=== PATIENT | female | born 1950 | race Caucasian/White ===

== ENCOUNTER 2016-11-25 14:35 | Outpatient (CLI) | payer MEDICARE, OTHER | END 2016-11-25 14:36 | disposition home or self-care (01) | DX: N39.0 Urinary tract infection, site not specified (principal) ==

== ENCOUNTER 2017-03-17 08:00 | Outpatient (CLI) | payer MEDICARE, OTHER | END 2017-03-17 08:01 | disposition home or self-care (01) | DX: E78.2 Mixed hyperlipidemia (principal); Z79.899 Other long term (current) drug therapy; I10 Essential (primary) hypertension ==

== ENCOUNTER 2017-03-24 07:53 | Outpatient (CLI) | payer MEDICARE, OTHER ==
[2017-03-24 08:36] LABS: HEMOGLOBIN A1C 0.5 g/dL
== END 2017-03-24 07:54 | disposition home or self-care (01) ==
LOC: LAB 07:53
PROVIDERS: ATTEND Internal Medicine
DX: R73.09 Other abnormal glucose (principal)
CPT/HCPCS: 36415; 82947; 82950; 83036

== ENCOUNTER 2017-10-18 08:35 | Outpatient (CLI) | payer MEDICARE, OTHER ==
[2017-10-18 09:37] LABS: CHOL/HDL RATIO 4.3 (<4.4); CHOLESTEROL 189 mg/dL; HDL CHOLESTEROL 44 mg/dL; LDL/HDL RATIO 2.8 (<4.4); TRIGLYCERIDES 119 mg/dL; VLDL CHOLESTEROL 24 mg/dL
== END 2017-10-18 08:36 | disposition home or self-care (01) ==
LOC: LAB 08:35
PROVIDERS: ATTEND Nurse Practitioner Primary Care
DX: Z51.81 Encounter for therapeutic drug level monitoring (principal); E78.5 Hyperlipidemia, unspecified
CPT/HCPCS: 36415; 80061; 84450; 84460

== ENCOUNTER 2017-12-07 08:00 | Outpatient (CLI) | payer MEDICARE, OTHER | END 2017-12-07 08:01 | disposition home or self-care (01) | LOC: LAB.R 08:00 | PROVIDERS: ATTEND Internal Medicine | DX: R05 Cough (principal) | CPT/HCPCS: 87275; 87276 ==

== ENCOUNTER 2018-02-16 08:00 | Outpatient (CLI) | payer MEDICARE, OTHER ==
[2018-02-16 13:31] LABS: BASOPHILS # (AUTO) 0.1 10^3/uL (0.0-0.1); BASOPHILS % (AUTO) 0.8 %; EOSINOPHILS # (AUTO) 0.2 10^3/uL (0.0-0.7); EOSINOPHILS % (AUTO) 2.8 %; HGB - HEMOGLOBIN 14.5 g/dL (12.0-16.0); LYMPHOCYTES # (AUTO) 1.9 10^3/uL (1.5-3.5); LYMPHOCYTES % (AUTO) 21.7 %; MEAN CORPUSCULAR HGB CONC 34.6 g/dL (32.0-36.0); MEAN CORPUSCULAR VOLUME 89.7 fL (81.0-99.0); MEAN PLATELET VOLUME 7.1 fL (7.9-10.8); MONOCYTES # (AUTO) 0.6 10^3/uL (0.0-1.0); MONOCYTES % (AUTO) 7.1 %; NEUTROPHILS # (AUTO) 5.9 10^3/uL (1.5-6.6); NEUTROPHILS % (AUTO) 67.6 %; PLT - PLATELET COUNT 274 10^3/uL (130-450); RED BLOOD COUNT 4.67 10^6/uL (4.20-5.40); WHITE BLOOD COUNT 8.7 x10^3/uL (4.8-10.8)
[2018-02-16 13:35] LABS: ALBUMIN 4.4 g/dL (3.2-5.5); ALBUMIN/GLOBULIN RATIO 1.5 (1.0-2.2); ALKALINE PHOSPHATASE 59 IU/L (42-121); ALT ALANINE AMINOTRANSFERASE 41 IU/L (10-60); AST ASPARTATE AMINOTRANSFERASE 26 IU/L (10-42); BILIRUBIN,TOTAL 0.8 mg/dL (0.2-1.0); BUN - BLOOD UREA NITROGEN 12 mg/dL (6-20); CALCIUM 9.1 mg/dL (8.5-10.3); CARBON DIOXIDE - CO2 27 mmol/L (21-32); CHLORIDE 100 mmol/L (101-111); CREATININE 0.7 mg/dL (0.4-1.0); GFR - MDRD 83 (>89); GLUCOSE 104 mg/dL (70-100); SODIUM 136 mmol/L (135-145); TOTAL PROTEIN 7.4 g/dL (6.7-8.2)
[2018-02-16 13:53] LABS: CRP - C-REACTIVE PROTEIN < 1.0 mg/dL (0-1.0)
== END 2018-02-16 08:01 | disposition home or self-care (01) ==
LOC: LAB.R 08:00
PROVIDERS: ATTEND Internal Medicine
DX: R53.83 Other fatigue (principal)
CPT/HCPCS: 80053; 84443; 85025; 85651; 86140

== ENCOUNTER 2018-02-19 08:00 | Outpatient (CLI) | payer MEDICARE, OTHER | END 2018-02-19 08:01 | LOC: LAB.R 08:00 | PROVIDERS: ATTEND Physician Assistant Medical | DX: N39.0 Urinary tract infection, site not specified (principal) | CPT/HCPCS: 87086 ==

== ENCOUNTER 2018-02-22 11:46 | Outpatient (CLI) | payer MEDICARE, OTHER ==
[2018-02-22] MEDS ORDERED: IOPAMIDOL-300 100 ML VIAL ONE (12:17)
[2018-02-22] MEDS ORDERED: IOPAMIDOL-300 50 ML VIAL ONE (12:17)
[2018-02-22] MEDS ORDERED: IOPAMIDOL-300 50 ML VIAL PO ONE (13:29)
[2018-02-22] MEDS ORDERED: IOPAMIDOL-300 100 ML VIAL IVP ONE (13:29)
--- NOTE | 2018-02-22 14:15 | CT Report ---
CT ABDOMEN AND PELVIS WITH AND WITHOUT CONTRAST: 02/22/2018 CLINICAL INDICATION: Fatigue, nausea, pain, history of kidney stones. TECHNIQUE: Axial CT images of the abdomen and pelvis were obtained prior to and following 100 mL Isovue 300 intravenously as well as oral contrast. COMPARISON: No previous CT is available for comparison. FINDINGS: Limited evaluation of the lung bases is unremarkable. ABDOMEN: On the unenhanced images, there is no evidence of nephrolithiasis or hydronephrosis. The kidneys demonstrate symmetric enhancement. The liver demonstrates diffuse decrease in attenuation, compatible with fatty infiltration. The spleen, pancreas and adrenal glands are unremarkable. The gallbladder is surgically absent. No bowel dilatation, free gas, or free fluid is present. PELVIS: The distal ureters and urinary bladder appear unremarkable. There is no evidence of ureterolithiasis. Scattered sigmoid diverticula are present, without CT evidence of diverticulitis. No pelvic adenopathy or free fluid is present. The patient is status post hysterectomy. Osseous structures demonstrate degenerative changes. IMPRESSION: POSTOPERATIVE CHANGES OF CHOLECYSTECTOMY AND HYSTERECTOMY. NO EVIDENT ETIOLOGY FOR PATIENT'S PAIN AND NAUSEA. CT DOSE REDUCTION STATEMENT In accordance with CT protocol optimization, one or more of the following dose reduction techniques were utilized for this exam: automated exposure control, adjustment of mA and/or KV based on patient size, or use of iterative reconstructive technique. TD: 02/22/2018 14:14
== END 2018-02-22 11:47 | disposition home or self-care (01) ==
LOC: DI 11:46
PROVIDERS: ATTEND Physician Assistant Medical
DX: R14.0 Abdominal distension (gaseous) (principal); R10.9 Unspecified abdominal pain; R53.83 Other fatigue; R11.0 Nausea; Z87.442 Personal history of urinary calculi; Z90.49 Acquired absence of other specified parts of digestive tract; Z90.710 Acquired absence of both cervix and uterus
CPT/HCPCS: 74178; Q9967

== ENCOUNTER 2018-06-22 11:13 | Outpatient (CLI) | payer MEDICARE, OTHER ==
[2018-06-22 14:06] LABS: BILIRUBIN,URINE NEGATIVE (NEGATIVE); GLUCOSE, URINE (UA) NEGATIVE (NEGATIVE); KETONES,URINE (UA) NEGATIVE (NEGATIVE); LEUKOCYTE ESTERASE, URINE TRACE (NEGATIVE); NITRITE,URINE NEGATIVE (NEGATIVE); OCCULT BLOOD,URINE NEGATIVE (NEGATIVE); PH,URINE 6.5 PH (5.0-7.5); PROTEIN,URINE NEGATIVE (NEGATIVE); UROBILINOGEN,URINE 0.2 (NORMAL) E.U./dL (NORMAL)
[2018-06-22 14:23] LABS: CLARITY,URINE CLEAR (CLEAR)
[2018-06-22 14:25] LABS: BACTERIA,URINE Few /HPF (None Seen); MUCUS,URINE Few Strands; RBC,URINE 0-5 /HPF (0-5); SQUAMOUS EPITHELIAL CELL,UR FEW Squamous (<= Few)
== END 2018-06-22 11:14 | disposition home or self-care (01) ==
LOC: LAB.R 11:13
PROVIDERS: ATTEND Nurse Practitioner Primary Care
DX: N30.00 Acute cystitis without hematuria (principal)
CPT/HCPCS: 81001; 81003; 87086

== ENCOUNTER 2018-07-06 17:38 | Emergency (ER) | payer MEDICARE, OTHER ==
[2018-07-06 19:11] LABS: BASOPHILS # (AUTO) 0.1 10^3/uL (0.0-0.1); BASOPHILS % (AUTO) 0.9 %; EOSINOPHILS # (AUTO) 0.2 10^3/uL (0.0-0.7); EOSINOPHILS % (AUTO) 2.5 %; HGB - HEMOGLOBIN 13.7 g/dL (12.0-16.0); LYMPHOCYTES # (AUTO) 1.7 10^3/uL (1.5-3.5); LYMPHOCYTES % (AUTO) 21.3 %; MEAN CORPUSCULAR HGB CONC 35.2 g/dL (32.0-36.0); MEAN PLATELET VOLUME 6.5 fL (7.9-10.8); MONOCYTES # (AUTO) 0.7 10^3/uL (0.0-1.0); MONOCYTES % (AUTO) 8.4 %; NEUTROPHILS # (AUTO) 5.4 10^3/uL (1.5-6.6); NEUTROPHILS % (AUTO) 66.9 %; PLT - PLATELET COUNT 237 10^3/uL (130-450); RED BLOOD COUNT 4.29 10^6/uL (4.20-5.40); RED CELL DISTRIBUTION WIDTH 12.1 % (12.0-15.0); WHITE BLOOD COUNT 8.1 x10^3/uL (4.8-10.8)
[2018-07-06 19:21] LABS: ALBUMIN/GLOBULIN RATIO 1.4 (1.0-2.2); BILIRUBIN,TOTAL 0.6 mg/dL (0.2-1.0); CALCIUM 9.5 mg/dL (8.5-10.3); CREATININE 0.7 mg/dL (0.4-1.0); TOTAL PROTEIN 6.9 g/dL (6.7-8.2)
[2018-07-06 19:22] LABS: BILIRUBIN,URINE NEGATIVE (NEGATIVE); GLUCOSE, URINE (UA) NEGATIVE (NEGATIVE); KETONES,URINE (UA) NEGATIVE (NEGATIVE); LEUKOCYTE ESTERASE, URINE MODERATE (NEGATIVE); NITRITE,URINE NEGATIVE (NEGATIVE); OCCULT BLOOD,URINE TRACE-INTA (NEGATIVE); PH,URINE 6.5 PH (5.0-7.5); PROTEIN,URINE NEGATIVE (NEGATIVE); UROBILINOGEN,URINE 0.2 (NORMAL) E.U./dL (NORMAL)
[2018-07-06 19:34] LABS: CLARITY,URINE CLEAR (CLEAR); SQUAMOUS EPITHELIAL CELL,UR MANY Squamous (<= Few)
[2018-07-06 19:35] LABS: BACTERIA,URINE Rare /HPF (None Seen)
[2018-07-06] MEDS ORDERED: ONDANSETRON 4 MG/2 ML VIAL IVP STA (20:31)
[2018-07-06] MEDS ORDERED: SODIUM CHLORIDE 0.9% 1,000 ML IV ONE (20:31)
[2018-07-06] MEDS ORDERED: HYDROmorphone 1 MG/ML CARPUJECT IVP STA (20:31)
[2018-07-06] MEDS ORDERED: IOPAMIDOL-300 100 ML VIAL ONE (20:49)
[2018-07-06] MEDS ORDERED: IOPAMIDOL-300 100 ML VIAL IVP ONE (21:13)
[2018-07-06] MEDS ORDERED: MAG HYDROX/AL HYDROX/SIMETH 30 ML UDC PO STA (21:28)
[2018-07-06] MEDS ORDERED: FAMOTIDINE 20 MG in SODIUM CHLORIDE 0.9% 50 ML IV ONE (21:28)
[2018-07-06] MEDS ORDERED: ACETAMINOPHEN 500 MG TABLET PO STA (21:37)
[2018-07-06] MEDS ORDERED: KETOROLAC 60 MG/2 ML VIAL IVP STA (21:37)
--- NOTE | 2018-07-06 21:57 | CT Report ---
Reason: flank pain Procedure Date: 07/06/2018 Accession Number: [id number] / [id number] Procedure: CT - Abdomen/Pelvis W/ CPT Code: FULL RESULT: EXAM: CT ABDOMEN AND PELVIS EXAM DATE: 07/06/2018 09:20 PM. CLINICAL HISTORY: Right flank pain. COMPARISONS: ABDOMEN/PELVIS W/WO 02/22/2018. TECHNIQUE: Routine helical CT imaging was performed through the abdomen and pelvis. IV contrast: 100 cc of Isovue-300. Enteric contrast: No. Reconstructions: Coronal and sagittal. In accordance with CT protocol optimization, one or more of the following dose reduction techniques were utilized for this exam: automated exposure control, adjustment of mA and/or KV based on patient size, or use of iterative reconstructive technique. FINDINGS: Lung Bases: Unremarkable. Liver: Diffuse low density Gallbladder/Bile Ducts: Cholecystectomy. No dilated ducts. Spleen: Normal. Pancreas: Normal. Adrenal Glands: Normal. Kidneys: Normal. No masses or hydronephrosis. Peritoneal Cavity/Bowel: Mild diverticulosis. No free fluid, free air or adenopathy. No masses or acute inflammatory process. Nonvisualized appendix. Pelvic Organs: Hysterectomy. Unremarkable bladder. Vasculature: No aneurysms or other significant abnormality. Bones: No significant abnormality. Other: None. IMPRESSION: 1. Mild diverticulosis without diverticulitis or other acute bowel abnormality. 2. Nonvisualized appendix. 3. Hepatic steatosis. 4. Cholecystectomy and hysterectomy noted. RADIA
[2018-07-06] MEDS ORDERED: LIDOCAINE VISCOUS 2% 15 ML UDC MM STA (22:51)
[2018-07-06] MEDS ORDERED: cefTRIAXone 1 GM in SODIUM CHLORIDE 0.9% MINIBAG 100 ML IV STA (22:51)
--- NOTE | 2018-07-06 22:53 | ED Physician Documentation ---
PD HPI ABD PAIN - Stated complaint Stated Complaint: ABD PX/NAUSEA - Chief complaint Chief Complaint: Abd Pain - Additional information Additional information: 68-year-old female presents the emergency department with increasing right flank pain which started earlier today. The patient reports not feeling well for the past couple days but developed flank pain today. No radiation. Symptoms are described as moderate. No fevers. No relieving factors. Review of Systems Constitutional: reports: Chills, Fatigue. 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: Uterine cancer : Kidney stones Psych: Depression - Past Surgical History General: Cholecystectomy, Appendectomy, Colonoscopy, EGD Ortho: Knee replacement /JOINERY FACTORY WORKER: Hysterectomy, Oophrectomy - Present Medications Home Medications: Ambulatory Orders Medication Instructions Recorded Confirmed Cephalexin [Keflex] 500 mg PO BID #14 capsule 07/06/18 - Allergies Allergies/Adverse Reactions: Allergies Allergy/AdvReac Type Severity Reaction Status Date / Time codeine Allergy Respiratory Verified 07/06/18 18:02 morphine Allergy Emesis Verified 07/06/18 18:02 - Social History Does the pt smoke?: No Smoking Status: Never smoker Does the pt drink ETOH?: No Substance Use and Type: Marijuana PD ED PE NORMAL - General General: Alert and oriented X 3, No acute distress - HEENT HEENT: Atraumatic, PERRL, EOMI, Ears normal - Neck Neck: Supple, no meningeal sign - Cardiac Cardiac: RRR, Strong equal pulses - Respiratory Respiratory: Clear bilaterally - Abdomen Abdomen: Soft, Non tender, Non distended, Other (The patient is tender in her right flank, no rash) - Derm Derm: Normal color, No rash - Extremities Extremities: No deformity, Normal ROM s pain, No edema - Neuro Neuro: Alert and oriented X 3, No motor deficit, Normal speech - Psych Psych: Normal affect Results - Vitals Vitals: Vital Signs - 24 hr 07/06/18 07/06/1818 17:57 19:16 20:44 Temperature 37.1 C 37.2 C 37.1 C Heart Rate 90 86 69 Respiratory 18 20 20 Rate Blood Pressure 134/113 H 145/84 H 122/61 O2 Saturation 96 97 96 07/06/18 22:28 Temperature 37.1 C Heart Rate 72 Respiratory 20 Rate Blood Pressure 134/73 H O2 Saturation 96 Oxygen O2 Source Room air - Labs Labs: Laboratory Tests 07/06/18 07/06/18 07/06/18 19:00 19:00 19:00 WBC 8.1 RBC 4.29 Hgb 13.7 Hct 39.0 MCV 91.0 MCH 32.0 H MCHC 35.2 RDW 12.1 Plt Count 237 MPV 6.5 L Neut # (Auto) 5.4 Lymph # (Auto) 1.7 [place] # (Auto) 0.7 Eos # (Auto) 0.2 Baso # (Auto) 0.1 Absolute Nucleated RBC 0.00 Nucleated RBC % 0.0 Sodium 137 Potassium 3.7 Chloride 99 L Carbon Dioxide 28 Anion Gap 10.0 BUN 14 Creatinine 0.7 Estimated GFR (MDRD) 83 L Glucose 98 Calcium 9.5 Total Bilirubin 0.6 AST 28 ALT 38 Alkaline Phosphatase 62 Total Protein 6.9 Albumin 4.0 Globulin 2.9 Albumin/Globulin Ratio 1.4 Lipase 30 Urine Color YELLOW Urine Clarity CLEAR Urine pH 6.5 Ur Specific [place] <=1.005 Urine Protein NEGATIVE Urine Glucose (UA) NEGATIVE Urine Ketones NEGATIVE Urine Occult Blood TRACE-INTA Urine Nitrite NEGATIVE Urine Bilirubin NEGATIVE Urine Urobilinogen 0.2 (NORMAL) Ur Leukocyte Esterase MODERATE H Urine RBC 6-10 H Urine WBC >25 H Ur Squamous Epith Cells MANY Squamous H Urine Bacteria Rare Ur Microscopic Review INDICATED Urine Culture Comments NOT INDICATED - Rads (name of study) CT abdomen pelvis Radiology: Final report received (1. Mild diverticulosis without diverticulitis or other acute bowel abnormality. 2. Nonvisualized appendix.4. Cholecystectomy and hysterectomy noted. ) PD MEDICAL DECISION MAKING - ED course ED course: The patient developed some intervention after the initial pain medications. The patient was treated and on reevaluation the patient is resting comfortably and her symptoms appear much improved. The patient's workup does not reveal an acute etiology that would necessitate admission to the hospital or acute surgical consultation. The patient appears appropriate at this time for discharge home in ongoing outpatient management. I discussed with her the findings and plan and recommended follow-up primary care. I discussed warning signs and recommended returning to the emergency department immediately for worsening or any concerns. - Sepsis Event Vital Signs: Vital Signs - 24 hr 07/06/18 07/06/18 07/06/18 17:57 19:16 20:44 Temperature 37.1 C 37.2 C 37.1 C Heart Rate 90 86 69 Respiratory 18 20 20 Rate Blood Pressure 134/113 H 145/84 H 122/61 O2 Saturation 96 97 96 07/06/18 22:28 Temperature 37.1 C Heart Rate 72 Respiratory 20 Rate Blood Pressure 134/73 H O2 Saturation 96 Oxygen O2 Source Room air Departure - Departure Disposition: 01 Home, Self Care Clinical Impression: Acute flank pain UTI (urinary tract infection) Qualifiers: Urinary tract infection type: acute cystitis Hematuria presence: with hematuria Qualified Code(s): N30.01 - Acute cystitis with hematuria Condition: Good Instructions: Abdominal Pain, ED Bladder Infec Cystitis Vs Pyelo Ch Follow-Up: Chris Serna MD [Primary Care Provider] - Within 1 week Prescriptions: Cephalexin [Keflex] 500 mg PO BID #14 capsule Comments: Please return to the emergency department for worsening symptoms or any concerns
[2018-07-06] MEDS ORDERED: FLUCONAZOLE 100 MG TABLET PO STA ×2 (23:46→23:51)
[2018-07-07 00:02] VITALS: BP 132/71
== END 2018-07-07 | disposition home or self-care (01) ==
LOC: ED 17:38
DX: R10.31 Right lower quadrant pain (principal); N30.01 Acute cystitis with hematuria; I10 Essential (primary) hypertension; E78.00 Pure hypercholesterolemia, unspecified; Z85.42 Personal history of malignant neoplasm of other parts of uterus; Z96.659 Presence of unspecified artificial knee joint; Z90.710 Acquired absence of both cervix and uterus; Z90.721 Acquired absence of ovaries, unilateral; Z87.442 Personal history of urinary calculi
CPT/HCPCS: 36415; 74177; 80053; 81001; 83690; 85025; 96361; 96365; 96367; 96375; 99284; A9270; J1170; J7040; Q9967; 81003; 87086

== ENCOUNTER 2018-10-10 17:17 | Emergency (ER) | payer MEDICARE, OTHER ==
[2018-10-10 17:24] VITALS: BP 140/68
--- NOTE | 2018-10-10 17:25 | ED Physician Documentation ---
PD HPI FEMALE - Stated complaint Stated Complaint: NO URINATION/POST OP - Chief complaint Chief Complaint: General - History obtained from History obtained from: Patient - History of Present Illness Timing - onset: Today Timing - duration: Days (1/2) Timing - details: Gradual onset Recently seen: Clinic (Seen this morning for recheck post op and had griffiths removed post op bladder/vaginal surgery 2 days ago.Has had poor to now no urine output through the day and is feeling uncomfortable now.) Review of Systems Constitutional: denies: Fever, Chills Cardiac: denies: Chest pain / pressure Respiratory: denies: Dyspnea PD PAST MEDICAL HISTORY - Past Medical History Cardiovascular: Hypertension, High cholesterol Respiratory: Asthma Neuro: Headaches GI: GERD 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 : Kidney stones Psych: Depression - Past Surgical History General: Cholecystectomy, Appendectomy, Colonoscopy, EGD Ortho: Knee replacement /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: Hysterectomy, Oophrectomy - Present Medications Home Medications: Ambulatory Orders Medication Instructions Recorded Confirmed Cephalexin [Keflex] 500 mg PO BID #14 capsule 07/06/18 Nitrofurantoin Monohyd/M-Cryst 100 mg PO BID #10 capsule 10/10/18 [Macrobid 100 mg Capsule] - Allergies Allergies/Adverse Reactions: Allergies Allergy/AdvReac Type Severity Reaction Status Date / Time cephalexin [From Keflex] Allergy Unknown Verified 10/10/18 17:24 codeine Allergy Respiratory Verified 10/10/18 17:24 morphine Allergy Emesis Verified 10/10/18 17:24 - Social History Does the pt smoke?: No Smoking Status: Never smoker Does the pt drink ETOH?: No PD ED PE NORMAL - Vitals Vital signs reviewed: Yes - General General: Alert and oriented X 3, Well developed/nourished - Abdomen Abdomen: Soft, Other (fullness in suprapubic area with some tenderness. ) - Female Female : Deferred - Derm Derm: Normal color, Warm and dry Results - Vitals Vitals: Oxygen O2 Source Room air - Labs Labs: Microbiology 10/10/18 18:34 Urine Culture - Preliminary Urine,Catheterized Laboratory Tests 10/10/18 18:34 Urine Color YELLOW Urine Clarity CLEAR Urine pH 7.0 Ur Specific [place] 1.010 Urine Protein NEGATIVE Urine Glucose (UA) NEGATIVE Urine Ketones NEGATIVE Urine Occult Blood MODERATE H Urine Nitrite POSITIVE H Urine Bilirubin NEGATIVE Urine Urobilinogen 0.2 (NORMAL) Ur Leukocyte Esterase SMALL H Urine RBC 0-5 Urine WBC 6-10 H Ur Squamous Epith Cells NONE SEEN Urine Bacteria Moderate H Ur Microscopic Review INDICATED Urine Culture Comments INDICATED PD MEDICAL DECISION MAKING - ED course Complexity details: re-evaluated patient (pt feeling better after bladder drained. ), d/w patient, d/w PMD (the surgical office called and said they would follow up with her on Monday (in 2 days). ) Departure - Departure Disposition: Home, Self Care Clinical Impression: Postoperative urinary retention Condition: Stable Record reviewed to determine appropriate education?: Yes Instructions: ED Catheter Care Griffiths Follow-Up: Chris Serna MD [Primary Care Provider] - Rosa Elena White MD [Physician No Access] - Prescriptions: Nitrofurantoin Monohyd/M-Cryst [Macrobid 100 mg Capsule] 100 mg PO BID #10 capsule Comments: Keep the catheter in and your clinic said they will follow-up with you on Monday for removal of it again. They asked that we start an antibiotic and will have you take Macrobid twice daily. Drink lots of fluids. Discharge Date/Time: 10/10/18 19:00
[2018-10-10] MEDS ORDERED: NITROFURANTOIN MACRO 100 MG CAPSULE PO STA (17:57)
[2018-10-10 18:47] LABS: BILIRUBIN,URINE NEGATIVE (NEGATIVE); GLUCOSE, URINE (UA) NEGATIVE (NEGATIVE); KETONES,URINE (UA) NEGATIVE (NEGATIVE); LEUKOCYTE ESTERASE, URINE SMALL (NEGATIVE); NITRITE,URINE POSITIVE (NEGATIVE); OCCULT BLOOD,URINE MODERATE (NEGATIVE); PROTEIN,URINE NEGATIVE (NEGATIVE); UROBILINOGEN,URINE 0.2 (NORMAL) E.U./dL (NORMAL)
[2018-10-10 18:48] LABS: CLARITY,URINE CLEAR (CLEAR)
[2018-10-10 18:58] LABS: BACTERIA,URINE Moderate /HPF (None Seen); RBC,URINE 0-5 /HPF (0-5); SQUAMOUS EPITHELIAL CELL,UR NONE SEEN (<= Few)
== END 2018-10-10 19:00 | disposition home or self-care (01) ==
LOC: ED 17:17
DX: N99.89 Other postprocedural complications and disorders of genitourinary system (principal); R33.8 Other retention of urine; I10 Essential (primary) hypertension; E78.00 Pure hypercholesterolemia, unspecified; Z96.659 Presence of unspecified artificial knee joint
CPT/HCPCS: 51702; 81001; 87077; 87086; 87181; 99283; A9270; 81003

== ENCOUNTER 2018-10-22 11:54 | Outpatient (CLI) | payer MEDICARE, OTHER ==
--- NOTE | 2018-10-22 14:36 | XRAY Report ---
Reason: CALCULUS OF KIDNEY Procedure Date: 10/22/2018 Accession Number: [id number] / [id number] Procedure: XR - Abdomen 1 View X-Ray CPT Code: 15831 FULL RESULT: EXAM: ABDOMEN RADIOGRAPHY EXAM DATE: 10/22/2018 12:36 PM. CLINICAL HISTORY: Calculus of kidney. COMPARISON: None. TECHNIQUE: 1 view. FINDINGS: Bowel Gas Pattern: Within normal limits. No dilated loops. Other: A well-rounded calcific density projecting over the pelvis to left of center is felt to represent a phlebolith given the appearance. IMPRESSION: No definite renal calculus. RADIA
== END 2018-10-22 11:55 | disposition home or self-care (01) ==
LOC: DI 11:54
PROVIDERS: ATTEND Specialist
DX: N20.0 Calculus of kidney (principal)
CPT/HCPCS: 74018

== ENCOUNTER 2018-11-28 08:00 | Outpatient (CLI) | payer MEDICARE, OTHER ==
[2018-11-28 11:41] LABS: BASOPHILS # (AUTO) 0.1 10^3/uL (0.0-0.1); BASOPHILS % (AUTO) 0.8 %; EOSINOPHILS # (AUTO) 0.3 10^3/uL (0.0-0.7); EOSINOPHILS % (AUTO) 3.6 %; HGB - HEMOGLOBIN 13.7 g/dL (12.0-16.0); LYMPHOCYTES # (AUTO) 1.3 10^3/uL (1.5-3.5); LYMPHOCYTES % (AUTO) 17.1 %; MEAN CORPUSCULAR HEMOGLOBIN 31.3 pg (27.0-31.0); MEAN CORPUSCULAR HGB CONC 34.7 g/dL (32.0-36.0); MEAN CORPUSCULAR VOLUME 90.2 fL (81.0-99.0); MONOCYTES # (AUTO) 0.6 10^3/uL (0.0-1.0); MONOCYTES % (AUTO) 7.3 %; NEUTROPHILS # (AUTO) 5.5 10^3/uL (1.5-6.6); NEUTROPHILS % (AUTO) 71.2 %; PLT - PLATELET COUNT 247 10^3/uL (130-450); RED BLOOD COUNT 4.37 10^6/uL (4.20-5.40); RED CELL DISTRIBUTION WIDTH 12.5 % (12.0-15.0); WHITE BLOOD COUNT 7.8 x10^3/uL (4.8-10.8)
[2018-11-28 14:14] LABS: ALBUMIN/GLOBULIN RATIO 1.2 (1.0-2.2); ALKALINE PHOSPHATASE 60 IU/L (42-121); ALT ALANINE AMINOTRANSFERASE 33 IU/L (10-60); AST ASPARTATE AMINOTRANSFERASE 27 IU/L (10-42); BILIRUBIN,TOTAL 0.3 mg/dL (0.2-1.0); BUN - BLOOD UREA NITROGEN 13 mg/dL (6-20); CALCIUM 8.8 mg/dL (8.5-10.3); CARBON DIOXIDE - CO2 27 mmol/L (21-32); CHLORIDE 101 mmol/L (101-111); CHOLESTEROL 186 mg/dL; CREATININE 0.6 mg/dL (0.4-1.0); GFR - MDRD 99 (>89); GLUCOSE 98 mg/dL (70-100); HDL CHOLESTEROL 47 mg/dL; LDL CHOLESTEROL,CALCULATED 105 mg/dL; LDL/HDL RATIO 2.2 (<4.4); SODIUM 136 mmol/L (135-145); TOTAL PROTEIN 7.3 g/dL (6.7-8.2); VLDL CHOLESTEROL 34 mg/dL
== END 2018-11-28 23:59 | disposition home or self-care (01) ==
LOC: LAB.R 08:00
PROVIDERS: ATTEND Nurse Practitioner Primary Care
DX: E78.5 Hyperlipidemia, unspecified (principal); R53.83 Other fatigue; Z51.81 Encounter for therapeutic drug level monitoring
CPT/HCPCS: 80053; 80061; 83721; 84443; 85025

== ENCOUNTER 2019-01-24 11:45 | Outpatient (CLI) | payer MEDICARE, OTHER ==
[2019-01-24 12:26] LABS: GLUCOSE, URINE (UA) 100 mg/dL (NEGATIVE); KETONES,URINE (UA) NEGATIVE (NEGATIVE); LEUKOCYTE ESTERASE, URINE MODERATE (NEGATIVE); NITRITE,URINE POSITIVE (NEGATIVE); OCCULT BLOOD,URINE TRACE-INTA (NEGATIVE); PH,URINE 6.5 PH (5.0-7.5); PROTEIN,URINE 30 mg/dL (NEGATIVE); UROBILINOGEN,URINE 4 E.U./dL (NORMAL)
[2019-01-24 12:34] LABS: BILIRUBIN,URINE NEGATIVE (NEGATIVE); ICTOTEST,URINE NEGATIVE
[2019-01-24 12:35] LABS: CLARITY,URINE HAZY (CLEAR)
[2019-01-24 12:37] LABS: BACTERIA,URINE Many /HPF (None Seen); RBC,URINE 0-5 /HPF (0-5); SQUAMOUS EPITHELIAL CELL,UR RARE Squamous (<= Few)
== END 2019-01-24 11:46 | disposition home or self-care (01) ==
LOC: LAB 11:45
PROVIDERS: ATTEND Specialist
DX: R30.0 Dysuria (principal)
CPT/HCPCS: 81001; 81003; 87086; 87181

== ENCOUNTER 2019-08-15 08:00 | Outpatient (CLI) | payer MEDICARE, OTHER | END 2019-08-15 23:59 | disposition home or self-care (01) | LOC: LAB.R 08:00 | PROVIDERS: ATTEND Family Medicine | DX: R30.0 Dysuria (principal) | CPT/HCPCS: 87086 ==

== ENCOUNTER 2019-08-30 08:30 | Outpatient (CLI) | payer MEDICARE, OTHER ==
[2019-08-30 09:13] LABS: ALBUMIN/GLOBULIN RATIO 1.4 (1.0-2.2); BILIRUBIN,TOTAL 0.6 mg/dL (0.2-1.0); CREATININE 0.7 mg/dL (0.4-1.0); TOTAL PROTEIN 6.8 g/dL (6.7-8.2)
== END 2019-08-30 08:31 | disposition home or self-care (01) ==
LOC: LAB 08:30
PROVIDERS: ATTEND Nurse Practitioner
DX: I10 Essential (primary) hypertension (principal); R20.0 Anesthesia of skin
CPT/HCPCS: 36415; 80053

== ENCOUNTER 2019-09-04 10:02 | Outpatient (CLI) | payer MEDICARE, OTHER ==
[2019-09-04 10:47] LABS: ALBUMIN 4.2 g/dL (3.2-5.5); ALBUMIN/GLOBULIN RATIO 1.3 (1.0-2.2); BILIRUBIN,TOTAL 0.7 mg/dL (0.2-1.0); CALCIUM 9.3 mg/dL (8.5-10.3); CREATININE 0.7 mg/dL (0.4-1.0); TOTAL PROTEIN 7.4 g/dL (6.7-8.2)
== END 2019-09-04 10:03 | disposition home or self-care (01) ==
LOC: LAB 10:02
PROVIDERS: ATTEND Nurse Practitioner
DX: R20.0 Anesthesia of skin (principal); I10 Essential (primary) hypertension
CPT/HCPCS: 36415; 80053

== ENCOUNTER 2019-09-05 15:23 | Outpatient (CLI) | payer MEDICARE, OTHER ==
[2019-09-05 15:41] LABS: BASOPHILS # (AUTO) 0.1 10^3/uL (0.0-0.1); BASOPHILS % (AUTO) 0.9 %; EOSINOPHILS # (AUTO) 0.3 10^3/uL (0.0-0.7); EOSINOPHILS % (AUTO) 2.9 %; LYMPHOCYTES # (AUTO) 2.3 10^3/uL (1.5-3.5); LYMPHOCYTES % (AUTO) 26.2 %; MEAN CORPUSCULAR HEMOGLOBIN 31.1 pg (27.0-31.0); MEAN CORPUSCULAR HGB CONC 33.3 g/dL (32.0-36.0); MEAN CORPUSCULAR VOLUME 93.3 fL (81.0-99.0); MEAN PLATELET VOLUME 8.5 fL (7.9-10.8); MONOCYTES # (AUTO) 0.8 10^3/uL (0.0-1.0); NEUTROPHILS # (AUTO) 5.2 10^3/uL (1.5-6.6); NEUTROPHILS % (AUTO) 60.7 %; PLT - PLATELET COUNT 240 10^3/uL (130-450); RED CELL DISTRIBUTION WIDTH 11.9 % (12.0-15.0); WHITE BLOOD COUNT 8.6 x10^3/uL (4.8-10.8)
[2019-09-05 16:38] LABS: HB2 TOTAL 14.4 g/dL; HEMOGLOBIN A1C 0.51 g/dL; HEMOGLOBIN A1C % 5.4 % (4.6-6.2)
--- NOTE | 2019-09-05 18:27 | XRAY Report ---
Reason: FEVER,COUGH,ASTHMA Procedure Date: 09/05/2019 Accession Number: [id number] / [id number] Procedure: XR - Chest 2 View X-Ray CPT Code: 63742 FULL RESULT: EXAM: CHEST RADIOGRAPHY EXAM DATE: 09/05/2019 03:50 PM. CLINICAL HISTORY: FEVER,COUGH,ASTHMA. COMPARISON: XR CHEST PA AND LAT 11/15/2012 1:41 PM. TECHNIQUE: 2 views. FINDINGS: Lungs/Pleura: No focal opacities evident. No pleural effusion. No pneumothorax. Normal volumes. Mediastinum: Borderline heart size. Other: Surgical clips upper abdomen IMPRESSION: Clear lungs. No acute findings. RADIA
== END 2019-09-05 15:24 | disposition home or self-care (01) ==
LOC: DI 15:23
PROVIDERS: ATTEND Family Medicine
DX: J45.909 Unspecified asthma, uncomplicated (principal); R50.9 Fever, unspecified; R05 Cough; R73.01 Impaired fasting glucose
CPT/HCPCS: 36415; 71046; 83036; 85025; 85651; 86140

== ENCOUNTER 2019-09-19 09:56 | Outpatient (CLI) | payer MEDICARE, OTHER | END 2019-09-19 23:59 | disposition home or self-care (01) | LOC: LAB.R 09:56 | PROVIDERS: ATTEND Nurse Practitioner | DX: R50.9 Fever, unspecified (principal) | CPT/HCPCS: 87086 ==

== ENCOUNTER 2019-09-24 09:30 | Outpatient (CLI) | payer MEDICARE, OTHER | END 2019-09-24 23:59 | disposition home or self-care (01) | LOC: LAB.R 09:30 | PROVIDERS: ATTEND Nurse Practitioner | DX: N39.0 Urinary tract infection, site not specified (principal); R50.9 Fever, unspecified | CPT/HCPCS: 87086 ==

== ENCOUNTER 2019-10-21 09:52 | Outpatient (CLI) | payer MEDICARE, OTHER ==
--- NOTE | 2019-10-21 15:38 | MRI Report ---
Reason: RT SHOULDER PAIN Procedure Date: 10/21/2019 Accession Number: [id number] / [id number] Procedure: MRI - Shoulder RT W/O CPT Code: Final Report FULL RESULT: EXAM: RIGHT SHOULDER MRI WITHOUT CONTRAST EXAM DATE: 10/21/2019 11:06 AM. CLINICAL HISTORY: Right shoulder pain. COMPARISON: No previous scans available for comparison at time of dictation. TECHNIQUE: Multiplanar, multisequence T1-weighted and fluid-sensitive sequences of the shoulder without contrast. Other: None. FINDINGS: Acromioclavicular Region: The acromion is type II unipartite. AC joint shows moderate osteoarthritic change, marked arthrosis and synovial hypertrophic changes are present. The coracoacromial and coracoclavicular ligaments are intact. There is some bursal fluid present as well. Glenohumeral Region: No subluxation. There is mild global thinning of the articular cartilage in both sides of the glenohumeral joint. The glenohumeral ligaments and joint capsule are unremarkable. Bone Marrow: No fracture, marrow edema or bone lesions. Labrum: The labrum is unremarkable on this nonarthrographic study. Musculature/Rotator Cuff: Full thickness tear anterior distal supraspinatus tendon tear with fluid. This is 1.2 cm from front to back by 0.8 cm from side to side. Remaining portion of the supraspinatus is thickened and shows increased T2 signal. Similar but less severe changes are also seen in the infraspinatus and subscapularis portions. No other tears. Teres minor is normal. No proximal muscle edema or fatty atrophy. Biceps Tendon: The long head of the biceps tendon and biceps edda are intact. Other: The subcutaneous tissues are unremarkable. IMPRESSION: 1. Type II unipartite undersurface osseous acromion shape. AC joint shows moderate osteoarthritic change. Some bursal fluid is also present. 2. Full-thickness tear anterior distal supraspinatus tendon is filled with fluid. This is 1.2 x 0.8 cm. 3. No other worrisome imaging features. RADIA
== END 2019-10-21 09:53 | disposition home or self-care (01) ==
LOC: DI 09:52
PROVIDERS: ATTEND Orthopaedic Surgery
DX: M19.011 Primary osteoarthritis, right shoulder (principal); M75.101 Unspecified rotator cuff tear or rupture of right shoulder, not specified as traumatic

== ENCOUNTER 2019-11-04 09:06 | Outpatient (CLI) | payer MEDICARE, OTHER ==
[2019-11-04] MEDS ORDERED: GADOBUTROL 10 MMOL/10 ML VIAL ONE (09:12)
[2019-11-04] MEDS ORDERED: GADOBUTROL 10 MMOL/10 ML VIAL IVP ONE (13:14)
--- NOTE | 2019-11-05 10:26 | MRI Report ---
Reason: TRIGEMINAL NEURALGIA LT Procedure Date: 11/04/2019 Accession Number: [id number] / [id number] Procedure: MRI - Brain W/WO CPT Code: Final Report FULL RESULT: EXAM: MRI BRAIN WITHOUT AND WITH CONTRAST EXAM DATE: 11/04/2019 02:28 PM. CLINICAL HISTORY: Trigeminal neuralgia left. COMPARISON: None. TECHNIQUE: Multiplanar, multisequence T1-weighted and fluid-sensitive MR sequences of the brain were performed before and after administration of intravenous contrast. Sequences optimized for routine evaluation. Other: None. IV Contrast: . FINDINGS: No abnormal restricted diffusion signal or magnetic susceptibility is present in the brain parenchyma. Age appropriate prominence of the ventricles and sulci is noted. FLAIR hyperintensities are seen scattered throughout the cerebral hemisphere white matter bilaterally. There is an expected flow void in the major intracranial vessels at the skull base. Minimal patchy FLAIR hyperintense signal is seen in the crys. No mass is seen involving the cisternal segment of either 5th cranial nerve. There is no mass present in either Meckel's cave. Vascular structures are seen coursing near the cisternal segment of each 5th cranial nerve. These do not demonstrate mass effect. Specifically, no vascular structure is seen demonstrate a mass effect on the nerve root entry zone of either 5th cranial nerve cisternal segment. No enhancing mass is present in either cerebellopontine angle or internal auditory canal. The cavernous sinuses enhance in symmetric fashion. Expected enhancement is seen in the major dural venous sinuses. No enhancing mass is present in the brain parenchyma. No mass is seen in the region of either foramen ovale. No obvious mass is seen in the region of either foramen rotundum. No cerebellar tonsillar ectopia is present. IMPRESSION: 1. FLAIR hyperintensities are seen in the cerebral hemisphere white matter bilaterally and in the crys. These are nonspecific and are commonly seen secondary to small vessel ischemic change. 2. No intracranial mass. 3. No mass is seen along the cisternal segment of either 5th cranial nerve or in either Meckel's cave. RADIA
== END 2019-11-04 09:07 | disposition home or self-care (01) ==
LOC: DI 09:06
PROVIDERS: ATTEND Family Medicine
DX: G50.0 Trigeminal neuralgia (principal)
CPT/HCPCS: 70553; A9585

== ENCOUNTER 2019-11-18 08:46 | Outpatient (CLI) | payer MEDICARE, OTHER ==
[2019-11-18 09:22] LABS: BASOPHILS # (AUTO) 0.1 10^3/uL (0.0-0.1); BASOPHILS % (AUTO) 1.1 %; EOSINOPHILS # (AUTO) 0.2 10^3/uL (0.0-0.7); EOSINOPHILS % (AUTO) 3.1 %; HGB - HEMOGLOBIN 13.4 g/dL (12.0-16.0); LYMPHOCYTES # (AUTO) 1.6 10^3/uL (1.5-3.5); LYMPHOCYTES % (AUTO) 23.7 %; MEAN CORPUSCULAR HEMOGLOBIN 30.7 pg (27.0-31.0); MEAN CORPUSCULAR HGB CONC 33.2 g/dL (32.0-36.0); MEAN CORPUSCULAR VOLUME 92.4 fL (81.0-99.0); MEAN PLATELET VOLUME 8.8 fL (7.9-10.8); MONOCYTES # (AUTO) 0.5 10^3/uL (0.0-1.0); MONOCYTES % (AUTO) 7.8 %; NEUTROPHILS # (AUTO) 4.2 10^3/uL (1.5-6.6); PLT - PLATELET COUNT 219 10^3/uL (130-450); RED BLOOD COUNT 4.37 10^6/uL (4.20-5.40); RED CELL DISTRIBUTION WIDTH 12.4 % (12.0-15.0); WHITE BLOOD COUNT 6.5 x10^3/uL (4.8-10.8)
[2019-11-18 09:44] LABS: ALBUMIN 3.9 g/dL (3.2-5.5); ALBUMIN/GLOBULIN RATIO 1.4 (1.0-2.2); ALKALINE PHOSPHATASE 48 IU/L (42-121); ALT ALANINE AMINOTRANSFERASE 34 IU/L (10-60); AST ASPARTATE AMINOTRANSFERASE 24 IU/L (10-42); BILIRUBIN,TOTAL 0.6 mg/dL (0.2-1.0); BUN - BLOOD UREA NITROGEN 13 mg/dL (6-20); CALCIUM 8.8 mg/dL (8.5-10.3); CARBON DIOXIDE - CO2 27 mmol/L (21-32); CHLORIDE 104 mmol/L (101-111); CHOL/HDL RATIO 5.8 (<4.4); CHOLESTEROL 250 mg/dL; CREATININE 0.7 mg/dL (0.4-1.0); GFR - MDRD 83 (>89); GLUCOSE 113 mg/dL (70-100); HDL CHOLESTEROL 43 mg/dL; LDL CHOLESTEROL,CALCULATED 178 mg/dL; LDL/HDL RATIO 4.1 (<4.4); SODIUM 138 mmol/L (135-145); TOTAL PROTEIN 6.6 g/dL (6.7-8.2); VLDL CHOLESTEROL 29 mg/dL
== END 2019-11-18 08:47 | disposition home or self-care (01) ==
LOC: LAB 08:46
PROVIDERS: ATTEND Family Medicine
DX: K21.9 Gastro-esophageal reflux disease without esophagitis (principal); E78.5 Hyperlipidemia, unspecified; M15.9 Polyosteoarthritis, unspecified; R78.5 Finding of other psychotropic drug in blood; I10 Essential (primary) hypertension
CPT/HCPCS: 36415; 80053; 80061; 83721; 84443; 85025

== ENCOUNTER 2020-01-10 11:55 | Outpatient (CLI) | payer MEDICARE, OTHER ==
--- NOTE | 2020-01-12 20:50 | XRAY Report ---
Reason: SHOULDER PAIN, LEFTM SHOULDER CREPTIUS Procedure Date: 01/10/2020 Accession Number: [id number] / [id number] Procedure: XR - Shoulder 2 View LT CPT Code: Final Report FULL RESULT: EXAM: LEFT SHOULDER RADIOGRAPHY EXAM DATE: 01/10/2020 12:25 PM. CLINICAL HISTORY: Shoulder pain, left shoulder crepitus. COMPARISON: None. TECHNIQUE: 2 views. FINDINGS: Bones: Normal. No fracture or bone lesion. Joints: Humeral head appears normally located. No significant glenohumeral joint space narrowing. Possible mild subchondral sclerosis at the lower glenoid. Moderate osteophytes at the acromioclavicular joint. Soft tissues: Unremarkable. IMPRESSION: 1. Moderate degenerative change at the acromioclavicular joint. 2. Possible mild glenohumeral osteoarthritis. RADIA
== END 2020-01-10 11:56 | disposition home or self-care (01) ==
LOC: DI 11:55
PROVIDERS: ATTEND Family Medicine
DX: M19.012 Primary osteoarthritis, left shoulder (principal)

== ENCOUNTER 2020-01-23 08:00 | Outpatient (CLI) | payer MEDICARE, OTHER | END 2020-01-23 23:59 | disposition home or self-care (01) | LOC: LAB.R 08:00 | PROVIDERS: ATTEND Nurse Practitioner | DX: R50.9 Fever, unspecified (principal); R05 Cough | CPT/HCPCS: 81599; U0002 ==

== ENCOUNTER 2020-01-29 20:15 | Emergency (ER) | payer MEDICARE, OTHER ==
[2020-01-29 20:24] VITALS: BP 181/91
--- NOTE | 2020-01-29 21:24 | ED Physician Documentation ---
History of Present Illness - Stated complaint Stated Complaint: COUGH - Chief complaint Chief Complaint: Resp - History obtained from History obtained from: Patient (the patient is a 69 y/o f who has had a 1 week history of flu like symptoms. Patient states that she went to her primary care provider a few days ago and had testing sent for the covid19. She reports she was not examined by her physician but goldie received a phone call stating that she had tested positive for the covid 19, she presents tonnaomie becuase she wants to be evaluated, she relates a cough that is dry, denies headache, neck pain or rashes, reports she has asthma and uses an inhaler. denies any hx of mi, stroke or dvt.) Review of Systems Constitutional: reports: Fever, Myalgias Eyes: reports: Reviewed and negative Ears: reports: Reviewed and negative Nose: reports: Reviewed and negative Throat: reports: Reviewed and negative Cardiac: reports: Reviewed and negative Respiratory: reports: Cough GI: reports: Reviewed and negative : reports: Reviewed and negative Skin: reports: Reviewed and negative Musculoskeletal: reports: Reviewed and negative Neurologic: reports: Reviewed and negative Psychiatric: reports: Reviewed and negative Endocrine: reports: Reviewed and negative Immunocompromised: reports: Reviewed and negative PD PAST MEDICAL HISTORY - Past Medical History Cardiovascular: Hypertension, High cholesterol Respiratory: Asthma Neuro: Headaches GI: 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 : Kidney 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 Psych: Depression - Past Surgical History General: Cholecystectomy, Appendectomy, Colonoscopy, EGD Ortho: Knee replacement /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: Hysterectomy, Oophrectomy - Present Medications Home Medications: Ambulatory Orders Medication Instructions Recorded Confirmed Citalopram [CeleXA] 40 mg DAILY 01/29/20 01/29/20 [place]-3/Dha/Epa/Fish Oil [Fish Oil 1 tab BID 01/29/20 01/29/20 1,000 mg Softgel] Pantoprazole [Protonix] 1 tab BID 01/29/20 01/29/20 Potassium Gluconate 1 tab DAILY 01/29/20 01/29/20 Rosuvastatin Calcium 1 tab 01/29/20 Ubidecarenone [Co Q-10] 1 tab DAILY 01/29/20 01/29/20 - Allergies Allergies/Adverse Reactions: Allergies Allergy/AdvReac Type Severity Reaction Status Date / Time cephalexin [From Keflex] Allergy Unknown Verified 01/29/20 20:24 codeine Allergy Respiratory Verified 01/29/20 20:24 morphine AdvReac Emesis Verified 01/29/20 20:24 - Social History Does the pt smoke?: No Smoking Status: Never smoker Does the pt drink ETOH?: No PD ED PE NORMAL - Vitals Vital signs reviewed: Yes - General General: Alert and oriented X 3, No acute distress, Well developed/nourished - HEENT HEENT: Atraumatic, PERRL, Moist mucous membranes, Pharynx benign - Neck Neck: Supple, no meningeal sign, No JVD - Cardiac Cardiac: RRR, No murmur, Strong equal pulses - Respiratory Respiratory: No respiratory distress, Clear bilaterally - Abdomen Abdomen: Normal bowel sounds, Soft, Non tender, Non distended, No organomegaly - Back Back: No CVA TTP, No spinal TTP - Derm Derm: Normal color, Warm and dry, No rash - Extremities Extremities: No deformity, No tenderness to palpate, Normal ROM s pain, No edema - Neuro Neuro: Alert and oriented X 3 - Psych Psych: Normal mood, Normal affect Results - Vitals Vitals: Vital Signs - 24 hr 01/29/20 20:20 Temperature 98.8 C H Heart Rate 92 Respiratory 18 Rate Blood Pressure 181/91 H O2 Saturation 96 Oxygen O2 Source Room air PD MEDICAL DECISION MAKING - ED course Complexity details: re-evaluated patient, considered differential (patient states she has a confirmed positive test for covid19, she is well appearing on exam, no resp distress. afebrile. no hypoxia, 96% on room air.), d/w patient Departure - Departure Disposition: 01 Home, Self Care Clinical Impression: Viral syndrome Condition: Stable Instructions: COVID-19 [facility], COVID-19 [facility] Department Statement Follow-Up: Tonia Barba ARNP, SHUTTLE INSPECTOR-C [Primary Care Provider] - Tomorrow Comments: self quarantine for 14 days, take tylenol for fever. call your provider tomorrow to schedule follow up.
--- NOTE | 2020-01-29 22:15 | XRAY Report ---
Reason: cough sob Procedure Date: 01/29/2020 Accession Number: [id number] / [id number] Procedure: XR - Chest 2 View X-Ray CPT Code: 28429 Final Report FULL RESULT: EXAM: CHEST RADIOGRAPHY EXAM DATE: 01/29/2020 10:06 PM. CLINICAL HISTORY: Cough and shortness of breath. COMPARISON: CHEST 2 VIEW 09/05/2019 3:42 PM. TECHNIQUE: 2 views. FINDINGS: Lungs/Pleura: No focal opacities evident. No pleural effusion. No pneumothorax. Normal volumes. Mediastinum: Heart and mediastinal contours are unremarkable. Other: No compression fractures. IMPRESSION: Normal 2-view chest radiography. RADIA
== END 2020-01-29 22:44 | disposition home or self-care (01) ==
LOC: ED 20:15
DX: B34.9 Viral infection, unspecified (principal); I10 Essential (primary) hypertension
CPT/HCPCS: 71046; 99282; 99283

== ENCOUNTER 2020-04-02 12:38 | Outpatient (CLI) | payer MEDICARE, OTHER ==
[2020-04-02 14:33] LABS: RHEUMATOID FACTOR NEGATIVE (Negative)
[2020-04-04 14:19] LABS: ANA SCREEN NEGATIVE (NEGATIVE)
== END 2020-04-02 12:39 | disposition home or self-care (01) ==
LOC: LAB 12:38
PROVIDERS: ATTEND Orthopaedic Surgery
DX: M25.551 Pain in right hip (principal); M54.16 Radiculopathy, lumbar region
CPT/HCPCS: 36415; 85651; 86038; 86140; 86430

== ENCOUNTER 2020-08-21 09:20 | Outpatient (CLI) | payer MEDICARE, OTHER ==
--- NOTE | 2020-08-24 16:19 | Mammography Report ---
BILATERAL DIGITAL SCREENING MAMMOGRAM 3D/2D: 08/21/2020 CLINICAL: Routine screening. Comparison is made to exams dated: 06/20/2019 mammogram, 06/19/2018 mammogram, and 05/04/2017 mammogram - [facility]. There are scattered fibroglandular elements in both breasts. There are benign calcifications in both breasts. No significant masses, calcifications, or other findings are seen in either breast. There has been no significant interval change. IMPRESSION: BENIGN There is no mammographic evidence of malignancy. A 1 year screening mammogram is recommended. This exam was interpreted at Station ID: [id number]. NOTE: For mammograms, a report in lay terms will be sent to the patient. Approximately 15% of breast malignancies will not be visualized mammographically. In the management of a palpable breast mass, a negative mammogram must not discourage biopsy of a clinically suspicious lesion. Electronically Signed By: Kajal [email or web address]:08/21/2020 17:50:37 ACR BI-RADS Category 2: Benign Finding(s) 3342F PARENCHYMAL PATTERN: (A) - The breast(s) demonstrate(s) scattered fibroglandular densities. BI-RADS CATEGORY: (2) - 2 RECOMMENDATION: (ANNUAL) - Recommend routine annual screening mammography. [id number] 1 year screening LATERALITY: (B)
== END 2020-08-21 09:21 | disposition home or self-care (01) ==
LOC: DI 09:20
DX: Z12.31 Encounter for screening mammogram for malignant neoplasm of breast (principal)
CPT/HCPCS: 77063; 77067

== ENCOUNTER 2020-10-15 08:18 | Outpatient (CLI) | payer MEDICARE, OTHER ==
[2020-10-15 08:32] LABS: BASOPHILS # (AUTO) 0.1 10^3/uL (0.0-0.1); EOSINOPHILS # (AUTO) 0.3 10^3/uL (0.0-0.7); EOSINOPHILS % (AUTO) 3.8 %; LYMPHOCYTES # (AUTO) 1.4 10^3/uL (1.5-3.5); LYMPHOCYTES % (AUTO) 20.1 %; MEAN CORPUSCULAR HEMOGLOBIN 31.3 pg (27.0-31.0); MEAN CORPUSCULAR HGB CONC 34.1 g/dL (32.0-36.0); MEAN CORPUSCULAR VOLUME 91.7 fL (81.0-99.0); MEAN PLATELET VOLUME 8.7 fL (7.9-10.8); MONOCYTES # (AUTO) 0.5 10^3/uL (0.0-1.0); MONOCYTES % (AUTO) 7.3 %; NEUTROPHILS # (AUTO) 4.6 10^3/uL (1.5-6.6); NEUTROPHILS % (AUTO) 67.5 %; PLT - PLATELET COUNT 235 10^3/uL (130-450); RED BLOOD COUNT 4.48 10^6/uL (4.20-5.40); RED CELL DISTRIBUTION WIDTH 11.9 % (12.0-15.0); WHITE BLOOD COUNT 6.8 x10^3/uL (4.8-10.8)
[2020-10-15 08:59] LABS: ALBUMIN 4.2 g/dL (3.2-5.5); ALBUMIN/GLOBULIN RATIO 1.5 (1.0-2.2); ALKALINE PHOSPHATASE 63 IU/L (42-121); ALT ALANINE AMINOTRANSFERASE 44 IU/L (10-60); AST ASPARTATE AMINOTRANSFERASE 28 IU/L (10-42); BILIRUBIN,TOTAL 0.8 mg/dL (0.2-1.0); BUN - BLOOD UREA NITROGEN 10 mg/dL (6-20); CALCIUM 9.4 mg/dL (8.5-10.3); CARBON DIOXIDE - CO2 27 mmol/L (21-32); CHLORIDE 98 mmol/L (101-111); CHOL/HDL RATIO 6.3 (<4.4); CHOLESTEROL 265 mg/dL; CREATININE 0.8 mg/dL (0.4-1.0); GLUCOSE 109 mg/dL (70-100); HDL CHOLESTEROL 42 mg/dL; LDL CHOLESTEROL,CALCULATED 182 mg/dL; LDL/HDL RATIO 4.3 (<4.4); SODIUM 141 mmol/L (135-145); VLDL CHOLESTEROL 41 mg/dL
== END 2020-10-15 08:19 | disposition home or self-care (01) ==
LOC: LAB 08:18
PROVIDERS: ATTEND Family Medicine
DX: E78.5 Hyperlipidemia, unspecified (principal); R53.83 Other fatigue
CPT/HCPCS: 36415; 80053; 80061; 83721; 84443; 85025

== ENCOUNTER 2021-02-11 15:17 | Outpatient (CLI) | payer MEDICARE, OTHER ==
[2021-02-11 15:47] LABS: BILIRUBIN,URINE NEGATIVE (NEGATIVE); GLUCOSE, URINE (UA) NEGATIVE (NEGATIVE); KETONES,URINE (UA) TRACE mg/dL (NEGATIVE); LEUKOCYTE ESTERASE, URINE NEGATIVE (NEGATIVE); NITRITE,URINE POSITIVE (NEGATIVE); OCCULT BLOOD,URINE SMALL (NEGATIVE); PROTEIN,URINE TRACE mg/dL (NEGATIVE); UROBILINOGEN,URINE 0.2 (NORMAL) E.U./dL (NORMAL)
[2021-02-11 15:48] LABS: CLARITY,URINE CLEAR (CLEAR)
== END 2021-02-11 15:18 | disposition home or self-care (01) ==
LOC: LAB 15:17
PROVIDERS: ATTEND Specialist
DX: N39.0 Urinary tract infection, site not specified (principal)
CPT/HCPCS: 81003; 87077; 87086; 87181

== ENCOUNTER 2021-04-17 09:08 | Emergency (ER) | payer MEDICARE, OTHER ==
--- OUTSIDE RECORDS SUMMARY | 2021-04-17 09:11 | EXTERNAL MEDICAL SUMMARY RPT | Continuity of Care Document ---
:1950 Demographics Phone Unavailable Preferred Language Marshallese Marital Status Unknown Worship Affiliation Unknown Race Unknown Ethnic Group Unknown Author Organization [facility] Address [address] [phone] Phone Care Team Providers Name Role Phone Demmler Unavailable Unavailable Allergies Encounters Medications Problems date description facility [id number] Dysuria [facility] Procedures date description facility [id number] General Physician [facility] [id number] Finding [facility] [id number] Diagnosis [facility] Results
[2021-04-17 09:15] VITALS: BP 141/79
[2021-04-17] MEDS ORDERED: BACITRACIN ZINC OINT 1 PACKET TOP STA (09:18)
[2021-04-17] MEDS ORDERED: KETOROLAC 30 MG/ML VIAL IM STA (09:30)
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
--- OUTSIDE RECORDS SUMMARY | 2021-04-17 09:41 | EXTERNAL MEDICAL SUMMARY RPT | Continuity of Care Document ---
:1950 Demographics Phone Unavailable Preferred Language Iraqi Marital Status Unknown Pentecostal Affiliation Unknown Race Unknown Ethnic Group Unknown Author Organization [facility] Address [address] [phone] Phone Care Team Providers Name Role Phone Demmler Unavailable Unavailable Allergies Encounters Medications Problems date description facility [id number] Dysuria [facility] Procedures date description facility [id number] General Physician [facility] [id number] Finding [facility] [id number] Diagnosis [facility] Results
== END 2021-04-17 09:51 | disposition home or self-care (01) ==
LOC: ED 09:08
DX: T22.212A Burn of second degree of left forearm, initial encounter (principal); X19.XXXA Contact with other heat and hot substances, initial encounter; Y93.G3 Activity, cooking and baking; I10 Essential (primary) hypertension
CPT/HCPCS: 96372; 99283; A9270

== ENCOUNTER 2021-08-19 09:53 | Outpatient (CLI) | payer MEDICARE, OTHER ==
--- NOTE | 2021-08-19 15:22 | DEXA Report ---
PROCEDURE: Dexa Spine and/or Hip INDICATIONS: POST MENOPAUSAL, OSTEOPOROSIS SCREENING TECHNIQUE: Dual energy x-ray absorptiometry (DXA) was performed on a [facility]. Regions measur ed are the AP Spine, femoral neck, and if needed forearm. COMPARISON: None. FINDINGS: Lumbar Spine: Bone Mineral Density 1.564 g/cm/cm,T score 3.2, normal Left Hip: Bone Mineral Density 0.928 g/cm/cm,T score -0.6, normal Left Femoral Neck: Bone Mineral Density 0.87 g/cm/cm, T score -1.2, osteopenia (T score greater or equal to -1.0: NORMAL) (T score from -1.1 to -2.4: OSTEOPENIA) (T score less than or equal to -2.5 to: OSTEOPOROSIS) Impression: Bone mineral density consistent with osteopenia Patients with diagnosis of osteoporosis or osteopenia should have regular bone mineral density assess ment. For those eligible for Medicare, routine testing is allowed once every 2 years. Testing frequ ency can be increased for patients who have rapidly progressing disease or for those who are receivin g medical therapy to restore bone mass. Reviewed by: Mario Fuchs on 08/19/2021 3:21 PM PDT Approved by: Mario Fuchs on 08/19/2021 3:21 PM PDT Station ID: [id number]
== END 2021-08-19 09:54 | disposition home or self-care (01) ==
LOC: DI 09:53
PROVIDERS: ATTEND Family Medicine
DX: Z13.820 Encounter for screening for osteoporosis (principal); Z78.0 Asymptomatic menopausal state; M85.88 Other specified disorders of bone density and structure, other site

== ENCOUNTER 2021-08-26 09:15 | Outpatient (CLI) | payer MEDICARE, OTHER ==
--- NOTE | 2021-08-27 09:29 | Mammography Report ---
BILATERAL DIGITAL SCREENING MAMMOGRAM 3D/2D: 08/26/2021 CLINICAL: Routine screening. Comparison is made to exams dated: 08/21/2020 mammogram - [facility], 06/20/2019 mamm ogram, 06/19/2018 mammogram, 05/04/2017 mammogram, 04/12/2016 mammogram, and 04/07/2015 mammogram - [facility]. The tissue of both breasts is heterogeneously dense. This may lower the sensitivity of ma mmography. There are benign calcifications in both breasts. No significant masses, calcifications, or other findings are seen in either breast. There has been no significant interval change. IMPRESSION: BENIGN There is no mammographic evidence of malignancy. A 1 year screening mammogram is recommended. This exam was interpreted at Station ID: [id number]. NOTE: For mammograms, a report in lay terms will be sent to the patient. Approximately 15% of breast malignancies will not be visualized mammographically. In the management of a palpable breast mass, a negative mammogram must not discourage biopsy of a clinically suspicious lesion. Electronically Signed By: Camron Bruno M.D. ddp/penrad:08/26/2021 10:57:44 ACR BI-RADS Category 2: Benign Finding(s) 3342F PARENCHYMAL PATTERN: (D) - The breast(s) demonstrate(s) heterogeneously dense fibroglandular parenchy ma. BI-RADS CATEGORY: (2) - 2 RECOMMENDATION: (ANNUAL) - Recommend routine annual screening mammography. [id number] 1 year screening LATERALITY: (B)
== END 2021-08-26 09:16 | disposition home or self-care (01) ==
LOC: DI 09:15
PROVIDERS: ATTEND Family Medicine
DX: Z12.31 Encounter for screening mammogram for malignant neoplasm of breast (principal)

== ENCOUNTER 2021-09-12 14:47 | Emergency (ER) | payer MEDICARE, OTHER ==
[2021-09-12 15:03] LABS: BASOPHILS # (AUTO) 0.1 10^3/uL (0.0-0.1); EOSINOPHILS # (AUTO) 0.2 10^3/uL (0.0-0.7); EOSINOPHILS % (AUTO) 2.3 %; HCT - HEMATOCRIT 42.1 % (37.0-47.0); HGB - HEMOGLOBIN 14.4 g/dL (12.0-16.0); LYMPHOCYTES # (AUTO) 2.2 10^3/uL (1.5-3.5); MEAN CORPUSCULAR HEMOGLOBIN 32.2 pg (27.0-31.0); MEAN CORPUSCULAR HGB CONC 34.2 g/dL (32.0-36.0); MEAN CORPUSCULAR VOLUME 94.2 fL (81.0-99.0); MEAN PLATELET VOLUME 8.3 fL (7.9-10.8); MONOCYTES # (AUTO) 0.8 10^3/uL (0.0-1.0); MONOCYTES % (AUTO) 7.9 %; NEUTROPHILS # (AUTO) 6.7 10^3/uL (1.5-6.6); NEUTROPHILS % (AUTO) 66.3 %; PLT - PLATELET COUNT 248 10^3/uL (130-450); RED BLOOD COUNT 4.47 10^6/uL (4.20-5.40); RED CELL DISTRIBUTION WIDTH 11.9 % (12.0-15.0); WHITE BLOOD COUNT 10.1 x10^3/uL (4.8-10.8)
--- NOTE | 2021-09-12 15:11 | ED Physician Documentation ---
History of Present Illness - Stated complaint Stated Complaint: CHEST PAIN - Chief complaint Chief Complaint: Cardiac - Additonal information Additional information: 71-year-old female presents emergency department for evaluation of chest di scomfort. She reports that yesterday she was feeling some chest discomfort which she attributed to gas. However just about 1 hour prior to arrival she began experiencing a sharp stabbing pain in her left chest that radiates to the left arm and neck. She endorses some nausea but no vomiting. She denies any previous history of coronary artery disease. However she does have a strong family history of coronary artery disease. Patient carries a history of hypertension. She is not a smoker. She has no focal neuro deficits or headache. She denies pleuritic chest pain. No recent travel or amy geries/immobilization. Meds: Citalopram, Advair, Xopenex, bupropion, amlodipine Review of Systems Constitutional: denies: Fever, Chills Eyes: reports: Reviewed and negative Ears: reports: Reviewed and negative Nose: reports: Reviewed and negative Throat: reports: Reviewed and negative Cardiac: reports: Chest pain / pressure. 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 : Kidney stones Psych: Depression - Past Surgical History General: Cholecystectomy, Appendectomy, Colonoscopy, EGD Ortho: Knee replacement /BULB TESTER: Hysterectomy, Oophrectomy - Present Medications Home Medications: Ambulatory Orders Medication Instructions Recorded Confirmed Citalopram [CeleXA] 40 mg DAILY 01/29/20 01/29/20 [place]-3/Dha/Epa/Fish Oil [Fish Oil 1 tab BID 01/29/20 01/29/20 1,000 mg Softgel] Pantoprazole [Protonix] 1 tab BID 01/29/20 01/29/20 Potassium Gluconate 1 tab DAILY 01/29/20 01/29/20 Rosuvastatin Calcium 1 tab 01/29/20 Ubidecarenone [Co Q-10] 1 tab DAILY 01/29/20 01/29/20 Ketorolac [Toradol] 10 mg PO Q6H PRN #30 tablet 04/17/21 - Allergies Allergies/Adverse Reactions: Allergies Allergy/AdvReac Type Severity Reaction Status Date / Time cephalexin [From Keflex] Allergy Unknown Verified 09/12/21 15:05 codeine Allergy Respiratory Verified 09/12/21 15:05 morphine AdvReac Emesis Verified 09/12/21 15:05 - Social History Does the pt smoke?: No Smoking Status: Never smoker Does the pt drink ETOH?: No PD ED PE NORMAL - General General: Alert and oriented X 3, No acute distress - HEENT HEENT: PERRL, Moist mucous membranes, Pharynx benign - Neck Neck: Supple, no meningeal sign, Thyroid normal - Cardiac Cardiac: RRR, No murmur, No gallop - Respiratory Respiratory: No respiratory distress, Clear bilaterally - Abdomen Abdomen: Normal bowel sounds, Soft, Non tender, Non distended - Back Back: No CVA TTP, No spinal TTP - Derm Derm: Normal color - Extremities Extremities: No deformity, No edema Results - Vitals Vitals: Vital Signs - 24 hr 09/12/21 09/12/21 09/12/21 15:00 15:06 15:26 Temperature 37.4 C Heart Rate 88 89 82 Respiratory 16 20 13 Rate Blood Pressure 140/80 H 160/96 H 160/96 H O2 Saturation 96 96 95 09/12/21 16:45 Temperature 36.7 C Heart Rate 76 Respiratory 17 Rate Blood Pressure 150/89 H O2 Saturation 97 Oxygen O2 Source Room air - EKG (time done) 1449 Rate: Rate (enter#) (88) Rhythm: NSR [place]: Normal Intervals: Normal SD QRS: Normal Ischemia: Normal ST segments Compare to prior EKG: Old EKG unavailable Computer interpretation: Agree with computer - Labs Labs: Laboratory Tests 09/12/21 09/12/21 09/12/21 14:55 14:55 14:55 WBC 10.1 RBC 4.47 Hgb 14.4 Hct 42.1 MCV 94.2 MCH 32.2 H MCHC 34.2 RDW 11.9 L Plt Count 248 MPV 8.3 Neut # (Auto) 6.7 H Lymph # (Auto) 2.2 Banks # (Auto) 0.8 Eos # (Auto) 0.2 Baso # (Auto) 0.1 Absolute Nucleated RBC 0.00 Nucleated RBC % 0.0 Sodium 135 Potassium 3.8 Chloride 98 L Carbon Dioxide 29 Anion Gap 8.0 BUN 19 Creatinine 1.0 Estimated GFR (MDRD) 55 L Glucose 92 Calcium 9.8 Total Bilirubin 0.7 AST 21 ALT 32 Alkaline Phosphatase 53 Troponin I High Sens 4.3 B-Natriuretic Peptide Total Protein 7.3 Albumin 4.5 Globulin 2.8 Albumin/Globulin Ratio 1.6 Lipase 39 09/12/21 09/12/21 14:55 16:43 WBC RBC Hgb Hct MCV MCH MCHC RDW Plt Count MPV Neut # (Auto) Lymph # (Auto) Banks # (Auto) Eos # (Auto) Baso # (Auto) Absolute Nucleated RBC Nucleated RBC % Sodium Potassium Chloride Carbon Dioxide Anion Gap BUN Creatinine Estimated GFR (MDRD) Glucose Calcium Total Bilirubin AST ALT Alkaline Phosphatase Troponin I High Sens 4.1 B-Natriuretic Peptide 20 Total Protein Albumin Globulin Albumin/Globulin Ratio Lipase - Rads (name of study) CXR Radiology: Final report received (no acute cardiopulmonary process) PD MEDICAL DECISION MAKING - ED course Complexity details: reviewed results, re-evaluated patient, d/w patient ED course: 71-year-old female who carries a history of hypertension as well as a strong family history of coronary artery disease presents emergency department for evaluation of acute chest pain with radiation to the left arm and neck that began at approximately 1 PM. There was some nausea but no vomiting. Screening EKG is nonischemic. Initial troponin was negative. Given that she presented right after the chest pain began we did do a second Trope which was about 4 hours after the initial pain event and that was also negative. she was free of pain at the time she arrived in the ED Her heart score is 4 putting her at moderate risk for major adverse cardiac event. I did discuss with the patient that she could be admitted on an observation status to the hospital for further evaluation but she declines at this time. She reports that she will follow up with Dr. Hawthorne this week and request an outpatient echocardiogram and stress test. She is to continue taking her amlodipine and daily aspirin. Emergent worrisome return precautions were discussed. Departure - Departure Disposition: 01 Home, Self Care Clinical Impression: Chest pain Qualifiers: Chest pain type: unspecified Qualified Code(s): R07.9 - Chest pain, unspecified Condition: Stable Record reviewed to determine appropriate education?: Yes Instructions: ED Chest Pain Atypical Unkn Cause Follow-Up: Jeffrey Hawthorne DO [Primary Care Provider] - Comments: Elen you are seen in the emergency department today for evaluation of chest pain. Your screening EKG was essentially unremarkable and normal. Your screening labs including 2 troponins were negative. However given your history of hypertension, your age as well as your strong family history for coronary artery disease it is advised that you follow-up promptly with your primary care provider and request an outpatient stress test and echocardiogram. You were offered the possibility of observation admission to the hospital today. If any point your chest pain worsens, you develop sudden severe shortness of breath or have any fainting episodes then you are to return immediately to the ER for further evaluation. Continue to take the amlodipine for your high blood pressure as well as the aspirin already prescribed.
[2021-09-12 15:21] LABS: ALBUMIN 4.5 g/dL (3.2-5.5); ALBUMIN/GLOBULIN RATIO 1.6 (1.0-2.2); BILIRUBIN,TOTAL 0.7 mg/dL (0.2-1.0); CALCIUM 9.8 mg/dL (8.5-10.3); POTASSIUM 3.8 mmol/L (3.5-5.0); TOTAL PROTEIN 7.3 g/dL (6.7-8.2)
--- NOTE | 2021-09-12 15:29 | XRAY Report ---
PROCEDURE: Chest 1 View X-Ray INDICATIONS: Chest Pain TECHNIQUE: One view of the chest was acquired. COMPARISON: None available at time of dictation. FINDINGS: Overlying EKG wires and bra. Surgical changes and devices: None. Lungs and pleura: No pleural effusions or pneumothorax. Lungs are clear. Mediastinum: Mediastinal contours appear normal. Heart size is normal. Bones and chest wall: No suspicious bony lesions. Overlying soft tissues appear unremarkable. IMPRESSION: No evidence of an acute cardiopulmonary abnormality. Reviewed by: Chris Julian DO on 09/12/2021 2:28 PM JAYDA Approved by: Chris Julian DO on 09/12/2021 2:28 PM AKDT Station ID: [id number]
[2021-09-12 17:45] VITALS: BP 134/91
== END 2021-09-12 17:46 | disposition home or self-care (01) ==
LOC: ED 14:47
DX: R07.9 Chest pain, unspecified (principal)
CPT/HCPCS: 36415; 80053; 83690; 83880; 84484; 85025; 93005; 99283; 99284

== ENCOUNTER 2022-07-17 13:13 | Emergency (ER) | payer MEDICARE, OTHER ==
--- OUTSIDE RECORDS SUMMARY | 2022-07-17 13:32 | EXTERNAL MEDICAL SUMMARY RPT | Continuity of Care Document ---
:1950 Author Organization [facility] Address [address] [place] [address] Phone Allergies and Intolerances date description facility type (no date) Mild [facility] (unknown) Encounters No information. Functional Status No information. Immunizations No information. Medications date description facility Fluconazole 150 MG Oral Tablet [facility] Problems No information. Procedures date description facility + Diagnosis [facility] + Finding [facility] + General Physician [facility] Results/Labs test date author facility value unit interpret ation Result panel 1 (unknown) (no (unknown) (unknown) (no value) (units (unk nown) date) unknown) (unknown) (no (unknown) (unknown) ABDOMINAL CRAMPING, LOC ( units (unknown) date) unknown) (unknown) (no (unknown) (unknown) [place] [address] (unit s (unknown) date) unknown) (unknown) (no (unknown) (unknown) Cancer (units (unkno wn) date) unknown) (unknown) (no (unknown) (unknown) Diabetes mellitus (units (unknown) date) unknown) (unknown) (no (unknown) (unknown) Draft (units (unkno wn) date) unknown) (unknown) (no (unknown) (unknown) HIVES (units (unkno wn) date) unknown) (unknown) (no (unknown) (unknown) [facility] (units (unknown) date) unknown) (unknown) (no (unknown) (unknown) MUSCLE ACHES (units (u nknown) date) unknown) (unknown) (no (unknown) (unknown) Myalgias (units (unkno wn) date) unknown) (unknown) (no (unknown) (unknown) N+V (units (unkno wn) date) unknown) (unknown) (no (unknown) (unknown) Urology Office Visit (uni ts (unknown) date) unknown) (unknown) (no (unknown) (unknown) (no value) (units (unk nown) date) unknown) (unknown) (no (unknown) (unknown) 05/05/22 (units (unkno wn) date) unknown) (unknown) (no (unknown) (unknown) 71 Y/O F presents to (uni ts (unknown) date) clinic for post operative unkn own) appointment/post void residual (unknown) (no (unknown) (unknown) Adverse Reaction (Unknown, (units (unknown) date) Verified 03/18/22 06:48) unkno wn) (unknown) (no (unknown) (unknown) Age/Sex: 71 / F Date of (units (unknown) date) Service: unknown) (unknown) (no (unknown) (unknown) Allergies (units (unkn own) date) unknown) (unknown) (no (unknown) (unknown) Anxiety (units (unkno wn) date) unknown) (unknown) (no (unknown) (unknown) Arthritis (units (unkn own) date) unknown) (unknown) (no (unknown) (unknown) Asthma (units (unkno wn) date) unknown) (unknown) (no (unknown) (unknown) Attending Dr: Jericho (uni ts (unknown) date) Renetta HAINES unknown) (unknown) (no (unknown) (unknown) Barretts esophagus (units (unknown) date) unknown) (unknown) (no (unknown) (unknown) Bladder calculi (units (unknown) date) unknown) (unknown) (no (unknown) (unknown) Brother Hypertension (u nits (unknown) date) unknown) (unknown) (no (unknown) (unknown) Cataract (lens) fragments (units (unknown) date) in eye following cataract unkn own) surgery, bilateral (unknown) (no (unknown) (unknown) Cervical cancer (units (unknown) date) unknown) (unknown) (no (unknown) (unknown) Colon polyps (units (u nknown) date) unknown) (unknown) (no (unknown) (unknown) : 1950 (units (unknown) date) Acct:[id number] unknown) (unknown) (no (unknown) (unknown) Depression (units (unk nown) date) unknown) (unknown) (no (unknown) (unknown) Dept at . (u nits (unknown) date) unknown) (unknown) (no (unknown) (unknown) Documented By: (units (unknown) date) Jericho Jackson MD unknown) 05/05/22 0912 (unknown) (no (unknown) (unknown) Esophageal spasm (units (unknown) date) unknown) (unknown) (no (unknown) (unknown) Family History (Reviewed (units (unknown) date) 03/15/22 @ 15:26 by Jericho knoxk nown) MD Renetta) (unknown) (no (unknown) (unknown) Family/Other Cancer (un its (unknown) date) unknown) (unknown) (no (unknown) (unknown) Father Congestive heart (units (unknown) date) failure unknown) (unknown) (no (unknown) (unknown) Foreign body in bladder ( units (unknown) date) and urethra unknown) (unknown) (no (unknown) (unknown) Grandfather Congestive (units (unknown) date) heart failure unknown) (unknown) (no (unknown) (unknown) Grandmother Congestive (units (unknown) date) heart failure unknown) (unknown) (no (unknown) (unknown) History of bladder surgery (units (unknown) date) (-2007) unknown) (unknown) (no (unknown) (unknown) History of bladder (units (unknown) date) suspension procedure unknown) (unknown) (no (unknown) (unknown) History of cholecystectomy (units (unknown) date) unknown) (unknown) (no (unknown) (unknown) History of colonoscopy (u nits (unknown) date) unknown) (unknown) (no (unknown) (unknown) History of (units (unk nown) date) esophagogastroduodenoscopy unk nown) (EGD) (unknown) (no (unknown) (unknown) History of migraine (unit s (unknown) date) unknown) (unknown) (no (unknown) (unknown) History of recurrent UTI (units (unknown) date) (urinary tract infection) unkn own) (unknown) (no (unknown) (unknown) History of total abdominal (units (unknown) date) hysterectomy and bilateral unk nown) salpingo-oophorectomy (unknown) (no (unknown) (unknown) History of total knee (un its (unknown) date) arthroplasty unknown) (unknown) (no (unknown) (unknown) Hx of cystoscopy (units (unknown) date) (11/23/21) unknown) (unknown) (no (unknown) (unknown) Hyperlipidemia (units (unknown) date) unknown) (unknown) (no (unknown) (unknown) Hypertension (units (u nknown) date) unknown) (unknown) (no (unknown) (unknown) Intake (units (unkno wn) date) unknown) (unknown) (no (unknown) (unknown) Intake Note: (units (u nknown) date) unknown) (unknown) (no (unknown) (unknown) Intake performed by: (uni ts (unknown) date) Angy Kim unknown) (unknown) (no (unknown) (unknown) Intake- Clincial Staff (u nits (unknown) date) unknown) (unknown) (no (unknown) (unknown) Last Menstural Cycle + (u nits (unknown) date) Details unknown) (unknown) (no (unknown) (unknown) Loc: [facility] (units (unkno wn) date) unknown) (unknown) (no (unknown) (unknown) Lower urinary tract (unit s (unknown) date) symptoms (LUTS) unknown) (unknown) (no (unknown) (unknown) Malaise and fatigue (unit s (unknown) date) unknown) (unknown) (no (unknown) (unknown) Medical History (Updated (units (unknown) date) 03/15/22 @ 15:28 by Jericho Jackson MD) (unknown) (no (unknown) (unknown) Other Menstrual Period: ( units (unknown) date) Postmenopausal unknown) (unknown) (no (unknown) (unknown) PFSH (units (unkno wn) date) unknown) (unknown) (no (unknown) (unknown) Palpitations (units (u nknown) date) unknown) (unknown) (no (unknown) (unknown) Patient: White (units (unknown) date) Elen Sargent unknown) (unknown) (no (unknown) (unknown) Patulous eustachian tube (units (unknown) date) of left ear unknown) (unknown) (no (unknown) (unknown) Pelvic relaxation (units (unknown) date) unknown) (unknown) (no (unknown) (unknown) Postmenopausal (units (unknown) date) unknown) (unknown) (no (unknown) (unknown) Postmenopausal atrophic ( units (unknown) date) vaginitis unknown) (unknown) (no (unknown) (unknown) R#: [id number] (units (unknown) date) unknown) (unknown) (no (unknown) (unknown) Reason For Visit (units (unknown) date) unknown) (unknown) (no (unknown) (unknown) S/P right knee arthroscopy (units (unknown) date) unknown) (unknown) (no (unknown) (unknown) Signed By: (units (unk nown) date) unknown) (unknown) (no (unknown) (unknown) Sister Hypertension (un its (unknown) date) unknown) (unknown) (no (unknown) (unknown) Smoking Status: Never (u nits (unknown) date) smoker unknown) (unknown) (no (unknown) (unknown) Smoking Status: Never (un its (unknown) date) smoker unknown) (unknown) (no (unknown) (unknown) Social History (Reviewed (units (unknown) date) 03/15/22 @ 15:26 by Jericho boston) MD Renetta) (unknown) (no (unknown) (unknown) Fspxzht-EOR-RhU Reductase (units (unknown) date) Inhibitor [Cfeyyqy-Eys-Lew abiliok nown) Reductase Inhibitor] (unknown) (no (unknown) (unknown) Status post surgery (unit s (unknown) date) (10/08/18) unknown) (unknown) (no (unknown) (unknown) Surgical History (Reviewed (units (unknown) date) 03/15/22 @ 15:26 by Jericho boston) MD Renetta) (unknown) (no (unknown) (unknown) This note may have been ( units (unknown) date) all or partially generated jelani boston) using voice recognition (unknown) (no (unknown) (unknown) Tobacco Status (units (unknown) date) unknown) (unknown) (no (unknown) (unknown) Uterine cancer (units (unknown) date) unknown) (unknown) (no (unknown) (unknown) Vaginal pain (units (u nknown) date) unknown) (unknown) (no (unknown) (unknown) Visit Reasons: post-op (u nits (unknown) date) appt/PVR + review pathology un known) (unknown) (no (unknown) (unknown) alcohol intake: current (units (unknown) date) unknown) (unknown) (no (unknown) (unknown) and pathology review (uni ts (unknown) date) unknown) (unknown) (no (unknown) (unknown) atorvastatin Adverse (uni ts (unknown) date) Reaction (Intermediate, unknow n) Verified 03/18/22 06:48) (unknown) (no (unknown) (unknown) cephalexin Adverse (units (unknown) date) Reaction (Mild, Verified unkno wn) 03/18/22 06:48) (unknown) (no (unknown) (unknown) codeine Adverse Reaction (units (unknown) date) (Intermediate, Verified unknow n) 03/18/22 06:48) (unknown) (no (unknown) (unknown) have occurred. If there (units (unknown) date) are any questions, please unkn own) contact the Medical Records (unknown) (no (unknown) (unknown) household members: spouse (units (unknown) date) unknown) (unknown) (no (unknown) (unknown) may occur. Occasional (u nits (unknown) date) wrong-word or 'sound-alike' un known) substitutions may have (unknown) (no (unknown) (unknown) morphine Adverse Reaction (units (unknown) date) (Severe, Verified 03/18/22 unk nown) 06:48) (unknown) (no (unknown) (unknown) occurred due to the (unit s (unknown) date) inherent limitations of unknow n) voice recognition software. Please (unknown) (no (unknown) (unknown) read the note carefully ( units (unknown) date) and recognize, using unknown) context, where these substitutions (unknown) (no (unknown) (unknown) software. 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 Result panel 2 (unknown) (no (unknown) (unknown) (no value) (units (unk nown) date) unknown) (unknown) (no (unknown) (unknown) Orders: (units (unkno wn) date) unknown) (unknown) (no (unknown) (unknown) ABDOMINAL CRAMPING, LOC ( units (unknown) date) unknown) (unknown) (no (unknown) (unknown) [place] [address] (unit s (unknown) date) unknown) (unknown) (no (unknown) (unknown) Cancer (units (unkno wn) date) unknown) (unknown) (no (unknown) (unknown) Diabetes mellitus (units (unknown) date) unknown) (unknown) (no (unknown) (unknown) Draft (units (unkno wn) date) unknown) (unknown) (no (unknown) (unknown) HIVES (units (unkno wn) date) unknown) (unknown) (no (unknown) (unknown) [facility] (units (unknown) date) unknown) (unknown) (no (unknown) (unknown) MUSCLE ACHES (units (u nknown) date) unknown) (unknown) (no (unknown) (unknown) Myalgias (units (unkno wn) date) unknown) (unknown) (no (unknown) (unknown) N+V (units (unkno wn) date) unknown) (unknown) (no (unknown) (unknown) Urology Office Visit (uni ts (unknown) date) unknown) (unknown) (no (unknown) (unknown) (no value) (units (unk nown) date) unknown) (unknown) (no (unknown) (unknown) 05/05/22 (units (unkno wn) date) unknown) (unknown) (no (unknown) (unknown) 05/05/22] (units (unkn own) date) unknown) (unknown) (no (unknown) (unknown) 71 Y/O F presents to (uni ts (unknown) date) clinic for post operative unkn own) appointment/post void residual (unknown) (no (unknown) (unknown) Adverse Reaction (Unknown, (units (unknown) date) Verified 05/05/22 09:14) unkno wn) (unknown) (no (unknown) (unknown) Age/Sex: 71 / F Date of (units (unknown) date) Service: unknown) (unknown) (no (unknown) (unknown) Allergies (units (unkn own) date) unknown) (unknown) (no (unknown) (unknown) Anxiety (units (unkno wn) date) unknown) (unknown) (no (unknown) (unknown) Arthritis (units (unkn own) date) unknown) (unknown) (no (unknown) (unknown) Assessment + Plan (units (unknown) date) unknown) (unknown) (no (unknown) (unknown) Asthma (units (unkno wn) date) unknown) (unknown) (no (unknown) (unknown) Attending Dr: Jericho (uni ts (unknown) date) Renetta HAINES unknown) (unknown) (no (unknown) (unknown) Barretts esophagus (units (unknown) date) unknown) (unknown) (no (unknown) (unknown) Billing- Post Void (units (unknown) date) Residual: Post Void unknown) Residual- [id number] (unknown) (no (unknown) (unknown) Bladder calculi (units (unknown) date) unknown) (unknown) (no (unknown) (unknown) Bladder volume: PVR= (uni ts (unknown) date) unknown) (unknown) (no (unknown) (unknown) Brother Hypertension (u nits (unknown) date) unknown) (unknown) (no (unknown) (unknown) C) 1 ea PO DAILY 11/02/21 (units (unknown) date) [History Confirmed unknown) 05/05/22] (unknown) (no (unknown) (unknown) Cataract (lens) fragments (units (unknown) date) in eye following cataract unkn own) surgery, bilateral (unknown) (no (unknown) (unknown) Cervical cancer (units (unknown) date) unknown) (unknown) (no (unknown) (unknown) Colon polyps (units (u nknown) date) unknown) (unknown) (no (unknown) (unknown) Complications: No (units (unknown) date) unknown) (unknown) (no (unknown) (unknown) Confirmed 05/05/22] (unit s (unknown) date) unknown) (unknown) (no (unknown) (unknown) Consent signed: No (units (unknown) date) unknown) (unknown) (no (unknown) (unknown) : 1950 (units (unknown) date) Acct:[id number] unknown) (unknown) (no (unknown) (unknown) Depression (units (unk nown) date) unknown) (unknown) (no (unknown) (unknown) Dept at . (u nits (unknown) date) unknown) (unknown) (no (unknown) (unknown) Diskus) 1 inh inhalation (units (unknown) date) BID 09/23/21 [History unknown) Confirmed 05/05/22] (unknown) (no (unknown) (unknown) Documented By: (units (unknown) date) Jericho Jackson MD unknown) 05/05/22 0912 (unknown) (no (unknown) (unknown) Esophageal spasm (units (unknown) date) unknown) (unknown) (no (unknown) (unknown) Family History (Reviewed (units (unknown) date) 03/15/22 @ 15:26 by Jericho knoxk nown) MD Renetta) (unknown) (no (unknown) (unknown) Family/Other Cancer (un its (unknown) date) unknown) (unknown) (no (unknown) (unknown) Father Congestive heart (units (unknown) date) failure unknown) (unknown) (no (unknown) (unknown) Foreign body in bladder ( units (unknown) date) and urethra unknown) (unknown) (no (unknown) (unknown) Grandfather Congestive (units (unknown) date) heart failure unknown) (unknown) (no (unknown) (unknown) Grandmother Congestive (units (unknown) date) heart failure unknown) (unknown) (no (unknown) (unknown) History of bladder surgery (units (unknown) date) (-2007) unknown) (unknown) (no (unknown) (unknown) History of bladder (units (unknown) date) suspension procedure unknown) (unknown) (no (unknown) (unknown) History of cholecystectomy (units (unknown) date) unknown) (unknown) (no (unknown) (unknown) History of colonoscopy (u nits (unknown) date) unknown) (unknown) (no (unknown) (unknown) History of (units (unk nown) date) esophagogastroduodenoscopy unk nown) (EGD) (unknown) (no (unknown) (unknown) History of migraine (unit s (unknown) date) unknown) (unknown) (no (unknown) (unknown) History of recurrent UTI (units (unknown) date) (urinary tract infection) unkn own) (unknown) (no (unknown) (unknown) History of total abdominal (units (unknown) date) hysterectomy and bilateral unk nown) salpingo-oophorectomy (unknown) (no (unknown) (unknown) History of total knee (un its (unknown) date) arthroplasty unknown) (unknown) (no (unknown) (unknown) Hx of cystoscopy (units (unknown) date) (11/23/21) unknown) (unknown) (no (unknown) (unknown) Hyperlipidemia (units (unknown) date) unknown) (unknown) (no (unknown) (unknown) Hypertension (units (u nknown) date) unknown) (unknown) (no (unknown) (unknown) Informed consent given: No (units (unknown) date) unknown) (unknown) (no (unknown) (unknown) Intake (units (unkno wn) date) unknown) (unknown) (no (unknown) (unknown) Intake Note: (units (u nknown) date) unknown) (unknown) (no (unknown) (unknown) Intake performed by: (uni ts (unknown) date) Angy Kim unknown) (unknown) (no (unknown) (unknown) Intake- Clincial Staff (u nits (unknown) date) unknown) (unknown) (no (unknown) (unknown) Last Menstural Cycle + (u nits (unknown) date) Details unknown) (unknown) (no (unknown) (unknown) Loc: [facility] (units (unkno wn) date) unknown) (unknown) (no (unknown) (unknown) Lower urinary tract (unit s (unknown) date) symptoms (LUTS) unknown) (unknown) (no (unknown) (unknown) Malaise and fatigue (unit s (unknown) date) unknown) (unknown) (no (unknown) (unknown) Medical History (Updated (units (unknown) date) 03/15/22 @ 15:28 by Jericho boston) MD Renetta) (unknown) (no (unknown) (unknown) Medications (units (un known) date) unknown) (unknown) (no (unknown) (unknown) Office Procedures (units (unknown) date) unknown) (unknown) (no (unknown) (unknown) Orders (units (unkno wn) date) unknown) (unknown) (no (unknown) (unknown) Other Menstrual Period: ( units (unknown) date) Postmenopausal unknown) (unknown) (no (unknown) (unknown) PFSH (units (unkno wn) date) unknown) (unknown) (no (unknown) (unknown) POC Urine Dip Today R30.0 (units (unknown) date) - Dysuria unknown) (unknown) (no (unknown) (unknown) Pain 10/02/18 [History (u nits (unknown) date) Confirmed 05/05/22] unknown) (unknown) (no (unknown) (unknown) Palpitations (units (u nknown) date) unknown) (unknown) (no (unknown) (unknown) Patient: White (units (unknown) date) Elen Sargent unknown) (unknown) (no (unknown) (unknown) Patulous eustachian tube (units (unknown) date) of left ear unknown) (unknown) (no (unknown) (unknown) Pelvic relaxation (units (unknown) date) unknown) (unknown) (no (unknown) (unknown) Photos taken: No (units (unknown) date) unknown) (unknown) (no (unknown) (unknown) Postmenopausal (units (unknown) date) unknown) (unknown) (no (unknown) (unknown) Postmenopausal atrophic ( units (unknown) date) vaginitis unknown) (unknown) (no (unknown) (unknown) Procedure performed by: ( units (unknown) date) Angy Kim unknown) (unknown) (no (unknown) (unknown) R#: [id number] (units (unknown) date) unknown) (unknown) (no (unknown) (unknown) Reason For Visit (units (unknown) date) unknown) (unknown) (no (unknown) (unknown) Residual: post void (unit s (unknown) date) unknown) (unknown) (no (unknown) (unknown) S/P right knee arthroscopy (units (unknown) date) unknown) (unknown) (no (unknown) (unknown) Signed By: (units (unk nown) date) unknown) (unknown) (no (unknown) (unknown) Sister Hypertension (un its (unknown) date) unknown) (unknown) (no (unknown) (unknown) Smoking Status: Never (u nits (unknown) date) smoker unknown) (unknown) (no (unknown) (unknown) Smoking Status: Never (un its (unknown) date) smoker unknown) (unknown) (no (unknown) (unknown) Social History (Reviewed (units (unknown) date) 03/15/22 @ 15:26 by Jericho boston) MD Renetta) (unknown) (no (unknown) (unknown) Qvmlzpa-AXP-KwU Reductase (units (unknown) date) Inhibitor [Rjkrdxq-Uce-Gkr jelani boston) Reductase Inhibitor] (unknown) (no (unknown) (unknown) Status post surgery (unit s (unknown) date) (10/08/18) unknown) (unknown) (no (unknown) (unknown) Surgical History (Reviewed (units (unknown) date) 03/15/22 @ 15:26 by Jericho boston) MD Renetta) (unknown) (no (unknown) (unknown) This note may have been ( units (unknown) date) all or partially generated jelani boston) using voice recognition (unknown) (no (unknown) (unknown) Tobacco Status (units (unknown) date) unknown) (unknown) (no (unknown) (unknown) Uterine cancer (units (unknown) date) unknown) (unknown) (no (unknown) (unknown) Vaginal pain (units (u nknown) date) unknown) (unknown) (no (unknown) (unknown) Visit Reasons: post-op (u nits (unknown) date) appt/PVR + review pathology un known) (unknown) (no (unknown) (unknown) [FISH OIL] 1 cap PO DAILY (units (unknown) date) ##0 07/13/11 [History unknown) Confirmed 05/05/22] (unknown) (no (unknown) (unknown) [History Confirmed (units (unknown) date) 05/05/22] unknown) (unknown) (no (unknown) (unknown) [Rx Confirmed 05/05/22] ( units (unknown) date) unknown) (unknown) (no (unknown) (unknown) [VITAMIN D] 1 cap PO DAILY (units (unknown) date) ##0 07/13/11 [History unknown) Confirmed 05/05/22] (unknown) (no (unknown) (unknown) alcohol intake: current (units (unknown) date) unknown) (unknown) (no (unknown) (unknown) amlodipine 2.5 mg tablet (units (unknown) date) 2.5 mg PO DAILY 09/14/21 unkno wn) [History Confirmed 05/05/22] (unknown) (no (unknown) (unknown) and pathology review (uni ts (unknown) date) unknown) (unknown) (no (unknown) (unknown) ascorbic acid 1,000 (unit s (unknown) date) gv-cprndltdsuou-dwvnbzjp unkno wn) powder effervescent pack (Emergen- (unknown) (no (unknown) (unknown) aspirin 81 mg (units ( unknown) date) tablet,delayed release 81 unkn own) mg PO DAILY 10/01/18 [History Confirmed (unknown) (no (unknown) (unknown) atorvastatin Adverse (uni ts (unknown) date) Reaction (Intermediate, unknow n) Verified 05/05/22 09:14) (unknown) (no (unknown) (unknown) bupropion HCl 75 mg tablet (units (unknown) date) 75 mg PO BID 09/14/21 unknown) [History Confirmed 05/05/22] (unknown) (no (unknown) (unknown) dpxwhoomwb-erjzkzddlmahs-f (units (unknown) date) affeine 50 mg-325 mg-40 mg unk nown) tablet 1 tab PO Q4H PRN (unknown) (no (unknown) (unknown) cephalexin Adverse (units (unknown) date) Reaction (Mild, Verified unkno wn) 05/05/22 09:14) (unknown) (no (unknown) (unknown) citalopram 40 mg tablet ( units (unknown) date) (Celexa) 40 mg PO DAILY unknow n) 07/18/18 [History Confirmed (unknown) (no (unknown) (unknown) codeine Adverse Reaction (units (unknown) date) (Intermediate, Verified unknow n) 05/05/22 09:14) (unknown) (no (unknown) (unknown) coenzyme Q10 50 mg capsule (units (unknown) date) 50 mg PO BID 11/02/21 unknown) [History Confirmed 05/05/22] (unknown) (no (unknown) (unknown) cranberry extract 650 mg (units (unknown) date) capsule 650 mg PO DAILY unknow n) 11/02/21 [History Confirmed (unknown) (no (unknown) (unknown) cyanocobalamin (vitamin ( units (unknown) date) B-12) 500 mcg tablet 1,500 unk nown) mcg PO DAILY 10/02/18 (unknown) (no (unknown) (unknown) d-mannose PO BID 11/02/21 (units (unknown) date) [History Confirmed unknown) 05/05/22] (unknown) (no (unknown) (unknown) estradiol 0.1 mg/24 hr (u nits (unknown) date) semiweekly transdermal unknown ) patch 1 mg topical 2XW 09/14/21 (unknown) (no (unknown) (unknown) fexofenadine 180 mg tablet (units (unknown) date) 180 mg PO DAILY 11/02/21 unkno wn) [History Confirmed 05/05/22] (unknown) (no (unknown) (unknown) flaxseed oil PO DAILY (un its (unknown) date) 11/02/21 [History Confirmed un known) 05/05/22] (unknown) (no (unknown) (unknown) fluticasone 100 (units (unknown) date) mcg-salmeterol 50 mcg/dose unk nown) blistr powdr for inhalation (Advair (unknown) (no (unknown) (unknown) fluticasone propionate 50 (units (unknown) date) mcg/actuation nasal unknown) spray,suspension 1 spray (unknown) (no (unknown) (unknown) have occurred. If there (units (unknown) date) are any questions, please unkn own) contact the Medical Records (unknown) (no (unknown) (unknown) household members: spouse (units (unknown) date) unknown) (unknown) (no (unknown) (unknown) inhalation DIRECTED (u nits (unknown) date) 07/18/18 [History Confirmed un known) 05/05/22] (unknown) (no (unknown) (unknown) intranasal DAILY 11/02/21 (units (unknown) date) [History Confirmed unknown) 05/05/22] (unknown) (no (unknown) (unknown) levalbuterol HCl 0.31 mg/3 (units (unknown) date) mL solution for unknown) nebulization (Xopenex) 1 dose (unknown) (no (unknown) (unknown) may occur. Occasional (u nits (unknown) date) wrong-word or 'sound-alike' un known) substitutions may have (unknown) (no (unknown) (unknown) morphine Adverse Reaction (units (unknown) date) (Severe, Verified 05/05/22 unk nown) 09:14) (unknown) (no (unknown) (unknown) multivitamin 1 tab PO (un its (unknown) date) DAILY 10/02/18 [History unknow n) Confirmed 05/05/22] (unknown) (no (unknown) (unknown) nitrofurantoin (units (unknown) date) macrocrystal 100 mg capsule un known) 100 mg PO BEDTIME #60 caps 03/15/22 (unknown) (no (unknown) (unknown) occurred due to the (unit s (unknown) date) inherent limitations of unknow n) voice recognition software. Please (unknown) (no (unknown) (unknown) potassium 99 mg tablet 99 (units (unknown) date) mg PO DAILY 11/02/21 unknown) [History Confirmed 05/05/22] (unknown) (no (unknown) (unknown) probiotic PO DAILY (units (unknown) date) 11/02/21 [History Confirmed un known) 05/05/22] (unknown) (no (unknown) (unknown) psyllium husk 0.4 gram (u nits (unknown) date) capsule (Fiber (psyllium unkno wn) husk)) 0.4 g PO BID 11/02/21 (unknown) (no (unknown) (unknown) read the note carefully ( units (unknown) date) and recognize, using unknown) context, where these substitutions (unknown) (no (unknown) (unknown) software. 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 (unknown) (no (unknown) (unknown) vitamin B complex (B (uni ts (unknown) date) Complex 1 tablet) 1 tab PO unk nown) DAILY 07/18/18 [History (unknown) (no (unknown) (unknown) zinc acetate 50 mg (zinc) (units (unknown) date) capsule (Galzin) 50 mg PO unkn own) DAILY 11/02/21 [History Result panel 3 (unknown) (no (unknown) (unknown) (no value) (units (unk nown) date) unknown) (unknown) (no (unknown) (unknown) Orders: (units (unkno wn) date) unknown) (unknown) (no (unknown) (unknown) (no value) (units (unk nown) date) unknown) (unknown) (no (unknown) (unknown) 05/05/22 (units (unkno wn) date) unknown) (unknown) (no (unknown) (unknown) 09:30 (units (unkno wn) date) unknown) (unknown) (no (unknown) (unknown) ABDOMINAL CRAMPING, LOC ( units (unknown) date) unknown) (unknown) (no (unknown) (unknown) [place] [address] (unit s (unknown) date) unknown) (unknown) (no (unknown) (unknown) Cancer (units (unkno wn) date) unknown) (unknown) (no (unknown) (unknown) Diabetes mellitus (units (unknown) date) unknown) (unknown) (no (unknown) (unknown) Draft (units (unkno wn) date) unknown) (unknown) (no (unknown) (unknown) HIVES (units (unkno wn) date) unknown) (unknown) (no (unknown) (unknown) [facility] (units (unknown) date) unknown) (unknown) (no (unknown) (unknown) MUSCLE ACHES (units (u nknown) date) unknown) (unknown) (no (unknown) (unknown) Myalgias (units (unkno wn) date) unknown) (unknown) (no (unknown) (unknown) N+V (units (unkno wn) date) unknown) (unknown) (no (unknown) (unknown) Urology Office Visit (uni ts (unknown) date) unknown) (unknown) (no (unknown) (unknown) (no value) (units (unk nown) date) unknown) (unknown) (no (unknown) (unknown) Urine Appearance Clear (units (unknown) date) Last Edit by Angy unknown) J LUIS Kim on 05/05/22 09:31 (unknown) (no (unknown) (unknown) Urine Bilirubin Negative (units (unknown) date) Last Edit by Angy unknown) J LUIS Kim on 05/05/22 09:31 (unknown) (no (unknown) (unknown) Urine Blood Negative (units (unknown) date) Last Edit by Angy unknown) J LUIS Kim on 05/05/22 09:31 (unknown) (no (unknown) (unknown) Urine Color Shanelle (units (unknown) date) Last Edit by Angy unknown) J LUIS Kim on 05/05/22 09:31 (unknown) (no (unknown) (unknown) Urine Glucose Negative (u nits (unknown) date) mg/dL Last Edit by Angy un known) J LUIS Kim on 05/05/22 09 (unknown) (no (unknown) (unknown) Urine Ketones Negative (units (unknown) date) Last Edit by Angy unknown) J LUIS Kim on 05/05/22 09:31 (unknown) (no (unknown) (unknown) Urine Leukocyte Esterase (units (unknown) date) Negative Last Edit by unkn own) Angy Kim RN on 05/05 (unknown) (no (unknown) (unknown) Urine Nitrate Negative (units (unknown) date) Last Edit by Angy unknown) J LUIS Kim on 05/05/22 09:31 (unknown) (no (unknown) (unknown) Urine Protein Negative (units (unknown) date) Last Edit by Angy unknown) J LUIS Kim on 05/05/22 09:31 (unknown) (no (unknown) (unknown) Urine Specific Elizabeth (u nits (unknown) date) 1.015 Last Edit by unknown ) Angy Kim RN on 05/05/22 (unknown) (no (unknown) (unknown) Urine Urobilinogen - 0.2 (units (unknown) date) mg/dL Last Edit by unknown ) Angy Kim RN on (unknown) (no (unknown) (unknown) Urine pH 6.5 Last (units (unknown) date) Edit by Angy Kim RN un known) on 05/05/22 09:31 (unknown) (no (unknown) (unknown) (units (unkno wn) date) unknown) (unknown) (no (unknown) (unknown) 05/05/22 (units (unkno wn) date) unknown) (unknown) (no (unknown) (unknown) 05/05/22] (units (unkn own) date) unknown) (unknown) (no (unknown) (unknown) 09:31 (units (unkno wn) date) unknown) (unknown) (no (unknown) (unknown) 22 (units (unkno wn) date) unknown) (unknown) (no (unknown) (unknown) 71 Y/O F presents to (uni ts (unknown) date) clinic for post operative unkn own) appointment/post void residual (unknown) (no (unknown) (unknown) :31 (units (unkno wn) date) unknown) (unknown) (no (unknown) (unknown) Adverse Reaction (Unknown, (units (unknown) date) Verified 05/05/22 09:14) unkno wn) (unknown) (no (unknown) (unknown) Age/Sex: 71 / F Date of (units (unknown) date) Service: unknown) (unknown) (no (unknown) (unknown) Allergies (units (unkn own) date) unknown) (unknown) (no (unknown) (unknown) Anxiety (units (unkno wn) date) unknown) (unknown) (no (unknown) (unknown) Arthritis (units (unkn own) date) unknown) (unknown) (no (unknown) (unknown) Assessment + Plan (units (unknown) date) unknown) (unknown) (no (unknown) (unknown) Asthma (units (unkno wn) date) unknown) (unknown) (no (unknown) (unknown) Attending Dr: Jericho (uni ts (unknown) date) Renetta HAINES unknown) (unknown) (no (unknown) (unknown) BP 118/70 (units (u nknown) date) unknown) (unknown) (no (unknown) (unknown) Barretts esophagus (units (unknown) date) unknown) (unknown) (no (unknown) (unknown) Billing- Post Void (units (unknown) date) Residual: Post Void unknown) Residual- 80823 (unknown) (no (unknown) (unknown) Bladder calculi (units (unknown) date) unknown) (unknown) (no (unknown) (unknown) Bladder volume: PVR=68ML (units (unknown) date) unknown) (unknown) (no (unknown) (unknown) Blood Pressure Location ( units (unknown) date) Lt brachial unknown) (unknown) (no (unknown) (unknown) Brother Hypertension (u nits (unknown) date) unknown) (unknown) (no (unknown) (unknown) C) 1 ea PO DAILY 11/02/21 (units (unknown) date) [History Confirmed unknown) 05/05/22] (unknown) (no (unknown) (unknown) Cataract (lens) fragments (units (unknown) date) in eye following cataract unkn own) surgery, bilateral (unknown) (no (unknown) (unknown) Cervical cancer (units (unknown) date) unknown) (unknown) (no (unknown) (unknown) Colon polyps (units (u nknown) date) unknown) (unknown) (no (unknown) (unknown) Complications: No (units (unknown) date) unknown) (unknown) (no (unknown) (unknown) Confirmed 05/05/22] (unit s (unknown) date) unknown) (unknown) (no (unknown) (unknown) Consent signed: No (units (unknown) date) unknown) (unknown) (no (unknown) (unknown) : 1950 (units (unknown) date) Acct:[id number] unknown) (unknown) (no (unknown) (unknown) Depression (units (unk nown) date) unknown) (unknown) (no (unknown) (unknown) Dept at . (u nits (unknown) date) unknown) (unknown) (no (unknown) (unknown) Diskus) 1 inh inhalation (units (unknown) date) BID 09/23/21 [History unknown) Confirmed 05/05/22] (unknown) (no (unknown) (unknown) Documented By: (units (unknown) date) Jericho Jackson MD unknown) 05/05/22 0912 (unknown) (no (unknown) (unknown) Esophageal spasm (units (unknown) date) unknown) (unknown) (no (unknown) (unknown) Family History (Reviewed (units (unknown) date) 03/15/22 @ 15:26 by Jericho boston) MD Renetta) (unknown) (no (unknown) (unknown) Family/Other Cancer (un its (unknown) date) unknown) (unknown) (no (unknown) (unknown) Father Congestive heart (units (unknown) date) failure unknown) (unknown) (no (unknown) (unknown) Foreign body in bladder ( units (unknown) date) and urethra unknown) (unknown) (no (unknown) (unknown) Grandfather Congestive (units (unknown) date) heart failure unknown) (unknown) (no (unknown) (unknown) Grandmother Congestive (units (unknown) date) heart failure unknown) (unknown) (no (unknown) (unknown) History of bladder surgery (units (unknown) date) (-2007) unknown) (unknown) (no (unknown) (unknown) History of bladder (units (unknown) date) suspension procedure unknown) (unknown) (no (unknown) (unknown) History of cholecystectomy (units (unknown) date) unknown) (unknown) (no (unknown) (unknown) History of colonoscopy (u nits (unknown) date) unknown) (unknown) (no (unknown) (unknown) History of (units (unk nown) date) esophagogastroduodenoscopy unk nown) (EGD) (unknown) (no (unknown) (unknown) History of migraine (unit s (unknown) date) unknown) (unknown) (no (unknown) (unknown) History of recurrent UTI (units (unknown) date) (urinary tract infection) unkn own) (unknown) (no (unknown) (unknown) History of total abdominal (units (unknown) date) hysterectomy and bilateral unk nown) salpingo-oophorectomy (unknown) (no (unknown) (unknown) History of total knee (un its (unknown) date) arthroplasty unknown) (unknown) (no (unknown) (unknown) Hx of cystoscopy (units (unknown) date) (11/23/21) unknown) (unknown) (no (unknown) (unknown) Hyperlipidemia (units (unknown) date) unknown) (unknown) (no (unknown) (unknown) Hypertension (units (u nknown) date) unknown) (unknown) (no (unknown) (unknown) Informed consent given: No (units (unknown) date) unknown) (unknown) (no (unknown) (unknown) Intake (units (unkno wn) date) unknown) (unknown) (no (unknown) (unknown) Intake Note: (units (u nknown) date) unknown) (unknown) (no (unknown) (unknown) Intake performed by: (uni ts (unknown) date) Angy Kim unknown) (unknown) (no (unknown) (unknown) Intake- Clincial Staff (u nits (unknown) date) unknown) (unknown) (no (unknown) (unknown) Last Menstural Cycle + (u nits (unknown) date) Details unknown) (unknown) (no (unknown) (unknown) Loc: [facility] (units (unkno wn) date) unknown) (unknown) (no (unknown) (unknown) Lower urinary tract (unit s (unknown) date) symptoms (LUTS) unknown) (unknown) (no (unknown) (unknown) Malaise and fatigue (unit s (unknown) date) unknown) (unknown) (no (unknown) (unknown) Medical History (Updated (units (unknown) date) 03/15/22 @ 15:28 by Jericho Jackson MD) (unknown) (no (unknown) (unknown) Medications (units (un known) date) unknown) (unknown) (no (unknown) (unknown) Office Procedures (units (unknown) date) unknown) (unknown) (no (unknown) (unknown) Orders (units (unkno wn) date) unknown) (unknown) (no (unknown) (unknown) Other Menstrual Period: ( units (unknown) date) Postmenopausal unknown) (unknown) (no (unknown) (unknown) Oxygen Delivery Method (u nits (unknown) date) room air unknown) (unknown) (no (unknown) (unknown) PFSH (units (unkno wn) date) unknown) (unknown) (no (unknown) (unknown) POC Urine Dip Today R30.0 (units (unknown) date) - Dysuria unknown) (unknown) (no (unknown) (unknown) Pain 10/02/18 [History (u nits (unknown) date) Confirmed 05/05/22] unknown) (unknown) (no (unknown) (unknown) Palpitations (units (u nknown) date) unknown) (unknown) (no (unknown) (unknown) Patient: White (units (unknown) date) Elen Sargent unknown) (unknown) (no (unknown) (unknown) Patulous eustachian tube (units (unknown) date) of left ear unknown) (unknown) (no (unknown) (unknown) Pelvic relaxation (units (unknown) date) unknown) (unknown) (no (unknown) (unknown) Photos taken: No (units (unknown) date) unknown) (unknown) (no (unknown) (unknown) Position Sitting (unit s (unknown) date) unknown) (unknown) (no (unknown) (unknown) Postmenopausal (units (unknown) date) unknown) (unknown) (no (unknown) (unknown) Postmenopausal atrophic ( units (unknown) date) vaginitis unknown) (unknown) (no (unknown) (unknown) Procedure performed by: ( units (unknown) date) Angy Kim unknown) (unknown) (no (unknown) (unknown) Pulse 80 (units (un known) date) unknown) (unknown) (no (unknown) (unknown) Pulse Oximetry (%) 97 (units (unknown) date) unknown) (unknown) (no (unknown) (unknown) Pulse Source Monitor ( units (unknown) date) unknown) (unknown) (no (unknown) (unknown) R#: [id number] (units (unknown) date) unknown) (unknown) (no (unknown) (unknown) Reason For Visit (units (unknown) date) unknown) (unknown) (no (unknown) (unknown) Residual: post void (unit s (unknown) date) unknown) (unknown) (no (unknown) (unknown) Respiration 16 (units (unknown) date) unknown) (unknown) (no (unknown) (unknown) Results (units (unkno wn) date) unknown) (unknown) (no (unknown) (unknown) S/P right knee arthroscopy (units (unknown) date) unknown) (unknown) (no (unknown) (unknown) Signed By: (units (unk nown) date) unknown) (unknown) (no (unknown) (unknown) Sister Hypertension (un its (unknown) date) unknown) (unknown) (no (unknown) (unknown) Smoking Status: Never (u nits (unknown) date) smoker unknown) (unknown) (no (unknown) (unknown) Smoking Status: Never (un its (unknown) date) smoker unknown) (unknown) (no (unknown) (unknown) Social History (Reviewed (units (unknown) date) 03/15/22 @ 15:26 by Jericho palomares nowdangelo) MD Renetta) (unknown) (no (unknown) (unknown) Aqjvknt-TUT-UzB Reductase (units (unknown) date) Inhibitor [[id number]-Rxa unk nown) Reductase Inhibitor] (unknown) (no (unknown) (unknown) Status post surgery (unit s (unknown) date) (10/08/18) unknown) (unknown) (no (unknown) (unknown) Surgical History (Reviewed (units (unknown) date) 03/15/22 @ 15:26 by Jericho boston) MD Renetta) (unknown) (no (unknown) (unknown) This note may have been ( units (unknown) date) all or partially generated jelani boston) using voice recognition (unknown) (no (unknown) (unknown) Tobacco Status (units (unknown) date) unknown) (unknown) (no (unknown) (unknown) Urine Dipstick (units (unknown) date) unknown) (unknown) (no (unknown) (unknown) Uterine cancer (units (unknown) date) unknown) (unknown) (no (unknown) (unknown) Vaginal pain (units (u nknown) date) unknown) (unknown) (no (unknown) (unknown) Visit Reasons: post-op (u nits (unknown) date) appt/PVR + review pathology un known) (unknown) (no (unknown) (unknown) Vitals (units (unkno wn) date) unknown) (unknown) (no (unknown) (unknown) [FISH OIL] 1 cap PO DAILY (units (unknown) date) ##0 07/13/11 [History unknown) Confirmed 05/05/22] (unknown) (no (unknown) (unknown) [History Confirmed (units (unknown) date) 05/05/22] unknown) (unknown) (no (unknown) (unknown) [Rx Confirmed 05/05/22] ( units (unknown) date) unknown) (unknown) (no (unknown) (unknown) [VITAMIN D] 1 cap PO DAILY (units (unknown) date) ##0 07/13/11 [History unknown) Confirmed 05/05/22] (unknown) (no (unknown) (unknown) alcohol intake: current (units (unknown) date) unknown) (unknown) (no (unknown) (unknown) amlodipine 2.5 mg tablet (units (unknown) date) 2.5 mg PO DAILY 09/14/21 unkno wn) [History Confirmed 05/05/22] (unknown) (no (unknown) (unknown) and pathology review (uni ts (unknown) date) unknown) (unknown) (no (unknown) (unknown) ascorbic acid 1,000 (unit s (unknown) date) up-rrynmowyrrkn-glrxblxt unkno wn) powder effervescent pack (Emergen- (unknown) (no (unknown) (unknown) aspirin 81 mg (units ( unknown) date) tablet,delayed release 81 unkn own) mg PO DAILY 10/01/18 [History Confirmed (unknown) (no (unknown) (unknown) atorvastatin Adverse (uni ts (unknown) date) Reaction (Intermediate, unknow n) Verified 05/05/22 09:14) (unknown) (no (unknown) (unknown) bupropion HCl 75 mg tablet (units (unknown) date) 75 mg PO BID 09/14/21 unknown) [History Confirmed 05/05/22] (unknown) (no (unknown) (unknown) zxksfqbeqz-aapknnlyuvjsr-x (units (unknown) date) affeine 50 mg-325 mg-40 mg unk nown) tablet 1 tab PO Q4H PRN (unknown) (no (unknown) (unknown) cephalexin Adverse (units (unknown) date) Reaction (Mild, Verified unkno wn) 05/05/22 09:14) (unknown) (no (unknown) (unknown) citalopram 40 mg tablet ( units (unknown) date) (Celexa) 40 mg PO DAILY unknow n) 07/18/18 [History Confirmed (unknown) (no (unknown) (unknown) codeine Adverse Reaction (units (unknown) date) (Intermediate, Verified unknow n) 05/05/22 09:14) (unknown) (no (unknown) (unknown) coenzyme Q10 50 mg capsule (units (unknown) date) 50 mg PO BID 11/02/21 unknown) [History Confirmed 05/05/22] (unknown) (no (unknown) (unknown) cranberry extract 650 mg (units (unknown) date) capsule 650 mg PO DAILY unknow n) 11/02/21 [History Confirmed (unknown) (no (unknown) (unknown) cyanocobalamin (vitamin ( units (unknown) date) B-12) 500 mcg tablet 1,500 unk nown) mcg PO DAILY 10/02/18 (unknown) (no (unknown) (unknown) d-mannose PO BID 11/02/21 (units (unknown) date) [History Confirmed unknown) 05/05/22] (unknown) (no (unknown) (unknown) estradiol 0.1 mg/24 hr (u nits (unknown) date) semiweekly transdermal unknown ) patch 1 mg topical 2XW 09/14/21 (unknown) (no (unknown) (unknown) fexofenadine 180 mg tablet (units (unknown) date) 180 mg PO DAILY 11/02/21 unkno wn) [History Confirmed 05/05/22] (unknown) (no (unknown) (unknown) flaxseed oil PO DAILY (un its (unknown) date) 11/02/21 [History Confirmed un known) 05/05/22] (unknown) (no (unknown) (unknown) fluticasone 100 (units (unknown) date) mcg-salmeterol 50 mcg/dose unk nown) blistr powdr for inhalation (Advair (unknown) (no (unknown) (unknown) fluticasone propionate 50 (units (unknown) date) mcg/actuation nasal unknown) spray,suspension 1 spray (unknown) (no (unknown) (unknown) have occurred. If there (units (unknown) date) are any questions, please unkn own) contact the Medical Records (unknown) (no (unknown) (unknown) household members: spouse (units (unknown) date) unknown) (unknown) (no (unknown) (unknown) inhalation DIRECTED (u nits (unknown) date) 07/18/18 [History Confirmed un known) 05/05/22] (unknown) (no (unknown) (unknown) intranasal DAILY 11/02/21 (units (unknown) date) [History Confirmed unknown) 05/05/22] (unknown) (no (unknown) (unknown) levalbuterol HCl 0.31 mg/3 (units (unknown) date) mL solution for unknown) nebulization (Xopenex) 1 dose (unknown) (no (unknown) (unknown) may occur. Occasional (u nits (unknown) date) wrong-word or 'sound-alike' un known) substitutions may have (unknown) (no (unknown) (unknown) morphine Adverse Reaction (units (unknown) date) (Severe, Verified 05/05/22 unk nown) 09:14) (unknown) (no (unknown) (unknown) multivitamin 1 tab PO (un its (unknown) date) DAILY 10/02/18 [History unknow n) Confirmed 05/05/22] (unknown) (no (unknown) (unknown) nitrofurantoin (units (unknown) date) macrocrystal 100 mg capsule un known) 100 mg PO BEDTIME #60 caps 03/15/22 (unknown) (no (unknown) (unknown) occurred due to the (unit s (unknown) date) inherent limitations of unknow n) voice recognition software. Please (unknown) (no (unknown) (unknown) potassium 99 mg tablet 99 (units (unknown) date) mg PO DAILY 11/02/21 unknown) [History Confirmed 05/05/22] (unknown) (no (unknown) (unknown) probiotic PO DAILY (units (unknown) date) 11/02/21 [History Confirmed un known) 05/05/22] (unknown) (no (unknown) (unknown) psyllium husk 0.4 gram (u nits (unknown) date) capsule (Fiber (psyllium unkno wn) husk)) 0.4 g PO BID 11/02/21 (unknown) (no (unknown) (unknown) read the note carefully ( units (unknown) date) and recognize, using unknown) context, where these substitutions (unknown) (no (unknown) (unknown) software. 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 (unknown) (no (unknown) (unknown) vitamin B complex (B (uni ts (unknown) date) Complex 1 tablet) 1 tab PO unk nown) DAILY 07/18/18 [History (unknown) (no (unknown) (unknown) zinc acetate 50 mg (zinc) (units (unknown) date) capsule (Galzin) 50 mg PO unkn own) DAILY 11/02/21 [History Result panel 4 (unknown) (no (unknown) (unknown) (no value) (units (unk nown) date) unknown) (unknown) (no (unknown) (unknown) Orders: (units (unkno wn) date) unknown) (unknown) (no (unknown) (unknown) (no value) (units (unk nown) date) unknown) (unknown) (no (unknown) (unknown) 05/05/22 (units (unkno wn) date) unknown) (unknown) (no (unknown) (unknown) 09:30 (units (unkno wn) date) unknown) (unknown) (no (unknown) (unknown) ABDOMINAL CRAMPING, LOC ( units (unknown) date) unknown) (unknown) (no (unknown) (unknown) [place] [address] (unit s (unknown) date) unknown) (unknown) (no (unknown) (unknown) Cancer (units (unkno wn) date) unknown) (unknown) (no (unknown) (unknown) Diabetes mellitus (units (unknown) date) unknown) (unknown) (no (unknown) (unknown) Draft (units (unkno wn) date) unknown) (unknown) (no (unknown) (unknown) HIVES (units (unkno wn) date) unknown) (unknown) (no (unknown) (unknown) [facility] (units (unknown) date) unknown) (unknown) (no (unknown) (unknown) MUSCLE ACHES (units (u nknown) date) unknown) (unknown) (no (unknown) (unknown) Myalgias (units (unkno wn) date) unknown) (unknown) (no (unknown) (unknown) N+V (units (unkno wn) date) unknown) (unknown) (no (unknown) (unknown) Urology Office Visit (uni ts (unknown) date) unknown) (unknown) (no (unknown) (unknown) (no value) (units (unk nown) date) unknown) (unknown) (no (unknown) (unknown) Urine Appearance Clear (units (unknown) date) Last Edit by Angy unknown) J LUIS Kim on 05/05/22 09:31 (unknown) (no (unknown) (unknown) Urine Bilirubin Negative (units (unknown) date) Last Edit by Angy unknown) J LUIS Kim on 05/05/22 09:31 (unknown) (no (unknown) (unknown) Urine Blood Negative (units (unknown) date) Last Edit by Angy unknown) J LUIS Kim on 05/05/22 09:31 (unknown) (no (unknown) (unknown) Urine Color Shanelle (units (unknown) date) Last Edit by Angy unknown) J LUIS Kim on 05/05/22 09:31 (unknown) (no (unknown) (unknown) Urine Glucose Negative (u nits (unknown) date) mg/dL Last Edit by Angy un known) J LUIS Kim on 05/05/22 09 (unknown) (no (unknown) (unknown) Urine Ketones Negative (units (unknown) date) Last Edit by Angy unknown) J LUIS Kim on 05/05/22 09:31 (unknown) (no (unknown) (unknown) Urine Leukocyte Esterase (units (unknown) date) Negative Last Edit by unkn own) Angy Kim RN on 05/05 (unknown) (no (unknown) (unknown) Urine Nitrate Negative (units (unknown) date) Last Edit by Angy unknown) J LUIS Kim on 05/05/22 09:31 (unknown) (no (unknown) (unknown) Urine Protein Negative (units (unknown) date) Last Edit by Angy unknown) J LUIS Kim on 05/05/22 09:31 (unknown) (no (unknown) (unknown) Urine Specific Elizabeth (u nits (unknown) date) 1.015 Last Edit by unknown ) Angy Kim RN on 05/05/22 (unknown) (no (unknown) (unknown) Urine Urobilinogen - 0.2 (units (unknown) date) mg/dL Last Edit by unknown ) Angy Kim RN on (unknown) (no (unknown) (unknown) Urine pH 6.5 Last (units (unknown) date) Edit by Angy Kim RN un known) on 05/05/22 09:31 (unknown) (no (unknown) (unknown) / (units (unkno wn) date) unknown) (unknown) (no (unknown) (unknown) 05/05/22 (units (unkno wn) date) unknown) (unknown) (no (unknown) (unknown) 05/05/22] (units (unkn own) date) unknown) (unknown) (no (unknown) (unknown) 09:31 (units (unkno wn) date) unknown) (unknown) (no (unknown) (unknown) 22 (units (unkno wn) date) unknown) (unknown) (no (unknown) (unknown) 71 Y/O F presents to (uni ts (unknown) date) clinic for post operative unkn own) appointment/post void residual (unknown) (no (unknown) (unknown) :31 (units (unkno wn) date) unknown) (unknown) (no (unknown) (unknown) Adverse Reaction (Unknown, (units (unknown) date) Verified 05/05/22 09:14) unkno wn) (unknown) (no (unknown) (unknown) Age/Sex: 71 / F Date of (units (unknown) date) Service: unknown) (unknown) (no (unknown) (unknown) Allergies (units (unkn own) date) unknown) (unknown) (no (unknown) (unknown) Anxiety (units (unkno wn) date) unknown) (unknown) (no (unknown) (unknown) Arthritis (units (unkn own) date) unknown) (unknown) (no (unknown) (unknown) Assessment + Plan (units (unknown) date) unknown) (unknown) (no (unknown) (unknown) Asthma (units (unkno wn) date) unknown) (unknown) (no (unknown) (unknown) Attending Dr: Jericho (uni ts (unknown) date) Renetta HAINES unknown) (unknown) (no (unknown) (unknown) BP 118/70 (units (u nknown) date) unknown) (unknown) (no (unknown) (unknown) Barretts esophagus (units (unknown) date) unknown) (unknown) (no (unknown) (unknown) Billing- Post Void (units (unknown) date) Residual: Post Void unknown) Residual- 92082 (unknown) (no (unknown) (unknown) Bladder calculi (units (unknown) date) unknown) (unknown) (no (unknown) (unknown) Bladder volume: PVR=68ML (units (unknown) date) unknown) (unknown) (no (unknown) (unknown) Blood Pressure Location ( units (unknown) date) Lt brachial unknown) (unknown) (no (unknown) (unknown) Brother Hypertension (u nits (unknown) date) unknown) (unknown) (no (unknown) (unknown) C) 1 ea PO DAILY 11/02/21 (units (unknown) date) [History Confirmed unknown) 05/05/22] (unknown) (no (unknown) (unknown) Cataract (lens) fragments (units (unknown) date) in eye following cataract unkn own) surgery, bilateral (unknown) (no (unknown) (unknown) Cervical cancer (units (unknown) date) unknown) (unknown) (no (unknown) (unknown) Colon polyps (units (u nknown) date) unknown) (unknown) (no (unknown) (unknown) Complications: No (units (unknown) date) unknown) (unknown) (no (unknown) (unknown) Confirmed 05/05/22] (unit s (unknown) date) unknown) (unknown) (no (unknown) (unknown) Consent signed: No (units (unknown) date) unknown) (unknown) (no (unknown) (unknown) : 1950 (units (unknown) date) Acct:[id number] unknown) (unknown) (no (unknown) (unknown) Depression (units (unk nown) date) unknown) (unknown) (no (unknown) (unknown) Dept at . (u nits (unknown) date) unknown) (unknown) (no (unknown) (unknown) Diskus) 1 inh inhalation (units (unknown) date) BID 09/23/21 [History unknown) Confirmed 05/05/22] (unknown) (no (unknown) (unknown) Documented By: (units (unknown) date) Jericho Jackson MD unknown) 05/05/22 0912 (unknown) (no (unknown) (unknown) Esophageal spasm (units (unknown) date) unknown) (unknown) (no (unknown) (unknown) Family History (Reviewed (units (unknown) date) 03/15/22 @ 15:26 by Jericho boston) MD Renetta) (unknown) (no (unknown) (unknown) Family/Other Cancer (un its (unknown) date) unknown) (unknown) (no (unknown) (unknown) Father Congestive heart (units (unknown) date) failure unknown) (unknown) (no (unknown) (unknown) Foreign body in bladder ( units (unknown) date) and urethra unknown) (unknown) (no (unknown) (unknown) Grandfather Congestive (units (unknown) date) heart failure unknown) (unknown) (no (unknown) (unknown) Grandmother Congestive (units (unknown) date) heart failure unknown) (unknown) (no (unknown) (unknown) History of bladder surgery (units (unknown) date) (-2007) unknown) (unknown) (no (unknown) (unknown) History of bladder (units (unknown) date) suspension procedure unknown) (unknown) (no (unknown) (unknown) History of cholecystectomy (units (unknown) date) unknown) (unknown) (no (unknown) (unknown) History of colonoscopy (u nits (unknown) date) unknown) (unknown) (no (unknown) (unknown) History of (units (unk nown) date) esophagogastroduodenoscopy unk nown) (EGD) (unknown) (no (unknown) (unknown) History of migraine (unit s (unknown) date) unknown) (unknown) (no (unknown) (unknown) History of recurrent UTI (units (unknown) date) (urinary tract infection) unkn own) (unknown) (no (unknown) (unknown) History of total abdominal (units (unknown) date) hysterectomy and bilateral unk nown) salpingo-oophorectomy (unknown) (no (unknown) (unknown) History of total knee (un its (unknown) date) arthroplasty unknown) (unknown) (no (unknown) (unknown) Hx of cystoscopy (units (unknown) date) (11/23/21) unknown) (unknown) (no (unknown) (unknown) Hyperlipidemia (units (unknown) date) unknown) (unknown) (no (unknown) (unknown) Hypertension (units (u nknown) date) unknown) (unknown) (no (unknown) (unknown) Informed consent given: No (units (unknown) date) unknown) (unknown) (no (unknown) (unknown) Intake (units (unkno wn) date) unknown) (unknown) (no (unknown) (unknown) Intake Note: (units (u nknown) date) unknown) (unknown) (no (unknown) (unknown) Intake performed by: (uni ts (unknown) date) Angy Kim unknown) (unknown) (no (unknown) (unknown) Intake- Clincial Staff (u nits (unknown) date) unknown) (unknown) (no (unknown) (unknown) Last Menstural Cycle + (u nits (unknown) date) Details unknown) (unknown) (no (unknown) (unknown) Loc: [facility] (units (unkno wn) date) unknown) (unknown) (no (unknown) (unknown) Lower urinary tract (unit s (unknown) date) symptoms (LUTS) unknown) (unknown) (no (unknown) (unknown) Malaise and fatigue (unit s (unknown) date) unknown) (unknown) (no (unknown) (unknown) Medical History (Updated (units (unknown) date) 03/15/22 @ 15:28 by Jericho boston) MD Renetta) (unknown) (no (unknown) (unknown) Medications (units (un known) date) unknown) (unknown) (no (unknown) (unknown) Office Procedures (units (unknown) date) unknown) (unknown) (no (unknown) (unknown) Orders (units (unkno wn) date) unknown) (unknown) (no (unknown) (unknown) Other Menstrual Period: ( units (unknown) date) Postmenopausal unknown) (unknown) (no (unknown) (unknown) Oxygen Delivery Method (u nits (unknown) date) room air unknown) (unknown) (no (unknown) (unknown) PFSH (units (unkno wn) date) unknown) (unknown) (no (unknown) (unknown) POC Urine Dip Today R30.0 (units (unknown) date) - Dysuria unknown) (unknown) (no (unknown) (unknown) Pain 10/02/18 [History (u nits (unknown) date) Confirmed 05/05/22] unknown) (unknown) (no (unknown) (unknown) Palpitations (units (u nknown) date) unknown) (unknown) (no (unknown) (unknown) Patient: White (units (unknown) date) Elen Sargent S M unknown) (unknown) (no (unknown) (unknown) Patulous eustachian tube (units (unknown) date) of left ear unknown) (unknown) (no (unknown) (unknown) Pelvic relaxation (units (unknown) date) unknown) (unknown) (no (unknown) (unknown) Photos taken: No (units (unknown) date) unknown) (unknown) (no (unknown) (unknown) Position Sitting (unit s (unknown) date) unknown) (unknown) (no (unknown) (unknown) Postmenopausal (units (unknown) date) unknown) (unknown) (no (unknown) (unknown) Postmenopausal atrophic ( units (unknown) date) vaginitis unknown) (unknown) (no (unknown) (unknown) Procedure performed by: ( units (unknown) date) Angy Kim unknown) (unknown) (no (unknown) (unknown) Pulse 80 (units (un known) date) unknown) (unknown) (no (unknown) (unknown) Pulse Oximetry (%) 97 (units (unknown) date) unknown) (unknown) (no (unknown) (unknown) Pulse Source Monitor ( units (unknown) date) unknown) (unknown) (no (unknown) (unknown) R#: [id number] (units (unknown) date) unknown) (unknown) (no (unknown) (unknown) Reason For Visit (units (unknown) date) unknown) (unknown) (no (unknown) (unknown) Residual: post void (unit s (unknown) date) unknown) (unknown) (no (unknown) (unknown) Respiration 16 (units (unknown) date) unknown) (unknown) (no (unknown) (unknown) Results (units (unkno wn) date) unknown) (unknown) (no (unknown) (unknown) S/P right knee arthroscopy (units (unknown) date) unknown) (unknown) (no (unknown) (unknown) Signed By: (units (unk n) date) unknown) (unknown) (no (unknown) (unknown) Sister Hypertension (un its (unknown) date) unknown) (unknown) (no (unknown) (unknown) Smoking Status: Never (u nits (unknown) date) smoker unknown) (unknown) (no (unknown) (unknown) Smoking Status: Never (un its (unknown) date) smoker unknown) (unknown) (no (unknown) (unknown) Social History (Reviewed (units (unknown) date) 03/15/22 @ 15:26 by Jericho palomares nowdangelo) MD Renetta) (unknown) (no (unknown) (unknown) Nyibvru-MIB-SlC Reductase (units (unknown) date) Inhibitor [Lftghpl-Pyu-Gom abiliok n) Reductase Inhibitor] (unknown) (no (unknown) (unknown) Status post surgery (unit s (unknown) date) (10/08/18) unknown) (unknown) (no (unknown) (unknown) Surgical History (Reviewed (units (unknown) date) 03/15/22 @ 15:26 by Jericho boston) MD Renetta) (unknown) (no (unknown) (unknown) This note may have been ( units (unknown) date) all or partially generated jelani boston) using voice recognition (unknown) (no (unknown) (unknown) Tobacco Status (units (unknown) date) unknown) (unknown) (no (unknown) (unknown) Urine Dipstick (units (unknown) date) unknown) (unknown) (no (unknown) (unknown) Uterine cancer (units (unknown) date) unknown) (unknown) (no (unknown) (unknown) Vaginal pain (units (u nknown) date) unknown) (unknown) (no (unknown) (unknown) Visit Reasons: post-op (u nits (unknown) date) appt/PVR + review pathology un known) (unknown) (no (unknown) (unknown) Vitals (units (unkno wn) date) unknown) (unknown) (no (unknown) (unknown) [FISH OIL] 1 cap PO DAILY (units (unknown) date) ##0 07/13/11 [History unknown) Confirmed 05/05/22] (unknown) (no (unknown) (unknown) [History Confirmed (units (unknown) date) 05/05/22] unknown) (unknown) (no (unknown) (unknown) [Rx Confirmed 05/05/22] ( units (unknown) date) unknown) (unknown) (no (unknown) (unknown) [VITAMIN D] 1 cap PO DAILY (units (unknown) date) ##0 07/13/11 [History unknown) Confirmed 05/05/22] (unknown) (no (unknown) (unknown) alcohol intake: current (units (unknown) date) unknown) (unknown) (no (unknown) (unknown) amlodipine 2.5 mg tablet (units (unknown) date) 2.5 mg PO DAILY 09/14/21 unkno wn) [History Confirmed 05/05/22] (unknown) (no (unknown) (unknown) and pathology review (uni ts (unknown) date) unknown) (unknown) (no (unknown) (unknown) ascorbic acid 1,000 (unit s (unknown) date) wm-sllitridfzgu-lyszfpbj unkno wn) powder effervescent pack (Emergen- (unknown) (no (unknown) (unknown) aspirin 81 mg (units ( unknown) date) tablet,delayed release 81 unkn own) mg PO DAILY 10/01/18 [History Confirmed (unknown) (no (unknown) (unknown) atorvastatin Adverse (uni ts (unknown) date) Reaction (Intermediate, unknow n) Verified 05/05/22 09:14) (unknown) (no (unknown) (unknown) bupropion HCl 75 mg tablet (units (unknown) date) 75 mg PO BID 09/14/21 unknown) [History Confirmed 05/05/22] (unknown) (no (unknown) (unknown) ktlvbzjsgu-ogtxquoqixbec-q (units (unknown) date) affeine 50 mg-325 mg-40 mg unk nown) tablet 1 tab PO Q4H PRN (unknown) (no (unknown) (unknown) cephalexin Adverse (units (unknown) date) Reaction (Mild, Verified unkno wn) 05/05/22 09:14) (unknown) (no (unknown) (unknown) citalopram 40 mg tablet ( units (unknown) date) (Celexa) 40 mg PO DAILY unknow n) 07/18/18 [History Confirmed (unknown) (no (unknown) (unknown) codeine Adverse Reaction (units (unknown) date) (Intermediate, Verified unknow n) 05/05/22 09:14) (unknown) (no (unknown) (unknown) coenzyme Q10 50 mg capsule (units (unknown) date) 50 mg PO BID 11/02/21 unknown) [History Confirmed 05/05/22] (unknown) (no (unknown) (unknown) cranberry extract 650 mg (units (unknown) date) capsule 650 mg PO DAILY unknow n) 11/02/21 [History Confirmed (unknown) (no (unknown) (unknown) cyanocobalamin (vitamin ( units (unknown) date) B-12) 500 mcg tablet 1,500 unk nown) mcg PO DAILY 10/02/18 (unknown) (no (unknown) (unknown) d-mannose PO BID 11/02/21 (units (unknown) date) [History Confirmed unknown) 05/05/22] (unknown) (no (unknown) (unknown) estradiol 0.1 mg/24 hr (u nits (unknown) date) semiweekly transdermal unknown ) patch 1 mg topical 2XW 09/14/21 (unknown) (no (unknown) (unknown) fexofenadine 180 mg tablet (units (unknown) date) 180 mg PO DAILY 11/02/21 unkno wn) [History Confirmed 05/05/22] (unknown) (no (unknown) (unknown) flaxseed oil PO DAILY (un its (unknown) date) 11/02/21 [History Confirmed un known) 05/05/22] (unknown) (no (unknown) (unknown) fluticasone 100 (units (unknown) date) mcg-salmeterol 50 mcg/dose unk nown) blistr powdr for inhalation (Advair (unknown) (no (unknown) (unknown) fluticasone propionate 50 (units (unknown) date) mcg/actuation nasal unknown) spray,suspension 1 spray (unknown) (no (unknown) (unknown) have occurred. If there (units (unknown) date) are any questions, please unkn own) contact the Medical Records (unknown) (no (unknown) (unknown) household members: spouse (units (unknown) date) unknown) (unknown) (no (unknown) (unknown) inhalation DIRECTED (u nits (unknown) date) 07/18/18 [History Confirmed un known) 05/05/22] (unknown) (no (unknown) (unknown) intranasal DAILY 11/02/21 (units (unknown) date) [History Confirmed unknown) 05/05/22] (unknown) (no (unknown) (unknown) levalbuterol HCl 0.31 mg/3 (units (unknown) date) mL solution for unknown) nebulization (Xopenex) 1 dose (unknown) (no (unknown) (unknown) may occur. Occasional (u nits (unknown) date) wrong-word or 'sound-alike' un known) substitutions may have (unknown) (no (unknown) (unknown) morphine Adverse Reaction (units (unknown) date) (Severe, Verified 05/05/22 unk nown) 09:14) (unknown) (no (unknown) (unknown) multivitamin 1 tab PO (un its (unknown) date) DAILY 10/02/18 [History unknow n) Confirmed 05/05/22] (unknown) (no (unknown) (unknown) nitrofurantoin (units (unknown) date) macrocrystal 100 mg capsule un known) 100 mg PO BEDTIME #60 caps 03/15/22 (unknown) (no (unknown) (unknown) occurred due to the (unit s (unknown) date) inherent limitations of unknow n) voice recognition software. Please (unknown) (no (unknown) (unknown) potassium 99 mg tablet 99 (units (unknown) date) mg PO DAILY 11/02/21 unknown) [History Confirmed 05/05/22] (unknown) (no (unknown) (unknown) probiotic PO DAILY (units (unknown) date) 11/02/21 [History Confirmed un known) 05/05/22] (unknown) (no (unknown) (unknown) psyllium husk 0.4 gram (u nits (unknown) date) capsule (Fiber (psyllium unkno wn) husk)) 0.4 g PO BID 11/02/21 (unknown) (no (unknown) (unknown) read the note carefully ( units (unknown) date) and recognize, using unknown) context, where these substitutions (unknown) (no (unknown) (unknown) software. 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 (unknown) (no (unknown) (unknown) vitamin B complex (B (uni ts (unknown) date) Complex 1 tablet) 1 tab PO unk nown) DAILY 07/18/18 [History (unknown) (no (unknown) (unknown) zinc acetate 50 mg (zinc) (units (unknown) date) capsule (Galzin) 50 mg PO unkn own) DAILY 11/02/21 [History Result panel 5 (unknown) (no (unknown) (unknown) (no value) (units (unk nown) date) unknown) (unknown) (no (unknown) (unknown) Code(s): (units (unkno wn) date) unknown) (unknown) (no (unknown) (unknown) Medications: (units (u nknown) date) unknown) (unknown) (no (unknown) (unknown) Orders: (units (unkno wn) date) unknown) (unknown) (no (unknown) (unknown) Status: Acute (units ( unknown) date) unknown) (unknown) (no (unknown) (unknown) (no value) (units (unk nown) date) unknown) (unknown) (no (unknown) (unknown) 05/05/22 (units (unkno wn) date) unknown) (unknown) (no (unknown) (unknown) 09:30 (units (unkno wn) date) unknown) (unknown) (no (unknown) (unknown) ABDOMINAL CRAMPING, LOC ( units (unknown) date) unknown) (unknown) (no (unknown) (unknown) [place] [address] (unit s (unknown) date) unknown) (unknown) (no (unknown) (unknown) Cancer (units (unkno wn) date) unknown) (unknown) (no (unknown) (unknown) Diabetes mellitus (units (unknown) date) unknown) (unknown) (no (unknown) (unknown) Draft (units (unkno wn) date) unknown) (unknown) (no (unknown) (unknown) HIVES (units (unkno wn) date) unknown) (unknown) (no (unknown) (unknown) [facility] (units (unknown) date) unknown) (unknown) (no (unknown) (unknown) MUSCLE ACHES (units (u nknown) date) unknown) (unknown) (no (unknown) (unknown) Myalgias (units (unkno wn) date) unknown) (unknown) (no (unknown) (unknown) N+V (units (unkno wn) date) unknown) (unknown) (no (unknown) (unknown) Urology Office Visit (uni ts (unknown) date) unknown) (unknown) (no (unknown) (unknown) as a single dose 150 mg ( units (unknown) date) PO ONCE 1 tab 0RF unknown) (unknown) (no (unknown) (unknown) (no value) (units (unk nown) date) unknown) (unknown) (no (unknown) (unknown) Urine Appearance Clear (units (unknown) date) Last Edit by Angy unknown) J LUIS Kim on 05/05/22 09:31 (unknown) (no (unknown) (unknown) Urine Bilirubin Negative (units (unknown) date) Last Edit by Angy unknown) J LUIS Kim on 05/05/22 09:31 (unknown) (no (unknown) (unknown) Urine Blood Negative (units (unknown) date) Last Edit by Angy unknown) J LUIS Kim on 05/05/22 09:31 (unknown) (no (unknown) (unknown) Urine Color Shanelle (units (unknown) date) Last Edit by Angy unknown) J LUIS Kim on 05/05/22 09:31 (unknown) (no (unknown) (unknown) Urine Glucose Negative (u nits (unknown) date) mg/dL Last Edit by Angy un known) J LUIS Kim on 05/05/22 09 (unknown) (no (unknown) (unknown) Urine Ketones Negative (units (unknown) date) Last Edit by Angy unknown) J LUIS Kim on 05/05/22 09:31 (unknown) (no (unknown) (unknown) Urine Leukocyte Esterase (units (unknown) date) Negative Last Edit by unkn own) Angy Kim RN on 05/05 (unknown) (no (unknown) (unknown) Urine Nitrate Negative (units (unknown) date) Last Edit by Angy unknown) J LUIS Kim on 05/05/22 09:31 (unknown) (no (unknown) (unknown) Urine Protein Negative (units (unknown) date) Last Edit by Angy unknown) J LUIS Kim on 05/05/22 09:31 (unknown) (no (unknown) (unknown) Urine Specific Elizabeth (u nits (unknown) date) 1.015 Last Edit by unknown ) Angy Kim RN on 05/05/22 (unknown) (no (unknown) (unknown) Urine Urobilinogen - 0.2 (units (unknown) date) mg/dL Last Edit by unknown ) Angy Kim RN on (unknown) (no (unknown) (unknown) Urine pH 6.5 Last (units (unknown) date) Edit by Angy Kim RN un known) on 05/05/22 09:31 (unknown) (no (unknown) (unknown) (1) Postop check: (units (unknown) date) unknown) (unknown) (no (unknown) (unknown) /22 (units (unkno wn) date) unknown) (unknown) (no (unknown) (unknown) 05/05/22 (units (unkno wn) date) unknown) (unknown) (no (unknown) (unknown) 05/05/22] (units (unkn own) date) unknown) (unknown) (no (unknown) (unknown) 09:31 (units (unkno wn) date) unknown) (unknown) (no (unknown) (unknown) 22 (units (unkno wn) date) unknown) (unknown) (no (unknown) (unknown) 71 Y/O F presents to (uni ts (unknown) date) clinic for post operative unkn own) appointment/post void residual (unknown) (no (unknown) (unknown) :31 (units (unkno wn) date) unknown) (unknown) (no (unknown) (unknown) Adverse Reaction (Unknown, (units (unknown) date) Verified 05/05/22 09:14) unkno wn) (unknown) (no (unknown) (unknown) Age/Sex: 71 / F Date of (units (unknown) date) Service: unknown) (unknown) (no (unknown) (unknown) All systems reviewed + are (units (unknown) date) unremarkable except as unknown ) noted in HPI and below (unknown) (no (unknown) (unknown) Allergies (units (unkn own) date) unknown) (unknown) (no (unknown) (unknown) Anxiety (units (unkno wn) date) unknown) (unknown) (no (unknown) (unknown) Arthritis (units (unkn own) date) unknown) (unknown) (no (unknown) (unknown) Assessment + Plan (units (unknown) date) unknown) (unknown) (no (unknown) (unknown) Asthma (units (unkno wn) date) unknown) (unknown) (no (unknown) (unknown) Attending Dr: Jericho (uni ts (unknown) date) Renetta HAINES unknown) (unknown) (no (unknown) (unknown) BP 118/70 (units (u nknown) date) unknown) (unknown) (no (unknown) (unknown) Barretts esophagus (units (unknown) date) unknown) (unknown) (no (unknown) (unknown) Billing- Post Void (units (unknown) date) Residual: Post Void unknown) Residual- 85272 (unknown) (no (unknown) (unknown) Bladder calculi (units (unknown) date) unknown) (unknown) (no (unknown) (unknown) Bladder volume: PVR=68ML (units (unknown) date) unknown) (unknown) (no (unknown) (unknown) Blood Pressure Location ( units (unknown) date) Lt brachial unknown) (unknown) (no (unknown) (unknown) Brother Hypertension (u nits (unknown) date) unknown) (unknown) (no (unknown) (unknown) C) 1 ea PO DAILY 11/02/21 (units (unknown) date) [History Confirmed unknown) 05/05/22] (unknown) (no (unknown) (unknown) Cataract (lens) fragments (units (unknown) date) in eye following cataract unkn own) surgery, bilateral (unknown) (no (unknown) (unknown) Cervical cancer (units (unknown) date) unknown) (unknown) (no (unknown) (unknown) Chief Complaint (units (unknown) date) unknown) (unknown) (no (unknown) (unknown) Chief Complaint: Postop ( units (unknown) date) check unknown) (unknown) (no (unknown) (unknown) Colon polyps (units (u nknown) date) unknown) (unknown) (no (unknown) (unknown) Complications: No (units (unknown) date) unknown) (unknown) (no (unknown) (unknown) Confirmed 05/05/22] (unit s (unknown) date) unknown) (unknown) (no (unknown) (unknown) Consent signed: No (units (unknown) date) unknown) (unknown) (no (unknown) (unknown) Const (units (unkno wn) date) unknown) (unknown) (no (unknown) (unknown) : 1950 (units (unknown) date) Acct:[id number] unknown) (unknown) (no (unknown) (unknown) Depression (units (unk nown) date) unknown) (unknown) (no (unknown) (unknown) Dept at . (u nits (unknown) date) unknown) (unknown) (no (unknown) (unknown) Details: (units (unkno wn) date) unknown) (unknown) (no (unknown) (unknown) Diskus) 1 inh inhalation (units (unknown) date) BID 09/23/21 [History unknown) Confirmed 05/05/22] (unknown) (no (unknown) (unknown) Documented By: (units (unknown) date) Jericho Jackson MD unknown) 05/05/22 0912 (unknown) (no (unknown) (unknown) Esophageal spasm (units (unknown) date) unknown) (unknown) (no (unknown) (unknown) Exam (units (unkno wn) date) unknown) (unknown) (no (unknown) (unknown) Exam Narrative (units (unknown) date) unknown) (unknown) (no (unknown) (unknown) Exam Narrative: (units (unknown) date) unknown) (unknown) (no (unknown) (unknown) Family History (Reviewed (units (unknown) date) 05/05/22 @ 09:53 by Jericho knoxk nown) MD Renetta) (unknown) (no (unknown) (unknown) Family/Other Cancer (un its (unknown) date) unknown) (unknown) (no (unknown) (unknown) Father Congestive heart (units (unknown) date) failure unknown) (unknown) (no (unknown) (unknown) Foreign body in bladder ( units (unknown) date) and urethra unknown) (unknown) (no (unknown) (unknown) Grandfather Congestive (units (unknown) date) heart failure unknown) (unknown) (no (unknown) (unknown) Grandmother Congestive (units (unknown) date) heart failure unknown) (unknown) (no (unknown) (unknown) HPI (units (unkno wn) date) unknown) (unknown) (no (unknown) (unknown) History of bladder surgery (units (unknown) date) (-2007) unknown) (unknown) (no (unknown) (unknown) History of bladder (units (unknown) date) suspension procedure unknown) (unknown) (no (unknown) (unknown) History of cholecystectomy (units (unknown) date) unknown) (unknown) (no (unknown) (unknown) History of colonoscopy (u nits (unknown) date) unknown) (unknown) (no (unknown) (unknown) History of (units (unk nown) date) esophagogastroduodenoscopy unk nown) (EGD) (unknown) (no (unknown) (unknown) History of migraine (unit s (unknown) date) unknown) (unknown) (no (unknown) (unknown) History of recurrent UTI (units (unknown) date) (urinary tract infection) unkn own) (unknown) (no (unknown) (unknown) History of total abdominal (units (unknown) date) hysterectomy and bilateral unk nown) salpingo-oophorectomy (unknown) (no (unknown) (unknown) History of total knee (un its (unknown) date) arthroplasty unknown) (unknown) (no (unknown) (unknown) Hx of cystoscopy (units (unknown) date) (11/23/21) unknown) (unknown) (no (unknown) (unknown) Hyperlipidemia (units (unknown) date) unknown) (unknown) (no (unknown) (unknown) Hypertension (units (u nknown) date) unknown) (unknown) (no (unknown) (unknown) Informed consent given: No (units (unknown) date) unknown) (unknown) (no (unknown) (unknown) Intake (units (unkno wn) date) unknown) (unknown) (no (unknown) (unknown) Intake Note: (units (u nknown) date) unknown) (unknown) (no (unknown) (unknown) Intake performed by: (uni ts (unknown) date) Angy Kim unknown) (unknown) (no (unknown) (unknown) Intake- Clincial Staff (u nits (unknown) date) unknown) (unknown) (no (unknown) (unknown) Last Menstural Cycle + (u nits (unknown) date) Details unknown) (unknown) (no (unknown) (unknown) Elen returns today for ( units (unknown) date) follow-up recurrent unknown) Klebsiella oxytoca UTI and status (unknown) (no (unknown) (unknown) Loc: [facility] (units (unkno wn) date) unknown) (unknown) (no (unknown) (unknown) Lower urinary tract (unit s (unknown) date) symptoms (LUTS) unknown) (unknown) (no (unknown) (unknown) Malaise and fatigue (unit s (unknown) date) unknown) (unknown) (no (unknown) (unknown) Medical History (Reviewed (units (unknown) date) 05/05/22 @ 09:53 by Jericho Jackson MD) (unknown) (no (unknown) (unknown) Medications (units (un known) date) unknown) (unknown) (no (unknown) (unknown) New (units (unkno wn) date) unknown) (unknown) (no (unknown) (unknown) Not repeated today. (unit s (unknown) date) unknown) (unknown) (no (unknown) (unknown) Office Procedures (units (unknown) date) unknown) (unknown) (no (unknown) (unknown) Orders (units (unkno wn) date) unknown) (unknown) (no (unknown) (unknown) Other Menstrual Period: ( units (unknown) date) Postmenopausal unknown) (unknown) (no (unknown) (unknown) Overall, she reports a (u nits (unknown) date) smooth an excellent unknown) recovery. She denies dysuria, (unknown) (no (unknown) (unknown) Oxygen Delivery Method (u nits (unknown) date) room air unknown) (unknown) (no (unknown) (unknown) PFSH (units (unkno wn) date) unknown) (unknown) (no (unknown) (unknown) POC Urine Dip Today R30.0 (units (unknown) date) - Dysuria unknown) (unknown) (no (unknown) (unknown) Pain 10/02/18 [History (u nits (unknown) date) Confirmed 05/05/22] unknown) (unknown) (no (unknown) (unknown) Palpitations (units (u nknown) date) unknown) (unknown) (no (unknown) (unknown) Patient: White (units (unknown) date) Elen Sargent S M unknown) (unknown) (no (unknown) (unknown) Patulous eustachian tube (units (unknown) date) of left ear unknown) (unknown) (no (unknown) (unknown) Pelvic relaxation (units (unknown) date) unknown) (unknown) (no (unknown) (unknown) Photos taken: No (units (unknown) date) unknown) (unknown) (no (unknown) (unknown) Position Sitting (unit s (unknown) date) unknown) (unknown) (no (unknown) (unknown) Postmenopausal (units (unknown) date) unknown) (unknown) (no (unknown) (unknown) Postmenopausal atrophic ( units (unknown) date) vaginitis unknown) (unknown) (no (unknown) (unknown) Procedure performed by: ( units (unknown) date) Angy Kim unknown) (unknown) (no (unknown) (unknown) Pulse 80 (units (un known) date) unknown) (unknown) (no (unknown) (unknown) Pulse Oximetry (%) 97 (units (unknown) date) unknown) (unknown) (no (unknown) (unknown) Pulse Source Monitor ( units (unknown) date) unknown) (unknown) (no (unknown) (unknown) R#: [id number] (units (unknown) date) unknown) (unknown) (no (unknown) (unknown) ROS (units (unkno wn) date) unknown) (unknown) (no (unknown) (unknown) Reason For Visit (units (unknown) date) unknown) (unknown) (no (unknown) (unknown) Residual: post void (unit s (unknown) date) unknown) (unknown) (no (unknown) (unknown) Respiration 16 (units (unknown) date) unknown) (unknown) (no (unknown) (unknown) Results (units (unkno wn) date) unknown) (unknown) (no (unknown) (unknown) S/P right knee arthroscopy (units (unknown) date) unknown) (unknown) (no (unknown) (unknown) Signed By: (units (unk nown) date) unknown) (unknown) (no (unknown) (unknown) Sister Hypertension (un its (unknown) date) unknown) (unknown) (no (unknown) (unknown) Smoking Status: Never (u nits (unknown) date) smoker unknown) (unknown) (no (unknown) (unknown) Smoking Status: Never (un its (unknown) date) smoker unknown) (unknown) (no (unknown) (unknown) Social History (Reviewed (units (unknown) date) 05/05/22 @ 09:53 by Jericho Jackson MD) (unknown) (no (unknown) (unknown) Ajbtmvl-YJM-YsV Reductase (units (unknown) date) Inhibitor [Yckjdbb-Zpu-Ksy unk n) Reductase Inhibitor] (unknown) (no (unknown) (unknown) Status post surgery (unit s (unknown) date) (10/08/18) unknown) (unknown) (no (unknown) (unknown) Surgical History (Reviewed (units (unknown) date) 05/05/22 @ 09:53 by Jericho boston) MD Renetta) (unknown) (no (unknown) (unknown) This note may have been ( units (unknown) date) all or partially generated jelani boston) using voice recognition (unknown) (no (unknown) (unknown) Tobacco Status (units (unknown) date) unknown) (unknown) (no (unknown) (unknown) Urine Dipstick (units (unknown) date) unknown) (unknown) (no (unknown) (unknown) Uterine cancer (units (unknown) date) unknown) (unknown) (no (unknown) (unknown) Vaginal pain (units (u nknown) date) unknown) (unknown) (no (unknown) (unknown) Visit Reasons: post-op (u nits (unknown) date) appt/PVR + review pathology un known) (unknown) (no (unknown) (unknown) Vitals (units (unkno wn) date) unknown) (unknown) (no (unknown) (unknown) Z09 - Encounter for (unit s (unknown) date) follow-up examination after un known) completed treatment for (unknown) (no (unknown) (unknown) [FISH OIL] 1 cap PO DAILY (units (unknown) date) ##0 07/13/11 [History unknown) Confirmed 05/05/22] (unknown) (no (unknown) (unknown) [History Confirmed (units (unknown) date) 05/05/22] unknown) (unknown) (no (unknown) (unknown) [Rx Confirmed 05/05/22] ( units (unknown) date) unknown) (unknown) (no (unknown) (unknown) [VITAMIN D] 1 cap PO DAILY (units (unknown) date) ##0 07/13/11 [History unknown) Confirmed 05/05/22] (unknown) (no (unknown) (unknown) alcohol intake: current (units (unknown) date) unknown) (unknown) (no (unknown) (unknown) amlodipine 2.5 mg tablet (units (unknown) date) 2.5 mg PO DAILY 09/14/21 unkno wn) [History Confirmed 05/05/22] (unknown) (no (unknown) (unknown) amoxicillin 500 mg t.i.d. (units (unknown) date) for dental pain and unknown) probable need for a revised left (unknown) (no (unknown) (unknown) and pathology review (uni ts (unknown) date) unknown) (unknown) (no (unknown) (unknown) and today. During (units (unknown) date) postoperative. She is unknown ) continued on nitrofurantoin 100 mg (unknown) (no (unknown) (unknown) ascorbic acid 1,000 (unit s (unknown) date) lp-wwymifptgdje-xlgszaip unkno wn) powder effervescent pack (Emergen- (unknown) (no (unknown) (unknown) aspirin 81 mg (units ( unknown) date) tablet,delayed release 81 unkn own) mg PO DAILY 10/01/18 [History Confirmed (unknown) (no (unknown) (unknown) atorvastatin Adverse (uni ts (unknown) date) Reaction (Intermediate, unknow n) Verified 05/05/22 09:14) (unknown) (no (unknown) (unknown) bupropion HCl 75 mg tablet (units (unknown) date) 75 mg PO BID 09/14/21 unknown) [History Confirmed 05/05/22] (unknown) (no (unknown) (unknown) alfziwtaet-okzknlhyfbbzi-k (units (unknown) date) affeine 50 mg-325 mg-40 mg unk nown) tablet 1 tab PO Q4H PRN (unknown) (no (unknown) (unknown) cephalexin Adverse (units (unknown) date) Reaction (Mild, Verified unkno wn) 05/05/22 09:14) (unknown) (no (unknown) (unknown) citalopram 40 mg tablet ( units (unknown) date) (Celexa) 40 mg PO DAILY unknow n) 07/18/18 [History Confirmed (unknown) (no (unknown) (unknown) codeine Adverse Reaction (units (unknown) date) (Intermediate, Verified unknow n) 05/05/22 09:14) (unknown) (no (unknown) (unknown) coenzyme Q10 50 mg capsule (units (unknown) date) 50 mg PO BID 11/02/21 unknown) [History Confirmed 05/05/22] (unknown) (no (unknown) (unknown) conditions other than (un its (unknown) date) malignant neoplasm unknown) (unknown) (no (unknown) (unknown) cranberry extract 650 mg (units (unknown) date) capsule 650 mg PO DAILY unknow n) 11/02/21 [History Confirmed (unknown) (no (unknown) (unknown) cyanocobalamin (vitamin ( units (unknown) date) B-12) 500 mcg tablet 1,500 unk nown) mcg PO DAILY 10/02/18 (unknown) (no (unknown) (unknown) d-mannose PO BID 11/02/21 (units (unknown) date) [History Confirmed unknown) 05/05/22] (unknown) (no (unknown) (unknown) estradiol 0.1 mg/24 hr (u nits (unknown) date) semiweekly transdermal unknown ) patch 1 mg topical 2XW 09/14/21 (unknown) (no (unknown) (unknown) fexofenadine 180 mg tablet (units (unknown) date) 180 mg PO DAILY 11/02/21 unkno wn) [History Confirmed 05/05/22] (unknown) (no (unknown) (unknown) flaxseed oil PO DAILY (un its (unknown) date) 11/02/21 [History Confirmed un known) 05/05/22] (unknown) (no (unknown) (unknown) fluconazole (Diflucan) (u nits (unknown) date) unknown) (unknown) (no (unknown) (unknown) fluconazole 150 mg tablet (units (unknown) date) (Diflucan) 150 mg PO ONCE unkn own) #1 tab 05/05/22 [Rx (unknown) (no (unknown) (unknown) fluticasone 100 (units (unknown) date) mcg-salmeterol 50 mcg/dose unk nown) blistr powdr for inhalation (Advair (unknown) (no (unknown) (unknown) fluticasone propionate 50 (units (unknown) date) mcg/actuation nasal unknown) spray,suspension 1 spray (unknown) (no (unknown) (unknown) getting a vaginal yeast ( units (unknown) date) infection. In recent unknown) interval she has been prescribed (unknown) (no (unknown) (unknown) have occurred. If there (units (unknown) date) are any questions, please unkn own) contact the Medical Records (unknown) (no (unknown) (unknown) household members: spouse (units (unknown) date) unknown) (unknown) (no (unknown) (unknown) inhalation DIRECTED (u nits (unknown) date) 07/18/18 [History Confirmed un known) 05/05/22] (unknown) (no (unknown) (unknown) intranasal DAILY 11/02/21 (units (unknown) date) [History Confirmed unknown) 05/05/22] (unknown) (no (unknown) (unknown) levalbuterol HCl 0.31 mg/3 (units (unknown) date) mL solution for unknown) nebulization (Xopenex) 1 dose (unknown) (no (unknown) (unknown) mandibular root canal. (u nits (unknown) date) She has seen the dentist unkno kwasi) today. The prescription will (unknown) (no (unknown) (unknown) may occur. Occasional (u nits (unknown) date) wrong-word or 'sound-alike' un known) substitutions may have (unknown) (no (unknown) (unknown) morphine Adverse Reaction (units (unknown) date) (Severe, Verified 05/05/22 unk nown) 09:14) (unknown) (no (unknown) (unknown) multivitamin 1 tab PO (un its (unknown) date) DAILY 10/02/18 [History unknow n) Confirmed 05/05/22] (unknown) (no (unknown) (unknown) nitrofurantoin (units (unknown) date) macrocrystal 100 mg capsule un known) 100 mg PO BEDTIME #60 caps 03/15/22 (unknown) (no (unknown) (unknown) occurred due to the (unit s (unknown) date) inherent limitations of unknow n) voice recognition software. Please (unknown) (no (unknown) (unknown) p.o. at HS. Urinalysis ( units (unknown) date) today is clear. unknown) (unknown) (no (unknown) (unknown) post transurethral (units (unknown) date) resection of eroded bladder un known) neck bulking agent 03/18/2022. (unknown) (no (unknown) (unknown) potassium 99 mg tablet 99 (units (unknown) date) mg PO DAILY 11/02/21 unknown) [History Confirmed 05/05/22] (unknown) (no (unknown) (unknown) probiotic PO DAILY (units (unknown) date) 11/02/21 [History Confirmed un known) 05/05/22] (unknown) (no (unknown) (unknown) psyllium husk 0.4 gram (u nits (unknown) date) capsule (Fiber (psyllium unkno wn) husk)) 0.4 g PO BID 11/02/21 (unknown) (no (unknown) (unknown) read the note carefully ( units (unknown) date) and recognize, using unknown) context, where these substitutions (unknown) (no (unknown) (unknown) software. 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 She does have unkn own) complaint and concerned that she is (unknown) (no (unknown) (unknown) zinc acetate 50 mg (zinc) (units (unknown) date) capsule (Galzin) 50 mg PO unkn own) DAILY 11/02/21 [History Result panel 6 (unknown) (no (unknown) (unknown) (no value) (units (unk nown) date) unknown) (unknown) (no (unknown) (unknown) Code(s): (units (unkno wn) date) unknown) (unknown) (no (unknown) (unknown) Medications: (units (u nknown) date) unknown) (unknown) (no (unknown) (unknown) Orders: (units (unkno wn) date) unknown) (unknown) (no (unknown) (unknown) Status: Acute (units ( unknown) date) unknown) (unknown) (no (unknown) (unknown) (no value) (units (unk nown) date) unknown) (unknown) (no (unknown) (unknown) 05/05/22 (units (unkno wn) date) unknown) (unknown) (no (unknown) (unknown) 05/05/22 1003 (units ( unknown) date) unknown) (unknown) (no (unknown) (unknown) 09:30 (units (unkno wn) date) unknown) (unknown) (no (unknown) (unknown) ABDOMINAL CRAMPING, LOC ( units (unknown) date) unknown) (unknown) (no (unknown) (unknown) [place] [id number] (unit s (unknown) date) unknown) (unknown) (no (unknown) (unknown) Cancer (units (unkno wn) date) unknown) (unknown) (no (unknown) (unknown) Diabetes mellitus (units (unknown) date) unknown) (unknown) (no (unknown) (unknown) HIVES (units (unkno wn) date) unknown) (unknown) (no (unknown) (unknown) [facility] (units (unknown) date) unknown) (unknown) (no (unknown) (unknown) MUSCLE ACHES (units (u nknown) date) unknown) (unknown) (no (unknown) (unknown) Myalgias (units (unkno wn) date) unknown) (unknown) (no (unknown) (unknown) N+V (units (unkno wn) date) unknown) (unknown) (no (unknown) (unknown) Signed (units (unkno wn) date) unknown) (unknown) (no (unknown) (unknown) Urology Office Visit (uni ts (unknown) date) unknown) (unknown) (no (unknown) (unknown) as a single dose 150 mg ( units (unknown) date) PO ONCE 1 tab 0RF unknown) (unknown) (no (unknown) (unknown) (no value) (units (unk nown) date) unknown) (unknown) (no (unknown) (unknown) Urine Appearance Clear (units (unknown) date) Last Edit by Angy unknown) J LUIS Kim on 05/05/22 09:31 (unknown) (no (unknown) (unknown) Urine Bilirubin Negative (units (unknown) date) Last Edit by Angy unknown) J LUIS Kim on 05/05/22 09:31 (unknown) (no (unknown) (unknown) Urine Blood Negative (units (unknown) date) Last Edit by Angy unknown) J LUIS Kim on 05/05/22 09:31 (unknown) (no (unknown) (unknown) Urine Color Shanelle (units (unknown) date) Last Edit by Angy unknown) J LUIS Kim on 05/05/22 09:31 (unknown) (no (unknown) (unknown) Urine Glucose Negative (u nits (unknown) date) mg/dL Last Edit by Angy un known) J LUIS Kim on 05/05/22 09 (unknown) (no (unknown) (unknown) Urine Ketones Negative (units (unknown) date) Last Edit by Angy unknown) J LUIS Kim on 05/05/22 09:31 (unknown) (no (unknown) (unknown) Urine Leukocyte Esterase (units (unknown) date) Negative Last Edit by unkn own) Angy Kim RN on 05/05 (unknown) (no (unknown) (unknown) Urine Nitrate Negative (units (unknown) date) Last Edit by Angy unknown) J LUIS Kim on 05/05/22 09:31 (unknown) (no (unknown) (unknown) Urine Protein Negative (units (unknown) date) Last Edit by Angy unknown) J LUIS Kim on 05/05/22 09:31 (unknown) (no (unknown) (unknown) Urine Specific Elizabeth (u nits (unknown) date) 1.015 Last Edit by unknown ) Angy Kim RN on 05/05/22 (unknown) (no (unknown) (unknown) Urine Urobilinogen - 0.2 (units (unknown) date) mg/dL Last Edit by unknown ) Angy Kim RN on 05/05/ (unknown) (no (unknown) (unknown) Urine pH 6.5 Last (units (unknown) date) Edit by Angy Kim RN un known) on 05/05/22 09:31 (unknown) (no (unknown) (unknown) (1) Postop check: (units (unknown) date) unknown) (unknown) (no (unknown) (unknown) (units (unkno wn) date) unknown) (unknown) (no (unknown) (unknown) 05/05/22 (units (unkno wn) date) unknown) (unknown) (no (unknown) (unknown) 05/05/22] (units (unkn own) date) unknown) (unknown) (no (unknown) (unknown) 09:31 (units (unkno wn) date) unknown) (unknown) (no (unknown) (unknown) 1. Return to [place] (unit s (unknown) date) urology as needed or for unkno wn) new concern. (unknown) (no (unknown) (unknown) 2. Patient is instructed (units (unknown) date) to hold nitrofurantoin unknown ) prophylaxis and till current (unknown) (no (unknown) (unknown) 22 (units (unkno wn) date) unknown) (unknown) (no (unknown) (unknown) 3. Rx Diflucan 150 mg p.o. (units (unknown) date) x1 tablet. Common side unknow n) effects, precautions, and (unknown) (no (unknown) (unknown) 71 Y/O F presents to (uni ts (unknown) date) clinic for post operative unkn own) appointment/post void residual (unknown) (no (unknown) (unknown) :31 (units (unkno wn) date) unknown) (unknown) (no (unknown) (unknown) Adverse Reaction (Unknown, (units (unknown) date) Verified 05/05/22 09:14) unkno wn) (unknown) (no (unknown) (unknown) Age/Sex: 71 / F Date of (units (unknown) date) Service: unknown) (unknown) (no (unknown) (unknown) All systems reviewed + are (units (unknown) date) unremarkable except as unknown ) noted in HPI and below (unknown) (no (unknown) (unknown) Allergies (units (unkn own) date) unknown) (unknown) (no (unknown) (unknown) Anxiety (units (unkno wn) date) unknown) (unknown) (no (unknown) (unknown) Arthritis (units (unkn own) date) unknown) (unknown) (no (unknown) (unknown) Assessment + Plan (units (unknown) date) unknown) (unknown) (no (unknown) (unknown) Asthma (units (unkno wn) date) unknown) (unknown) (no (unknown) (unknown) Attending Isai Echavarria (uni ts (unknown) date) Renetta HAINES unknown) (unknown) (no (unknown) (unknown) BP 118/70 (units (u nknown) date) unknown) (unknown) (no (unknown) (unknown) Barretts esophagus (units (unknown) date) unknown) (unknown) (no (unknown) (unknown) Billing- Post Void (units (unknown) date) Residual: Post Void unknown) Residual- 80386 (unknown) (no (unknown) (unknown) Bladder calculi (units (unknown) date) unknown) (unknown) (no (unknown) (unknown) Bladder volume: PVR=68ML (units (unknown) date) unknown) (unknown) (no (unknown) (unknown) Blood Pressure Location ( units (unknown) date) Lt brachial unknown) (unknown) (no (unknown) (unknown) Brother Hypertension (u nits (unknown) date) unknown) (unknown) (no (unknown) (unknown) C) 1 ea PO DAILY 11/02/21 (units (unknown) date) [History Confirmed unknown) 05/05/22] (unknown) (no (unknown) (unknown) Cataract (lens) fragments (units (unknown) date) in eye following cataract unkn own) surgery, bilateral (unknown) (no (unknown) (unknown) Cervical cancer (units (unknown) date) unknown) (unknown) (no (unknown) (unknown) Chief Complaint (units (unknown) date) unknown) (unknown) (no (unknown) (unknown) Chief Complaint: Postop ( units (unknown) date) check unknown) (unknown) (no (unknown) (unknown) Colon polyps (units (u nknown) date) unknown) (unknown) (no (unknown) (unknown) Complications: No (units (unknown) date) unknown) (unknown) (no (unknown) (unknown) Confirmed 05/05/22] (unit s (unknown) date) unknown) (unknown) (no (unknown) (unknown) Consent signed: No (units (unknown) date) unknown) (unknown) (no (unknown) (unknown) Const (units (unkno wn) date) unknown) (unknown) (no (unknown) (unknown) : 1950 (units (unknown) date) Acct:[id number] unknown) (unknown) (no (unknown) (unknown) Depression (units (unk nown) date) unknown) (unknown) (no (unknown) (unknown) Dept at . (u nits (unknown) date) unknown) (unknown) (no (unknown) (unknown) Details: (units (unkno wn) date) unknown) (unknown) (no (unknown) (unknown) Diskus) 1 inh inhalation (units (unknown) date) BID 09/23/21 [History unknown) Confirmed 05/05/22] (unknown) (no (unknown) (unknown) Documented By: (units (unknown) date) Jericho Jackson MD unknown) 05/05/22 0912 (unknown) (no (unknown) (unknown) Esophageal spasm (units (unknown) date) unknown) (unknown) (no (unknown) (unknown) Exam (units (unkno wn) date) unknown) (unknown) (no (unknown) (unknown) Exam Narrative (units (unknown) date) unknown) (unknown) (no (unknown) (unknown) Exam Narrative: (units (unknown) date) unknown) (unknown) (no (unknown) (unknown) Family History (Reviewed (units (unknown) date) 05/05/22 @ 09:53 by Jericho knoxk nowdangelo) MD Renetta) (unknown) (no (unknown) (unknown) Family/Other Cancer (un its (unknown) date) unknown) (unknown) (no (unknown) (unknown) Father Congestive heart (units (unknown) date) failure unknown) (unknown) (no (unknown) (unknown) Foreign body in bladder ( units (unknown) date) and urethra unknown) (unknown) (no (unknown) (unknown) Grandfather Congestive (units (unknown) date) heart failure unknown) (unknown) (no (unknown) (unknown) Grandmother Congestive (units (unknown) date) heart failure unknown) (unknown) (no (unknown) (unknown) HPI (units (unkno wn) date) unknown) (unknown) (no (unknown) (unknown) History of bladder surgery (units (unknown) date) (-2007) unknown) (unknown) (no (unknown) (unknown) History of bladder (units (unknown) date) suspension procedure unknown) (unknown) (no (unknown) (unknown) History of cholecystectomy (units (unknown) date) unknown) (unknown) (no (unknown) (unknown) History of colonoscopy (u nits (unknown) date) unknown) (unknown) (no (unknown) (unknown) History of (units (unk nown) date) esophagogastroduodenoscopy unk nown) (EGD) (unknown) (no (unknown) (unknown) History of migraine (unit s (unknown) date) unknown) (unknown) (no (unknown) (unknown) History of recurrent UTI (units (unknown) date) (urinary tract infection) unkn own) (unknown) (no (unknown) (unknown) History of total abdominal (units (unknown) date) hysterectomy and bilateral unk nown) salpingo-oophorectomy (unknown) (no (unknown) (unknown) History of total knee (un its (unknown) date) arthroplasty unknown) (unknown) (no (unknown) (unknown) Hx of cystoscopy (units (unknown) date) (11/23/21) unknown) (unknown) (no (unknown) (unknown) Hyperlipidemia (units (unknown) date) unknown) (unknown) (no (unknown) (unknown) Hypertension (units (u nknown) date) unknown) (unknown) (no (unknown) (unknown) Informed consent given: No (units (unknown) date) unknown) (unknown) (no (unknown) (unknown) Intake (units (unkno wn) date) unknown) (unknown) (no (unknown) (unknown) Intake Note: (units (u nknown) date) unknown) (unknown) (no (unknown) (unknown) Intake performed by: (uni ts (unknown) date) Angy Kim unknown) (unknown) (no (unknown) (unknown) Intake- Clincial Staff (u nits (unknown) date) unknown) (unknown) (no (unknown) (unknown) Last Menstural Cycle + (u nits (unknown) date) Details unknown) (unknown) (no (unknown) (unknown) Elen returns today for ( units (unknown) date) follow-up recurrent unknown) Klebsiella oxytoca UTI and status (unknown) (no (unknown) (unknown) Loc: [facility] (units (unkno wn) date) unknown) (unknown) (no (unknown) (unknown) Lower urinary tract (unit s (unknown) date) symptoms (LUTS) unknown) (unknown) (no (unknown) (unknown) Malaise and fatigue (unit s (unknown) date) unknown) (unknown) (no (unknown) (unknown) Medical History (Reviewed (units (unknown) date) 05/05/22 @ 09:53 by Jericho boston) MD Renetta) (unknown) (no (unknown) (unknown) Medications (units (un known) date) unknown) (unknown) (no (unknown) (unknown) New (units (unkno wn) date) unknown) (unknown) (no (unknown) (unknown) Not repeated today. (unit s (unknown) date) unknown) (unknown) (no (unknown) (unknown) Office Procedures (units (unknown) date) unknown) (unknown) (no (unknown) (unknown) Orders (units (unkno wn) date) unknown) (unknown) (no (unknown) (unknown) Other Menstrual Period: ( units (unknown) date) Postmenopausal unknown) (unknown) (no (unknown) (unknown) Oxygen Delivery Method (u nits (unknown) date) room air unknown) (unknown) (no (unknown) (unknown) PFSH (units (unkno wn) date) unknown) (unknown) (no (unknown) (unknown) POC Urine Dip Today R30.0 (units (unknown) date) - Dysuria unknown) (unknown) (no (unknown) (unknown) Pain 10/02/18 [History (u nits (unknown) date) Confirmed 05/05/22] unknown) (unknown) (no (unknown) (unknown) Palpitations (units (u nknown) date) unknown) (unknown) (no (unknown) (unknown) Pathology report is (unit s (unknown) date) reviewed with patient unknown) today. It demonstrates findings (unknown) (no (unknown) (unknown) Patient: White (units (unknown) date) ArieElen S M unknown) (unknown) (no (unknown) (unknown) Patulous eustachian tube (units (unknown) date) of left ear unknown) (unknown) (no (unknown) (unknown) Pelvic relaxation (units (unknown) date) unknown) (unknown) (no (unknown) (unknown) Photos taken: No (units (unknown) date) unknown) (unknown) (no (unknown) (unknown) Plan (units (unkno wn) date) unknown) (unknown) (no (unknown) (unknown) Position Sitting (unit s (unknown) date) unknown) (unknown) (no (unknown) (unknown) Postmenopausal (units (unknown) date) unknown) (unknown) (no (unknown) (unknown) Postmenopausal atrophic ( units (unknown) date) vaginitis unknown) (unknown) (no (unknown) (unknown) Procedure performed by: ( units (unknown) date) Angy Kim unknown) (unknown) (no (unknown) (unknown) Pulse 80 (units (un known) date) unknown) (unknown) (no (unknown) (unknown) Pulse Oximetry (%) 97 (units (unknown) date) unknown) (unknown) (no (unknown) (unknown) Pulse Source Monitor ( units (unknown) date) unknown) (unknown) (no (unknown) (unknown) R#: [id number] (units (unknown) date) unknown) (unknown) (no (unknown) (unknown) ROS (units (unkno wn) date) unknown) (unknown) (no (unknown) (unknown) Reason For Visit (units (unknown) date) unknown) (unknown) (no (unknown) (unknown) Residual: post void (unit s (unknown) date) unknown) (unknown) (no (unknown) (unknown) Respiration 16 (units (unknown) date) unknown) (unknown) (no (unknown) (unknown) Results (units (unkno wn) date) unknown) (unknown) (no (unknown) (unknown) Reviewed findings, (units (unknown) date) discussed impression, and unkn own) above follow-up and medication (unknown) (no (unknown) (unknown) S/P right knee arthroscopy (units (unknown) date) unknown) (unknown) (no (unknown) (unknown) She does have complaint ( units (unknown) date) and concerned that she is unkn own) getting a vaginal yeast (unknown) (no (unknown) (unknown) Signed By: (units (unk nown) date) <Electronically signed by unkn own) Jerihco Jackson MD> (unknown) (no (unknown) (unknown) Sister Hypertension (un its (unknown) date) unknown) (unknown) (no (unknown) (unknown) Smoking Status: Never (u nits (unknown) date) smoker unknown) (unknown) (no (unknown) (unknown) Smoking Status: Never (un its (unknown) date) smoker unknown) (unknown) (no (unknown) (unknown) Social History (Reviewed (units (unknown) date) 05/05/22 @ 09:53 by Jericho boston) MD Renetta) (unknown) (no (unknown) (unknown) Oscxlhh-SAP-PbV Reductase (units (unknown) date) Inhibitor [Nsulmic-Jjk-Qzu unk thomasn) Reductase Inhibitor] (unknown) (no (unknown) (unknown) Status post surgery (unit s (unknown) date) (10/08/18) unknown) (unknown) (no (unknown) (unknown) Surgical History (Reviewed (units (unknown) date) 05/05/22 @ 09:53 by Jericho boston) MD Renetta) (unknown) (no (unknown) (unknown) This note may have been ( units (unknown) date) all or partially generated jelani boston) using voice recognition (unknown) (no (unknown) (unknown) Tobacco Status (units (unknown) date) unknown) (unknown) (no (unknown) (unknown) Urinalysis today is clear. (units (unknown) date) unknown) (unknown) (no (unknown) (unknown) Urine Dipstick (units (unknown) date) unknown) (unknown) (no (unknown) (unknown) Uterine cancer (units (unknown) date) unknown) (unknown) (no (unknown) (unknown) Vaginal pain (units (u nknown) date) unknown) (unknown) (no (unknown) (unknown) Visit Reasons: post-op (u nits (unknown) date) appt/PVR + review pathology un known) (unknown) (no (unknown) (unknown) Vitals (units (unkno wn) date) unknown) (unknown) (no (unknown) (unknown) Z09 - Encounter for (unit s (unknown) date) follow-up examination after un known) completed treatment for (unknown) (no (unknown) (unknown) [FISH OIL] 1 cap PO DAILY (units (unknown) date) ##0 07/13/11 [History unknown) Confirmed 05/05/22] (unknown) (no (unknown) (unknown) [History Confirmed (units (unknown) date) 05/05/22] unknown) (unknown) (no (unknown) (unknown) [Rx Confirmed 05/05/22] ( units (unknown) date) unknown) (unknown) (no (unknown) (unknown) [VITAMIN D] 1 cap PO DAILY (units (unknown) date) ##0 07/13/11 [History unknown) Confirmed 05/05/22] (unknown) (no (unknown) (unknown) alcohol intake: current (units (unknown) date) unknown) (unknown) (no (unknown) (unknown) amlodipine 2.5 mg tablet (units (unknown) date) 2.5 mg PO DAILY 09/14/21 unkno wn) [History Confirmed 05/05/22] (unknown) (no (unknown) (unknown) and pathology review (uni ts (unknown) date) unknown) (unknown) (no (unknown) (unknown) and/or future antibiotics (units (unknown) date) prescribed for dental unknown) indications is completed. The (unknown) (no (unknown) (unknown) ascorbic acid 1,000 (unit s (unknown) date) dq-afzantlrsiht-itykytbi unkno wn) powder effervescent pack (Emergen- (unknown) (no (unknown) (unknown) aspirin 81 mg (units ( unknown) date) tablet,delayed release 81 unkn own) mg PO DAILY 10/01/18 [History Confirmed (unknown) (no (unknown) (unknown) atorvastatin Adverse (uni ts (unknown) date) Reaction (Intermediate, unknow n) Verified 05/05/22 09:14) (unknown) (no (unknown) (unknown) ay occur. Occasional (un its (unknown) date) wrong-word or 'sound-alike' un known) substitutions may have (unknown) (no (unknown) (unknown) bupropion HCl 75 mg tablet (units (unknown) date) 75 mg PO BID 09/14/21 unknown) [History Confirmed 05/05/22] (unknown) (no (unknown) (unknown) xauiqdfabq-iukrqwurmajyh-x (units (unknown) date) affeine 50 mg-325 mg-40 mg unk nown) tablet 1 tab PO Q4H PRN (unknown) (no (unknown) (unknown) cephalexin Adverse (units (unknown) date) Reaction (Mild, Verified unkno wn) 05/05/22 09:14) (unknown) (no (unknown) (unknown) citalopram 40 mg tablet ( units (unknown) date) (Celexa) 40 mg PO DAILY unknow n) 07/18/18 [History Confirmed (unknown) (no (unknown) (unknown) codeine Adverse Reaction (units (unknown) date) (Intermediate, Verified unknow n) 05/05/22 09:14) (unknown) (no (unknown) (unknown) coenzyme Q10 50 mg capsule (units (unknown) date) 50 mg PO BID 11/02/21 unknown) [History Confirmed 05/05/22] (unknown) (no (unknown) (unknown) conditions other than (un its (unknown) date) malignant neoplasm unknown) (unknown) (no (unknown) (unknown) consistent with bulking ( units (unknown) date) agent and surrounding unknown) inflammatory changes, including (unknown) (no (unknown) (unknown) cranberry extract 650 mg (units (unknown) date) capsule 650 mg PO DAILY unknow n) 11/02/21 [History Confirmed (unknown) (no (unknown) (unknown) cyanocobalamin (vitamin ( units (unknown) date) B-12) 500 mcg tablet 1,500 unk nown) mcg PO DAILY 10/02/18 (unknown) (no (unknown) (unknown) d-mannose PO BID 11/02/21 (units (unknown) date) [History Confirmed unknown) 05/05/22] (unknown) (no (unknown) (unknown) estradiol 0.1 mg/24 hr (u nits (unknown) date) semiweekly transdermal unknown ) patch 1 mg topical 2XW 09/14/21 (unknown) (no (unknown) (unknown) fexofenadine 180 mg tablet (units (unknown) date) 180 mg PO DAILY 11/02/21 unkno wn) [History Confirmed 05/05/22] (unknown) (no (unknown) (unknown) flaxseed oil PO DAILY (un its (unknown) date) 11/02/21 [History Confirmed un known) 05/05/22] (unknown) (no (unknown) (unknown) fluconazole (Diflucan) (u nits (unknown) date) unknown) (unknown) (no (unknown) (unknown) fluconazole 150 mg tablet (units (unknown) date) (Diflucan) 150 mg PO ONCE unkn own) #1 tab 05/05/22 [Rx (unknown) (no (unknown) (unknown) fluticasone 100 (units (unknown) date) mcg-salmeterol 50 mcg/dose unk nown) blistr powdr for inhalation (Advair (unknown) (no (unknown) (unknown) fluticasone propionate 50 (units (unknown) date) mcg/actuation nasal unknown) spray,suspension 1 spray (unknown) (no (unknown) (unknown) for 3 days beginning today (units (unknown) date) due to reported drug-drug unkn own) interaction with Diflucan. (unknown) (no (unknown) (unknown) for dental pain and (units (unknown) date) probable need for a revised un known) left mandibular root canal. She (unknown) (no (unknown) (unknown) giant cell reaction (unit s (unknown) date) consistent with known unknown) foreign body. Overall, she reports a (unknown) (no (unknown) (unknown) has seen the dentist (uni ts (unknown) date) today. The prescription unkno wn) will and today. During (unknown) (no (unknown) (unknown) have occurred. If there (units (unknown) date) are any questions, please unkn own) contact the Medical Records (unknown) (no (unknown) (unknown) household members: spouse (units (unknown) date) unknown) (unknown) (no (unknown) (unknown) infection. In recent (uni ts (unknown) date) interval she has been unknown) prescribed amoxicillin 500 mg t.i.d. (unknown) (no (unknown) (unknown) inhalation DIRECTED (u nits (unknown) date) 07/18/18 [History Confirmed un known) 05/05/22] (unknown) (no (unknown) (unknown) instructions. (units ( unknown) date) unknown) (unknown) (no (unknown) (unknown) intake instructions (unit s (unknown) date) explained. The patient was un known) instructed to hold citalopram (unknown) (no (unknown) (unknown) intranasal DAILY 11/02/21 (units (unknown) date) [History Confirmed unknown) 05/05/22] (unknown) (no (unknown) (unknown) levalbuterol HCl 0.31 mg/3 (units (unknown) date) mL solution for unknown) nebulization (Xopenex) 1 dose (unknown) (no (unknown) (unknown) morphine Adverse Reaction (units (unknown) date) (Severe, Verified 05/05/22 unk nown) 09:14) (unknown) (no (unknown) (unknown) multivitamin 1 tab PO (un its (unknown) date) DAILY 10/02/18 [History unknow n) Confirmed 05/05/22] (unknown) (no (unknown) (unknown) nitrofurantoin (units (unknown) date) macrocrystal 100 mg capsule un known) 100 mg PO BEDTIME #60 caps 03/15/22 (unknown) (no (unknown) (unknown) occurred due to the (unit s (unknown) date) inherent limitations of unknow n) voice recognition software. Please (unknown) (no (unknown) (unknown) patient is instructed to (units (unknown) date) resume and complete unknown) nitrofurantoin nightly prophylaxis (unknown) (no (unknown) (unknown) post transurethral (units (unknown) date) resection of eroded bladder un known) neck bulking agent 03/18/2022. (unknown) (no (unknown) (unknown) postoperative. She is (u nits (unknown) date) continued on nitrofurantoin un known) 100 mg p.o. at HS. (unknown) (no (unknown) (unknown) potassium 99 mg tablet 99 (units (unknown) date) mg PO DAILY 11/02/21 unknown) [History Confirmed 05/05/22] (unknown) (no (unknown) (unknown) probiotic PO DAILY (units (unknown) date) 11/02/21 [History Confirmed un known) 05/05/22] (unknown) (no (unknown) (unknown) psyllium husk 0.4 gram (u nits (unknown) date) capsule (Fiber (psyllium unkno wn) husk)) 0.4 g PO BID 11/02/21 (unknown) (no (unknown) (unknown) read the note carefully ( units (unknown) date) and recognize, using unknown) context, where these substitutions (unknown) (no (unknown) (unknown) smooth an excellent (unit s (unknown) date) recovery. She denies unknown) dysuria, voiding pain, or hematuria. (unknown) (no (unknown) (unknown) software. 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 (units (un known) date) unknown) (unknown) (no (unknown) (unknown) vitamin B complex (B (uni ts (unknown) date) Complex 1 tablet) 1 tab PO unk nown) DAILY 07/18/18 [History (unknown) (no (unknown) (unknown) zinc acetate 50 mg (zinc) (units (unknown) date) capsule (Galzin) 50 mg PO unkn own) DAILY 11/02/21 [History Social History date description facility (no date) Never smoked tobacco ([facility] Vital Signs date measurement value units +0000 BP_diastolic BP_diastolic 70 mm[H g] +0000 BP_systolic BP_systolic 118 mm[Hg] [id number]+0000 heart_rate heart_rate 80 /min [id number]+0000 respiration_rate respiration_rate 16 /min
[2022-07-17 14:24] LABS: BASOPHILS % (AUTO) 0.3 %; EOSINOPHILS # (AUTO) 0.2 10^3/uL (0.0-0.7); EOSINOPHILS % (AUTO) 1.4 %; HCT - HEMATOCRIT 39.6 % (37.0-47.0); HGB - HEMOGLOBIN 13.4 g/dL (12.0-16.0); LYMPHOCYTES # (AUTO) 2.8 10^3/uL (1.5-3.5); MEAN CORPUSCULAR HEMOGLOBIN 31.5 pg (27.0-31.0); MEAN CORPUSCULAR HGB CONC 33.8 g/dL (32.0-36.0); MEAN PLATELET VOLUME 8.3 fL (7.9-10.8); MONOCYTES # (AUTO) 1.2 10^3/uL (0.0-1.0); NEUTROPHILS # (AUTO) 10.3 10^3/uL (1.5-6.6); NEUTROPHILS % (AUTO) 70.9 %; PLT - PLATELET COUNT 263 10^3/uL (130-450); RED BLOOD COUNT 4.26 10^6/uL (4.20-5.40); WHITE BLOOD COUNT 14.5 x10^3/uL (4.8-10.8)
[2022-07-17] MEDS ORDERED: LEVALBUTEROL 1.25 MG/3 ML NEB INH STA (14:33)
--- NOTE | 2022-07-17 14:36 | ED Physician Documentation ---
History of Present Illness - Stated complaint Stated Complaint: SOA - Chief complaint Chief Complaint: Resp - Additonal information Additional information: 72-year-old female presents emergency department for evaluation of worsening cough and shortness of air. Symptoms began about 1 week ago. She went to local walk-in clinic 5 days ago and was started on a course of prednisone and has been taking it for the last 4 days. Despite this she is dyspneic. She has a cough which is typically nonproductive. No fevers. She has tested negative for COVID twice. Patient does have a history of hypertension and asthma. She uses Levabuterol at home because albuterol makes her too tachycardic. She has never been a smoker. Denies any history of heart disease. Review of Systems Constitutional: denies: Fever, Chills Eyes: reports: Reviewed and negative Nose: reports: Reviewed and negative Throat: reports: Reviewed and negative Cardiac: reports: Palpitations. denies: Pedal edema Respiratory: reports: Dyspnea, Cough. denies: Hemoptysis, Wheezing GI: reports: Reviewed and negative : reports: Reviewed and negative Skin: reports: Reviewed and negative PD PAST MEDICAL HISTORY - Past Medical History Cardiovascular: Hypertension, High cholesterol Respiratory: Asthma Neuro: Headaches GI: GERD WATER QUALITY MANAGER: Uterine cancer : Kidney stones Psych: Depression - Past Surgical History General: Cholecystectomy, Appendectomy, Colonoscopy, EGD Ortho: Knee replacement /WATER QUALITY MANAGER: Hysterectomy, Oophrectomy - Present Medications Home Medications: Ambulatory Orders Medication Instructions Recorded Confirmed Citalopram [CeleXA] 40 mg DAILY 01/29/20 01/29/20 [place]-3/Dha/Epa/Fish Oil [Fish Oil 1 tab BID 01/29/20 01/29/20 1,000 mg Softgel] Pantoprazole [Protonix] 1 tab BID 01/29/20 01/29/20 Potassium Gluconate 1 tab DAILY 01/29/20 01/29/20 Rosuvastatin Calcium 1 tab 01/29/20 Ubidecarenone [Co Q-10] 1 tab DAILY 01/29/20 01/29/20 Ketorolac [Toradol] 10 mg PO Q6H PRN #30 tablet 04/17/21 Azithromycin [Zithromax] 0 mg PO DAILY #6 tablet 07/17/22 - Allergies Allergies/Adverse Reactions: Allergies Allergy/AdvReac Type Severity Reaction Status Date / Time cephalexin [From Keflex] Allergy Unknown Verified 07/17/22 13:19 codeine Allergy Respiratory Verified 07/17/22 13:19 morphine AdvReac Emesis Verified 07/17/22 13:19 - Social History Does the pt smoke?: No Smoking Status: Never smoker Does the pt drink ETOH?: No PD ED PE NORMAL - General General: Alert and oriented X 3, No acute distress, Well developed/nourished - HEENT HEENT: Atraumatic, Moist mucous membranes - Neck Neck: Supple, no meningeal sign, No adenopathy - Cardiac Cardiac: RRR, No murmur - Respiratory Respiratory: No respiratory distress. No: Clear bilaterally (Faint scattered expiratory wheeze but generally clear throughout the lung olivia) - Abdomen Abdomen: Normal bowel sounds, Soft - Back Back: No CVA TTP - Derm Derm: Normal color, Warm and dry - Extremities Extremities: No deformity, No tenderness to palpate, Normal ROM s pain - Neuro Neuro: Alert and oriented X 3 Eye Opening: Spontaneous Motor: Obeys Commands Verbal: Oriented GCS Score: 15 Results - Vitals Vitals: Vital Signs - 24 hr 07/17/22 07/17/22 07/17/22 13:15 14:56 15:11 Temperature 36.8 C Heart Rate 99 88 82 Respiratory 18 18 18 Rate Blood Pressure 112/72 137/69 H O2 Saturation 95 95 Oxygen O2 Source Room air - Labs Labs: Laboratory Tests 07/17/22 07/17/22 14:18 14:18 WBC 14.5 H RBC 4.26 Hgb 13.4 Hct 39.6 MCV 93.0 MCH 31.5 H MCHC 33.8 RDW 12.0 Plt Count 263 MPV 8.3 Neut # (Auto) 10.3 H Lymph # (Auto) 2.8 Riley # (Auto) 1.2 H Eos # (Auto) 0.2 Baso # (Auto) 0.0 Absolute Nucleated RBC 0.00 Nucleated RBC % 0.0 Sodium 136 Potassium 3.6 Chloride 99 L Carbon Dioxide 27 Anion Gap 10.0 BUN 22 H Creatinine 0.8 Estimated GFR (MDRD) 71 L Glucose 90 Calcium 9.9 Total Bilirubin 0.7 AST 28 ALT 59 Alkaline Phosphatase 52 Total Protein 7.0 Albumin 3.9 Globulin 3.1 Albumin/Globulin Ratio 1.3 Lipase 42 - Rads (name of study) cxr Radiology: Final report received (No acute cardiopulmonary process.) PD MEDICAL DECISION MAKING - ED course Complexity details: reviewed results, re-evaluated patient, considered differential, d/w patient ED course: 72-year-old female presents emergency department for evaluation of a nonproductive cough that began about 1 week ago. Has a history of asthma but no tobacco use. She did see a local walk-in provider and was started on a 5-day course of prednisone but despite this does not feel improved. She has had 2 negative COVID test. Today in the emergency department her screening EKG is entirely nonischemic. Her white count does show a moderate leukocytosis with white count of 14,000 however this is likely secondary to recent steroid use. Chest x-ray is without acute focal opacity. Other electrolytes were unremarkable. Patient was given lab albuterol nebulizer at the bedside and feels markedly improved. At home she is using an inhaler without a spacer thus she received spacer education today. Patient will be started on short course of a ntibiotics/azithromycin. Discussed emergent return precautions as well as need to follow-up with PCP Departure - Departure Disposition: Home, Self Care Clinical Impression: Bronchitis Condition: Stable Record reviewed to determine appropriate education?: Yes Prescriptions: Azithromycin [Zithromax] 0 mg PO DAILY #6 tablet Comments: Elen menezes are seen today in the emergency department for a cough that has failed to resolve over the last week despite the use of steroids. Here in the emergency department your chest x-ray was normal. You do have a mildly elevated white blood cell count but this is likely due to using steroids over the last few days. Your EKG is normal for age. I would like to start you on a prescription of antibiotic called azithromycin. This would treat bronchitis. I would also like you to use your inhaler at home 4-6 times a day while your cough is resolving. Please always use a spacer that is the only effective way to make sure you are getting the medication. Please discuss this ED visit with your primary care provider. If at any point you develop worsening shortness of air, have chest pain or fainting episodes and please return immediately to the ER for second evaluation Your prescription has been sent to the [facility]
[2022-07-17 14:37] LABS: ALBUMIN 3.9 g/dL (3.2-5.5); ALBUMIN/GLOBULIN RATIO 1.3 (1.0-2.2); BILIRUBIN,TOTAL 0.7 mg/dL (0.2-1.0); CALCIUM 9.9 mg/dL (8.5-10.3); CREATININE 0.8 mg/dL (0.4-1.0); POTASSIUM 3.6 mmol/L (3.5-5.0)
--- NOTE | 2022-07-17 14:40 | XRAY Report ---
PROCEDURE: Chest 1 View X-Ray INDICATIONS: Chest Pain TECHNIQUE: One view of the chest was acquired. COMPARISON: Chest xray 09/12/21 FINDINGS: Surgical changes and devices: None. Lungs and pleura: No pleural effusions or pneumothorax. Lungs are clear. Mediastinum: Mediastinal contours appear normal. Heart size is normal. Bones and chest wall: No suspicious bony lesions. Overlying soft tissues appear unremarkable. IMPRESSION: No acute pulmonary process. Reviewed by: Negrita Jaeger MD on 07/17/2022 2:39 PM PDT Approved by: Negrita Jaeger MD on 07/17/2022 2:39 PM PDT Station ID: [id number]
[2022-07-17 16:01] VITALS: BP 144/75
== END 2022-07-17 16:11 | disposition home or self-care (01) ==
LOC: ED 13:13
DX: J40 Bronchitis, not specified as acute or chronic (principal)
CPT/HCPCS: 36415; 80053; 83690; 85025; 93005; 94640; 94664; 99284

== ENCOUNTER 2022-07-23 14:51 | Outpatient (CLI) | payer MEDICARE, OTHER ==
[2022-07-23 19:22] LABS: BASOPHILS # (AUTO) 0.1 10^3/uL (0.0-0.1); BASOPHILS % (AUTO) 0.6 %; EOSINOPHILS # (AUTO) 0.3 10^3/uL (0.0-0.7); EOSINOPHILS % (AUTO) 2.7 %; HCT - HEMATOCRIT 38.6 % (37.0-47.0); HGB - HEMOGLOBIN 12.8 g/dL (12.0-16.0); LYMPHOCYTES # (AUTO) 1.7 10^3/uL (1.5-3.5); LYMPHOCYTES % (AUTO) 15.3 %; MEAN CORPUSCULAR HEMOGLOBIN 31.2 pg (27.0-31.0); MEAN CORPUSCULAR HGB CONC 33.2 g/dL (32.0-36.0); MEAN CORPUSCULAR VOLUME 94.1 fL (81.0-99.0); MEAN PLATELET VOLUME 9.1 fL (7.9-10.8); MONOCYTES # (AUTO) 0.9 10^3/uL (0.0-1.0); MONOCYTES % (AUTO) 7.8 %; NEUTROPHILS # (AUTO) 7.9 10^3/uL (1.5-6.6); PLT - PLATELET COUNT 273 10^3/uL (130-450); RED CELL DISTRIBUTION WIDTH 11.9 % (12.0-15.0); WHITE BLOOD COUNT 10.8 x10^3/uL (4.8-10.8)
== END 2022-07-23 23:59 | disposition home or self-care (01) ==
LOC: LAB.N 14:51
PROVIDERS: ATTEND Registered Nurse
DX: D72.829 Elevated white blood cell count, unspecified (principal); J06.9 Acute upper respiratory infection, unspecified; R53.83 Other fatigue; R53.81 Other malaise
CPT/HCPCS: 36415; 85025

== ENCOUNTER 2022-07-27 11:20 | Outpatient (CLI) | payer MEDICARE, OTHER ==
--- NOTE | 2022-07-27 16:21 | XRAY Report ---
PROCEDURE: Chest 2 View X-Ray INDICATIONS: URI TECHNIQUE: 2 views of the chest. COMPARISON: Chest regressed 07/17/2022. FINDINGS: Surgical changes and devices: None. Lungs and pleura: No pleural effusions or pneumothorax. Lungs are clear. Mediastinum: Mediastinal contours are normal. Heart size is normal. Bones and chest wall: No suspicious bony abnormalities. Soft tissues appear unremarkable. IMPRESSION: No acute cardiopulmonary abnormality. Reviewed by: Vladimir Reeves MD on 07/27/2022 4:20 PM PDT Approved by: Vladimir Reeves MD on 07/27/2022 4:20 PM PDT Station ID: [id number]
== END 2022-07-27 11:21 | disposition home or self-care (01) ==
LOC: DI 11:20
PROVIDERS: ATTEND Registered Nurse
DX: J06.9 Acute upper respiratory infection, unspecified (principal)

== ENCOUNTER 2022-09-07 08:04 | Outpatient (CLI) | payer MEDICARE, OTHER ==
--- NOTE | 2022-09-07 10:53 | Mammography Report ---
BILATERAL DIGITAL DIAGNOSTIC MAMMOGRAM 3D/2D WITH AXILLARY TAIL: 09/07/2022 CLINICAL: Palpable right breast lump x2, Palpable left breast lump. Comparison is made to exams dated: 08/26/2021 mammogram, 08/21/2020 mammogram - [facility], 06/20/2019 mammogram, 06/19/2018 mammogram, 05/04/2017 mammogram, and 04/12/2016 mammogram - [facility]. There are scattered areas of fibroglandular density in both breasts (category b / 25%-50% glandular t issue). No significant masses, calcifications, or other findings are seen in either breast. IMPRESSION: INCOMPLETE: NEEDS ADDITIONAL IMAGING EVALUATION There is no mammographic abnormality seen in either breast to correspond with the palpable abnormalit ies, however, targeted ultrasound of the bilateral breasts is recommended and will be performed imme diately following this exam. Based on the Tyrer Cuzick model (a risk assessment model) the patients lifetime risk is 5.4% and her 10 year risk is 4.0%. According to the ACR, ACS, and NCCN guidelines, an annual breast MRI exam alex g with mammogram is recommended if the patients lifetime risk is 20% or greater. This exam was interpreted at Station ID: [id number]. NOTE: For mammograms, a report in lay terms will be sent to the patient. Approximately 15% of breast malignancies will not be visualized mammographically. In the management of a palpable breast mass, a negative mammogram must not discourage biopsy of a clinically suspicious lesion. Electronically Signed By: Uma Valentine M.D. lk/:09/07/2022 08:43:47 ACR BI-RADS Category 0: Incomplete 3340F PARENCHYMAL PATTERN: (A) - The breast(s) demonstrate(s) scattered fibroglandular densities. BI-RADS CATEGORY: (0) - 0 Ultrasound [id number] Immediate follow-up LATERALITY: (B)
--- NOTE | 2022-09-07 10:53 | Ultrasound Report ---
LIMITED ULTRASOUND OF RIGHT BREAST AND AXILLA: 09/07/2022 CLINICAL: Palpable right axilla lump. Comparison is made to exams dated: 09/07/2022 mammogram, 08/26/2021 mammogram, 08/21/2020 mammogram - [facility], 06/20/2019 mammogram, 06/19/2018 mammogram, and 05/04/2017 mammogram - [facility]. Color flow ultrasound of the right breast axilla was performed on the areas of interest. Diez scale images of the real-time examination were reviewed. IMPRESSION: NEGATIVE There is no sonographic evidence of malignancy. There are no mammographic or sonographic abnormalities seen in the right axilla to correspond with th e palpable nodularities in the right axilla, however, clinical followup is recommended. A 1 year screening mammogram is recommended. This exam was interpreted at Station ID: [id number]. Electronically Signed By: Uma bernstein/annette:09/07/2022 09:13:57 Ultrasound BI-RADS: 1 Negative BI-RADS CATEGORY: (1) - 1 RECOMMENDATION: (ANNUAL) - Recommend routine annual screening mammography. [id number] 1 year screening LATERALITY: (B)
--- NOTE | 2022-09-07 10:53 | Ultrasound Report ---
LIMITED ULTRASOUND OF LEFT BREAST AND AXILLA: 09/07/2022 CLINICAL: Palpable left axilla lump. Comparison is made to exams dated: 09/07/2022 mammogram, 08/26/2021 mammogram, 08/21/2020 mammogram - [facility], 06/20/2019 mammogram, 06/19/2018 mammogram, and 05/04/2017 mammogram - [facility]. Color flow ultrasound of the left breast axilla was performed on the areas of interest. Diez scale images of the real-time examination were reviewed. IMPRESSION: NEGATIVE There is no sonographic evidence of malignancy. There are no mammographic or sonographic abnormalities seen in the left axilla to correspond with the palpable nodularities in the left axilla, however, clinical followup is recommended. A 1 year screening mammogram is recommended. This exam was interpreted at Station ID: [id number]. Electronically Signed By: Uma berntsein/annette:09/07/2022 09:14:29 Ultrasound BI-RADS: 1 Negative BI-RADS CATEGORY: (1) - 1 RECOMMENDATION: (ANNUAL) - Recommend routine annual screening mammography. [id number] 1 year screening LATERALITY: (B)
== END 2022-09-07 08:05 | disposition home or self-care (01) ==
LOC: DI 08:04
PROVIDERS: ATTEND Family Medicine
DX: N63.31 Unspecified lump in axillary tail of the right breast (principal); N63.32 Unspecified lump in axillary tail of the left breast

== ENCOUNTER 2022-09-28 10:30 | Outpatient (CLI) | payer MEDICARE, OTHER ==
--- NOTE | 2022-09-28 13:03 | DEXA Report ---
PROCEDURE: Dexa Spine and/or Hip INDICATIONS: POST MENOPAUSAL, OSTEOPOROSIS TECHNIQUE: Dual energy x-ray absorptiometry (DXA) was performed on a [employer] System. Regions measur ed are the AP Spine, femoral neck, and if needed forearm. COMPARISON: None. FINDINGS: Lumbar Spine: Bone Mineral Density 1.537 g/cm/cm,T score 3.0, normal Left Hip: Bone Mineral Density 0.921 g/cm/cm,T score -0.7, normal Left Femoral Neck: Bone Mineral Density 0.900 g/cm/cm, T score -1.0, normal (T score greater or equal to -1.0: NORMAL) (T score from -1.1 to -2.4: OSTEOPENIA) (T score less than or equal to -2.5 to: OSTEOPOROSIS) Impression: 1. Normal bone mineral density. 2. No elevated fracture risk Patients with diagnosis of osteoporosis or osteopenia should have regular bone mineral density assess ment. For those eligible for Medicare, routine testing is allowed once every 2 years. Testing frequ ency can be increased for patients who have rapidly progressing disease or for those who are receivin g medical therapy to restore bone mass. Reviewed by: Kajal Thomas MD on 09/28/2022 1:01 PM PST Approved by: Kajal Thomas MD on 09/28/2022 1:01 PM PST Station ID: [id number]
== END 2022-09-28 10:31 | disposition home or self-care (01) ==
LOC: DI 10:30
PROVIDERS: ATTEND Family Medicine
DX: Z13.820 Encounter for screening for osteoporosis (principal); N95.9 Unspecified menopausal and perimenopausal disorder

== ENCOUNTER 2022-10-19 12:35 | Outpatient (CLI) | payer MEDICARE, OTHER ==
--- NOTE | 2022-10-19 16:47 | MRI Report ---
PROCEDURE: LUMBAR SPINE WO INDICATIONS: SPINAL STENOSIS, LEFT KNEE OSTEOARTHRITIS TECHNIQUE: Noncontrast sagittal T1 spin echo and T2 fast echo, sagittal STIR, axial T1 and T2 fast spin echo thr ough the lumbar spine. In cases with scoliosis, additional coronal T2 fast spin echo may be performe d. COMPARISON: None. FINDINGS: Image quality: Excellent. Alignment and Curvature: Trace anterolisthesis of L4 on L5. Bone Marrow: Marrow is of normal overall signal. No acute vertebral body compression fractures. Spinal Cord: Conus medullaris terminates at the L1 level. Visualized cord demonstrates normal signa l and size. Paraspinous Soft Tissues: No paravertebral masses. T12-L1: No canal stenosis or foraminal stenosis. L1-L2: Mild facet hypertrophy. No canal stenosis or foraminal stenosis. L2-L3: Mild disc bulge. Prominent facet hypertrophy. Mild canal stenosis. Mild bilateral foraminal stenosis. L3-L4: Disc bulge. Quite prominent facet hypertrophy. Moderate canal stenosis. No significant elba inal stenosis. L4-L5: Disc bulge. Quite prominent facet hypertrophy. Severe canal stenosis. Mild bilateral foramin al stenosis. L5-S1: Bilateral facet hypertrophy. No significant canal stenosis. No significant foraminal stenosi s. IMPRESSION: 1. Underlying multilevel facet arthropathy, quite prominent at L3-L4 and L4-L5. 2. Canal stenosis is mild at L2-L3, moderate at L3-L4, and severe at L4-L5. Reviewed by: Angel Carmona MD on 10/19/2022 4:46 PM PST Approved by: Angel Carmona MD on 10/19/2022 4:46 PM PST Station ID: [id number]
--- NOTE | 2022-10-19 16:59 | MRI Report ---
PROCEDURE: KNEE WO - LT INDICATIONS: SPINAL STENOSIS, LEFT KNEE OSTEOARTHRITIS TECHNIQUE: Noncontrast sagittal PD fast spin echo and T2 fast spin echo with fat saturation, sagittal 3-D gradie nt sequence with fat saturation; coronal T1 spin echo and PD fast spin echo with fat saturation, and axial PD fast spin echo with fat saturation through the knee. COMPARISON: None. FINDINGS: Image quality: Excellent. Menisci: There is an oblique tear involving the body of the patient's lateral meniscus extending to t he inferior joint surface. Medial meniscus appears within normal limits. Cruciate ligaments: The anterior and posterior cruciate ligaments appear intact. Medial structures: The medial collateral ligament appears intact. The posterior oblique ligament, s emimembranosus tendon insertions, and oblique popliteal ligament, and meniscocapsular junction appear intact. Visualized portions of the pes anserinus tendons appear normal. No abnormal bursal fluid. Lateral structures: The lateral collateral ligament, long and short heads of the biceps femoris tend on appear intact. The popliteus tendon appears normal; the popliteofibular ligament appears intact. The posterosuperior and anteroinferior popliteomeniscal fascicles appear intact. The arcuate and fa bellofibular ligaments appear intact, around the lateral inferior geniculate artery. Iliotibial band appears normal. Anterior structures: The quadriceps and patellar tendons appear intact. Patellar alignment is antonella l. No femoral trochlear dysplasia or ventral trochlear prominence. No edema in the infrapatellar fa t pad. Bones and cartilage: No bone marrow contusions or fractures. There is mild to moderate chondromalaci a involving the articular surfaces of the lateral compartment and there is moderate to severe chondro malacia involving the patellofemoral joint. Joint space: There is a small knee joint effusion and small Patiño's cyst present. IMPRESSION: 1. Oblique tear involving the body of the patient's lateral meniscus extending to the inferior joint surface. 2. Myzj-pr-vlexvqka chondromalacia articular surfaces of the lateral compartment. 3. 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 4. Small knee joint effusion. 5. Small Patiño's cyst. Reviewed by: Ibrahima Gonzalez MD on 10/19/2022 4:57 PM PST Approved by: Ibrahima Gonzalez MD on 10/19/2022 4:57 PM PST Station ID: [id number]
== END 2022-10-19 12:36 | disposition home or self-care (01) ==
LOC: DI 12:35
PROVIDERS: ATTEND Orthopaedic Surgery
DX: M48.062 Spinal stenosis, lumbar region with neurogenic claudication (principal); S83.282A Other tear of lateral meniscus, current injury, left knee, initial encounter; M22.42 Chondromalacia patellae, left knee; M25.462 Effusion, left knee; M71.22 Synovial cyst of popliteal space [Baker], left knee; M47.816 Spondylosis without myelopathy or radiculopathy, lumbar region; M47.817 Spondylosis without myelopathy or radiculopathy, lumbosacral region

== ENCOUNTER 2023-01-09 11:10 | Emergency (ER) | payer MEDICARE, OTHER ==
[2023-01-09] MEDS ORDERED: IPRATROPIUM/ALBUTEROL 3 ML NEB INH STA (11:55)
[2023-01-09] MEDS ORDERED: LEVALBUTEROL 1.25 MG/3 ML NEB INH STA (12:21)
--- NOTE | 2023-01-09 12:23 | XRAY Report ---
PROCEDURE: Chest 1 View X-Ray INDICATIONS: SOA TECHNIQUE: One view of the chest was acquired. COMPARISON: 07/27/2022 FINDINGS: Surgical changes and devices: None. Lungs and pleura: No pleural effusions or pneumothorax. Lungs are clear. Mediastinum: Mediastinal contours appear normal. Heart size is normal. Bones and chest wall: No suspicious bony lesions. Overlying soft tissues appear unremarkable. IMPRESSION: No evidence acute pulmonary process. Reviewed by: Angel Carmona MD on 01/09/2023 12:22 PM PST Approved by: Angel Carmona MD on 01/09/2023 12:22 PM PST Station ID: [id number]
[2023-01-09 12:30] VITALS: BP 164/84
[2023-01-09 12:32] LABS: BASOPHILS # (AUTO) 0.1 10^3/uL (0.0-0.1); BASOPHILS % (AUTO) 0.6 %; EOSINOPHILS # (AUTO) 0.3 10^3/uL (0.0-0.7); EOSINOPHILS % (AUTO) 2.6 %; HCT - HEMATOCRIT 38.6 % (37.0-47.0); HGB - HEMOGLOBIN 13.1 g/dL (12.0-16.0); LYMPHOCYTES # (AUTO) 1.9 10^3/uL (1.5-3.5); LYMPHOCYTES % (AUTO) 16.3 %; MEAN CORPUSCULAR HEMOGLOBIN 31.7 pg (27.0-31.0); MEAN CORPUSCULAR HGB CONC 33.9 g/dL (32.0-36.0); MEAN CORPUSCULAR VOLUME 93.5 fL (81.0-99.0); MEAN PLATELET VOLUME 8.4 fL (7.9-10.8); MONOCYTES # (AUTO) 0.9 10^3/uL (0.0-1.0); MONOCYTES % (AUTO) 8.1 %; NEUTROPHILS # (AUTO) 8.3 10^3/uL (1.5-6.6); NEUTROPHILS % (AUTO) 71.6 %; PLT - PLATELET COUNT 258 10^3/uL (130-450); RED BLOOD COUNT 4.13 10^6/uL (4.20-5.40); RED CELL DISTRIBUTION WIDTH 12.3 % (12.0-15.0); WHITE BLOOD COUNT 11.6 x10^3/uL (4.8-10.8)
--- NOTE | 2023-01-09 12:36 | ED Physician Documentation ---
PD HPI DYSPNEA - Stated complaint Stated Complaint: SOA - Chief complaint Chief Complaint: Resp - History obtained from History obtained from: Patient - Additional information Additional information: Patient is a 72-year-old female with a history of asthma presenting for evaluation of shortness of breath that has been ongoing for the past 2 weeks with a cough. Patient reports her cough is nonproductive. She was seen in the walk-in clinic 1 week ago and given a course of prednisone for 5 days for bronchitis. Was also tested for flu, COVID and strep which were all negative. Patient states she has not had any improvement in her symptoms. She does have an inhaler which has not significantly improved her symptoms. She is taking Robitussin for her cough and sometimes whiskey with lemon and honey. She denies chest pain, dizziness, lightheadedness, abdominal pain, vomiting or diarrhea. Denies leg swelling or pain. 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: Uterine cancer : Kidney stones Psych: Depression - Past Surgical History General: Cholecystectomy, Appendectomy, Colonoscopy, EGD Ortho: Knee replacement /[employer]NAGER: Hysterectomy, Oophrectomy - Present Medications Home Medications: Ambulatory Orders Medication Instructions Recorded Confirmed Citalopram [CeleXA] 40 mg DAILY 01/29/20 01/29/20 Arbon-3/Dha/Epa/Fish Oil [Fish Oil 1 tab BID 01/29/20 01/29/20 1,000 mg Softgel] Pantoprazole [Protonix] 1 tab BID 01/29/20 01/29/20 Potassium Gluconate 1 tab DAILY 01/29/20 01/29/20 Rosuvastatin Calcium 1 tab 01/29/20 Ubidecarenone [Co Q-10] 1 tab DAILY 01/29/20 01/29/20 Ketorolac [Toradol] 10 mg PO Q6H PRN #30 tablet 04/17/21 Azithromycin [Zithromax] 0 mg PO DAILY #6 tablet 07/17/22 Azithromycin [Zithromax] 1 tab PO DAILY #6 tablet 01/09/23 Fluconazole [Diflucan] 150 mg PO ONCE PRN #1 tablet 01/09/23 - Allergies Allergies/Adverse Reactions: Allergies Allergy/AdvReac Type Severity Reaction Status Date / Time cephalexin [From Keflex] Allergy Unknown Verified 01/09/23 11:18 codeine Allergy Respiratory Verified 01/09/23 11:18 morphine AdvReac Emesis Verified 01/09/23 11:18 - Social History Does the pt smoke?: No Smoking Status: Never smoker Does the pt drink ETOH?: No PD ED PE NORMAL - General General: Alert and oriented X 3, No acute distress, Well developed/nourished - HEENT HEENT: Atraumatic - Neck Neck: Supple, no meningeal sign - Cardiac Cardiac: RRR, No murmur - Respiratory Respiratory: No respiratory distress, Other (Rhonchi in the right lower lung olivia; Mild expiratory wheezing) - Abdomen Abdomen: Soft, Non tender, Non distended - Derm Derm: Warm and dry - Extremities Extremities: No edema, No calf tenderness / cord Results - Vitals Vitals: Vital Signs - 24 hr 01/09/23 01/09/23 01/09/23 11:15 12:27 12:32 Temperature 36.7 C Heart Rate 100 84 73 Respiratory 20 18 Rate Blood Pressure 139/79 H 164/84 H O2 Saturation 95 98 Oxygen O2 Source Room air - EKG (time done) 1216 Rate: Rate (enter#) (80) Rhythm: NSR [place]: Normal Ischemia: No: ST elevation c/w ischemia - Labs Labs: Laboratory Tests 01/09/23 01/09/23 12:20 12:20 WBC 11.6 H RBC 4.13 L Hgb 13.1 Hct 38.6 MCV 93.5 MCH 31.7 H MCHC 33.9 RDW 12.3 Plt Count 258 MPV 8.4 Neut # (Auto) 8.3 H Lymph # (Auto) 1.9 [place] # (Auto) 0.9 Eos # (Auto) 0.3 Baso # (Auto) 0.1 Absolute Nucleated RBC 0.00 Nucleated RBC % 0.0 Sodium 135 Potassium 3.9 Chloride 99 L Carbon Dioxide 29 Anion Gap 7.0 BUN 17 Creatinine 0.7 Estimated GFR (MDRD) 82 L Glucose 101 H Calcium 9.1 Total Bilirubin 0.8 AST 22 ALT 38 Alkaline Phosphatase 55 Total Protein 6.9 Albumin 3.7 Globulin 3.2 Albumin/Globulin Ratio 1.2 PD Medical Decision Making - ED course Complexity details: reviewed results, re-evaluated patient, d/w patient ED course: Patient presenting for evaluation of shortness of breath and cough for 2 weeks. She has a history of asthma and recently completed a course of prednisone which did not improve her symptoms. History does not suggest ACS or pulmonary emboli sm. She has mild wheezing on exam as well as some coarse rhonchi. Her vital signs are stable. Her EKG is reviewed without signs of acute ischemia. Her chest x-ray is also reviewed and I do not appreciate any focal consolidation or effusion. Her labs including CBC and chemistries are reviewed without significant findings. She is feeling better after 1 neb treatment and was given instruction on how to use a spacer.Although her chest x-ray does not show an infiltrate she does have some rhonchi on exam and may have an early pneumonia.In shared decision making with the patient we have opted to treat with a course of antibiotics. Patient is counseled on treatment plan as well as concerning symptoms to return for. Patient reports not feeling much better while she was on the prednisone so I do not feel a another course is warranted at this time. Departure - Departure Disposition: 01 Home, Self Care Clinical Impression: CAP (community acquired pneumonia) Condition: Stable Instructions: ED Pneumonia Adult Prescriptions: Fluconazole [Diflucan] 150 mg PO ONCE PRN #1 tablet PRN Reason: yeast infection Azithromycin [Zithromax] 1 tab PO DAILY #6 tablet Comments: You may have an early pneumonia that is not showing up on your chest x-ray. As you have not gotten any improvement with steroid use or inhaler use I am going to prescribe a short course of antibiotics for treatment of a lung infection. I have sent this prescription to [facility] in [place]. Please make sure to continue with your inhaler using the spacer as directed. You have any worsening symptoms please consider return to the emergency department. Discharge Date/Time: 01/09/23 13:17
[2023-01-09 12:44] LABS: ALBUMIN 3.7 g/dL (3.2-5.5); ALBUMIN/GLOBULIN RATIO 1.2 (1.0-2.2); BILIRUBIN,TOTAL 0.8 mg/dL (0.2-1.0); CALCIUM 9.1 mg/dL (8.5-10.3); CREATININE 0.7 mg/dL (0.4-1.0); POTASSIUM 3.9 mmol/L (3.5-5.0); TOTAL PROTEIN 6.9 g/dL (6.7-8.2)
== END 2023-01-09 13:17 | disposition home or self-care (01) ==
LOC: ED 11:10
DX: J18.9 Pneumonia, unspecified organism (principal)
CPT/HCPCS: 36415; 80053; 85025; 93005; 94640; 94664; 99284

== ENCOUNTER 2023-07-10 08:27 | Outpatient (CLI) | payer MEDICARE, OTHER ==
[2023-07-10 08:43] LABS: BASOPHILS # (AUTO) 0.1 10^3/uL (0.0-0.1); EOSINOPHILS # (AUTO) 0.1 10^3/uL (0.0-0.7); EOSINOPHILS % (AUTO) 1.7 %; HCT - HEMATOCRIT 40.7 % (37.0-47.0); HGB - HEMOGLOBIN 13.6 g/dL (12.0-16.0); LYMPHOCYTES # (AUTO) 1.5 10^3/uL (1.5-3.5); LYMPHOCYTES % (AUTO) 18.3 %; MEAN CORPUSCULAR HEMOGLOBIN 31.1 pg (27.0-31.0); MEAN CORPUSCULAR HGB CONC 33.4 g/dL (32.0-36.0); MEAN CORPUSCULAR VOLUME 93.1 fL (81.0-99.0); MEAN PLATELET VOLUME 8.5 fL (7.9-10.8); MONOCYTES # (AUTO) 0.5 10^3/uL (0.0-1.0); NEUTROPHILS # (AUTO) 6.1 10^3/uL (1.5-6.6); NEUTROPHILS % (AUTO) 72.8 %; PLT - PLATELET COUNT 255 10^3/uL (130-450); RED BLOOD COUNT 4.37 10^6/uL (4.20-5.40); RED CELL DISTRIBUTION WIDTH 12.1 % (12.0-15.0); WHITE BLOOD COUNT 8.4 x10^3/uL (4.8-10.8)
[2023-07-10 08:44] LABS: BILIRUBIN,URINE NEGATIVE (NEGATIVE); GLUCOSE, URINE (UA) NEGATIVE (NEGATIVE); KETONES,URINE (UA) NEGATIVE (NEGATIVE); LEUKOCYTE ESTERASE, URINE NEGATIVE (NEGATIVE); NITRITE,URINE NEGATIVE (NEGATIVE); OCCULT BLOOD,URINE NEGATIVE (NEGATIVE); PH,URINE 6.5 PH (5.0-7.5); PROTEIN,URINE NEGATIVE (NEGATIVE); UROBILINOGEN,URINE 0.2 (NORMAL) E.U./dL (NORMAL)
[2023-07-10 08:51] LABS: CLARITY,URINE CLEAR (CLEAR); RBC,URINE 0-5 /HPF (0-5); SQUAMOUS EPITHELIAL CELL,UR MOD Squamous (<= Few); WBC,URINE 0-3 /HPF (0-5)
[2023-07-10 08:52] LABS: BACTERIA,URINE Rare /HPF (None Seen)
[2023-07-10 08:59] LABS: CALCIUM 9.5 mg/dL (8.5-10.3); CREATININE 0.8 mg/dL (0.6-1.3); POTASSIUM 3.9 mmol/L (3.5-4.5)
[2023-07-10 09:11] LABS: ESTIMATED AVERAGE GLUCOSE 103 mg/dL (70-100); HEMOGLOBIN A1c% 5.2 % (4.27-6.07)
== END 2023-07-10 08:28 | disposition home or self-care (01) ==
LOC: LAB 08:27
PROVIDERS: ATTEND Orthopaedic Surgery
DX: Z01.812 Encounter for preprocedural laboratory examination (principal); M25.562 Pain in left knee; R73.9 Hyperglycemia, unspecified; N39.0 Urinary tract infection, site not specified
CPT/HCPCS: 36415; 80048; 81001; 83036; 85025; 87086; 93005

== ENCOUNTER 2023-07-28 08:55 | Outpatient (CLI) | payer MEDICARE, OTHER ==
--- NOTE | 2023-07-29 01:00 | CT Report ---
PROCEDURE: HEAD WO INDICATIONS: HEADACHE TECHNIQUE: Noncontrast 4.5 mm thick angled axial sections acquired from the foramen magnum to the vertex. For r adiation dose reduction, the following was used: automated exposure control, adjustment of mA and/or kV according to patient size. COMPARISON: Correlation is made with brain MRI, 11/04/2019. FINDINGS: Image quality: Excellent. CSF spaces: Basal cisterns are patent. No extra-axial fluid collections. Ventricles are normal in size and shape. Brain: No midline shift. No intracranial masses or hemorrhage. Diez-white matter interface is norm al. Age-appropriate brain parenchymal volume loss and chronic small vessel ischemic change can be se en. Skull and face: Calvarium and visualized facial bones are intact, without suspicious lesions. Sinuses: Visualized sinuses and mastoids are clear. IMPRESSION: Unremarkable noncontrast head CT for age, without a cause of headache identified. To the limits of noncontrast CT, the findings of masses or mass effect can be seen. Reviewed by: Triston Guillory MD on 07/28/2023 11:59 PM JAYDA Approved by: Triston Guillory MD on 07/28/2023 11:59 PM JAYDA Station ID: [id number]
== END 2023-07-28 08:56 | disposition home or self-care (01) ==
LOC: DI 08:55
PROVIDERS: ATTEND Student in an Organized Health Care Education/Training Program
DX: R51.9 Headache, unspecified (principal)

== ENCOUNTER 2024-02-06 08:29 | Outpatient (CLI) | payer MEDICARE, OTHER ==
--- NOTE | 2024-02-06 12:56 | XRAY Report ---
PROCEDURE: Chest 2V INDICATIONS: COUGH TECHNIQUE: 2 views of the chest were acquired. COMPARISON: None. FINDINGS: Surgical changes and devices: Surgical clip is projected over the right upper quadrant.. Lungs and pleura: No pleural effusions or pneumothorax. Lungs are clear. Mediastinum: Mediastinal contours appear normal. Heart size is normal. Bones and chest wall: No suspicious bony lesions. Overlying soft tissues appear unremarkable. IMPRESSION: No acute cardiopulmonary abnormality is seen. Reviewed by: Mathew Suresh MD on 02/06/2024 12:55 PM PDT Approved by: Mathew Suresh MD on 02/06/2024 12:55 PM PDT Station ID: [id number]
== END 2024-02-06 08:30 | disposition home or self-care (01) ==
LOC: DI 08:29
PROVIDERS: ATTEND Student in an Organized Health Care Education/Training Program
DX: R05.3 Chronic cough (principal)

== ENCOUNTER 2024-07-12 09:02 | Outpatient (CLI) | payer MEDICARE, OTHER ==
--- NOTE | 2024-07-16 08:10 | Mammography Report ---
BILATERAL DIGITAL SCREENING MAMMOGRAM 3D/2D: 07/12/2024 CLINICAL: Routine screening. Comparison is made to exams dated: 09/07/2022 mammogram, 08/26/2021 mammogram, 08/21/2020 mammogram - [facility], 06/20/2019 mammogram, 06/19/2018 mammogram, and 05/04/2017 mammogram - [facility]. There are scattered areas of fibroglandular density in both breasts (category b / 25%-50% glandular t issue). There are benign calcifications in both breasts. No significant masses, calcifications, or other findings are seen in either breast. There has been no significant interval change. IMPRESSION: BENIGN There is no mammographic evidence of malignancy. A 1 year screening mammogram is recommended. Based on the Tyrer Cuzick model (a risk assessment model) the patient's lifetime risk is 4.7% and her 10 year risk is 4.3%. According to the ACR, ACS, and NCCN guidelines, an annual breast MRI exam alex g with mammogram is recommended if the patient's lifetime risk is 20% or greater. This exam was interpreted at Station ID: [id number]. NOTE: For mammograms, a report in lay terms will be sent to the patient. Approximately 15% of breast malignancies will not be visualized mammographically. In the management of a palpable breast mass, a negative mammogram must not discourage biopsy of a clinically suspicious lesion. Electronically Signed By: Kajal beltran/annette:07/12/2024 15:17:12 letter sent: No_Letter ACR BI-RADS Category 2: Benign Finding(s) 3342F PARENCHYMAL PATTERN: (A) - The breast(s) demonstrate(s) scattered fibroglandular densities. BI-RADS CATEGORY: (2) - 2 RECOMMENDATION: (ANNUAL) - Recommend routine annual screening mammography. [id number] 1 year screening LATERALITY: (B)
== END 2024-07-12 09:03 | disposition home or self-care (01) ==
LOC: DI 09:02
PROVIDERS: ATTEND Student in an Organized Health Care Education/Training Program
DX: Z12.31 Encounter for screening mammogram for malignant neoplasm of breast (principal); R92.323 Mammographic fibroglandular density, bilateral breasts; R92.1 Mammographic calcification found on diagnostic imaging of breast